=== PATIENT | male | born 1960 | race Caucasian/White ===

== ENCOUNTER → 2018-05-29 11:10 | Outpatient (CLI) | payer MEDICARE, SELFPAY ==
[2018-05-29 12:02] LABS: Basophils % 0.6 % (0.1-2.0); Eosinophils # 0.2 K/mm3 (0.0-0.4); Eosinophils % 2.5 % (0.1-12.0); Hematocrit 50.8 % (42.0-52.0); Lymphocytes # 2.2 K/mm3 (0.7-4.5); Lymphocytes % 31.4 % (10-50); Mean Corpuscular HGB Conc 33.5 g/dL (31.8-35.4); Mean Corpuscular Hemoglobin 30.9 pg (27.0-31.2); Mean Corpuscular Volume 92.2 fl (80-94); Mean Platelet Volume 7.3 fl (7.4-10.4); Monocytes # 0.5 K/mm3 (0.1-1.0); Monocytes % 6.9 % (1.7-9.3); Neutrophils # 4.1 K/mm3 (1.8-7.8); Neutrophils % 58.6 % (37.0-80.0); Platelet Count 241 K/mm3 (142-424); Red Blood Count 5.51 M/mm3 (4.60-6.20)
[2018-05-29 14:37] LABS: Alanine Aminotransferase 23 U/L (12-78); Albumin Level 4.2 gm/dL (3.4-5.0); Albumin/Globulin Ratio 1.1 (1.1-1.8); Alkaline Phosphatase 86 U/L (46-116); Anion Gap 15.7 mEq/L (5-15); Aspartate Amino Transferase 19 U/L (15-37); Bilirubin,Total 0.4 mg/dL (0.2-1.0); Blood Urea Nitrogen 22 mg/dL (7-18); Calcium 9.4 mg/dL (8.5-10.1); Carbon Dioxide 26 mmol/L (21.0-32.0); Chloride 104 mmol/L (98-107); Cholesterol 176 mg/dL (140-200); Creatinine,Serum 1.34 mg/dL (0.70-1.30); Estimated Glomerular Filt Rate 55 ml/min (>60); GFR (African American) 67 ML/MIN (>60); Globulin 3.7 gm/dl (1.3-3.2); Glucose 70 mg/dL (74-106); HDL Cholesterol 25 mg/dL (27-67); LDL Cholesterol 106 mg/dL (0-130); Potassium 4.7 mmoL/L (3.5-5.1); Sodium 141 mmol/L (136-145); Total Protein,Serum 7.9 gm/dL (6.4-8.2); Triglycerides 223 mg/dL (30-200); VLDL Cholesterol 45 mg/dL (0-40)
== END ==
PROVIDERS: PCP Family Medicine; Visit Provider Family Medicine
DX: R97.20 Elevated prostate specific antigen [PSA] (principal); I10 Essential (primary) hypertension; E78.5 Hyperlipidemia, unspecified
CPT/HCPCS: 36415; 80053; 80061; 84153; 85025

== ENCOUNTER → 2018-11-03 12:28 | Outpatient (CLI) | payer MEDICARE, SELFPAY ==
--- NOTE | 2018-11-03 12:32 | CT_ITS ---
CT lung screening EXAM: CT LUNG LOW DOSE WO CONTRAST HISTORY: 57 pack year smoking history, asymptomatic for lung cancer ITS.REASON: CURRENT TOBACCO USE ORDERING PHYSICIAN: Ganesh Garcia MD PATIENT AGE: 58 years COMPARISON: None TECHNIQUE: The exam was performed on a GE Light Speed [address] scanner using 2.90 mGy CTDI. A low dose helical CT CHEST was performed on a multi-detector scanner. All CT scans at the facility use one or more dose reduction, viz: automated exposure control, ma/kV adjustment per patient size (including targeted exams where dose is matched to indication, i.e. head), or iterative reconstruction technique. The LDCT was performed in a facility that meets the criteria for the screening program. Data regarding this exam was submitted to ACR which is an approved registry. The order for this exam indicates that it came as a result of a lung cancer screening counseling shard decision-making visit that included all the elements required of such a visit including smoking cessation. The radiologist interpreting this exam meets the CMS criteria for the LDCT lung cancer screening program. The exam is reported using the Lung-RADS classification scale and reported to the ACR registry. NOTE: This study was performed for the specific purposes of lung cancer screening and is not an alternative to diagnostic chest CT. RADIATION DOSE: CTDI vol(CT dose Index-volume) = 2.90mG DLP (Dose Length Product) = 107.86 all by mGcm FINDINGS: There is a right-sided aortic arch as a normal variant. Along the anterior and left lateral aspect of the proximal descending thoracic aorta there is a curvilinear area of calcification measuring 11 mm. Is may be due to a small aneurysm. Dedicated CT angiogram of the aorta suggested for further evaluation. There are coronary artery calcifications and calcified nodes are present. There is normal heart size. There is hyperinflation with attenuation of the peripheral pulmonary vessels consistent with COPD. A 4 mm nodule present in the right major fissure inferiorly axial image #48. There is mild diffuse bronchial thickening calcified granuloma is present in the left lower lobe there is an oval 13 x 8 mm nodular opacity along the left major fissure centrally possibly due to a fissural lymph node. Probably benign. Recommend 6 month follow-up. There are degenerative changes in the lower thoracic spine. IMPRESSION: 1. Lung RADS Category: 3, probably benign 2. 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 Recommend CT angiogram of the chest evaluation. COPD. Coronary artery disease RECOMMENDATIONS: 1. CT angiogram of the thoracic aorta. 2. [address] follow-up regarding 13 x 8 mm fissural nodule on the left.
== END ==
PROVIDERS: PCP Family Medicine; Visit Provider Family Medicine
DX: Z12.2 Encounter for screening for malignant neoplasm of respiratory organs (principal); Z87.891 Personal history of nicotine dependence

== ENCOUNTER → 2018-12-22 14:35 | Outpatient (CLI) | payer MEDICARE, SELFPAY ==
[2018-12-22 15:57] LABS: Blood Urea Nitrogen 18 mg/dL (7-18); Creatinine,Serum 1.53 mg/dL (0.70-1.30); Estimated Glomerular Filt Rate 47 ml/min (>60); GFR (African American) 57 ML/MIN (>60)
== END ==
PROVIDERS: Visit Provider Family Medicine
DX: I71.2 Thoracic aortic aneurysm, without rupture (principal)
CPT/HCPCS: 36415; 82565; 84520

== ENCOUNTER → 2018-12-23 12:41 | Outpatient (CLI) | payer MEDICARE, SELFPAY ==
--- NOTE | 2018-12-23 12:45 | CT_ITS ---
CT angio chest HISTORY: ITS.REASON: THORACIC AORTIC ANEURYSM ORDERING PHYSICIAN: Ganesh Garcia MD PATIENT AGE: 58 years COMPARISON: 11/03/2018. TECHNIQUE: Axial images obtained following the administration of 75 mL of Optiray 350 . Sagittal, and coronal reformatted images are also generated and reviewed. All CT scans at the facility use one or more dose reduction, viz: automated exposure control, ma/kV adjustment per patient size (including targeted exams where dose is matched to indication, i.e. head), or iterative reconstruction technique. FINDINGS: The airway structures are patent. The small nodules described on the prior report are stable. The remainder of the lung coburn are clear without pleural effusion or pneumothorax. There is a right-sided aortic arch. The left common carotid artery arises from the medial proximal ascending aorta followed by the origin of the right common carotid artery and then followed by the right subclavian artery which gives rise immediately to the right vertebral artery. There is no innominate artery. There is a diverticulum from the left lateral aspect of the proximal descending thoracic aorta and this measures 1.2 x 1.4 cm and at the tip of the diverticulum there is a small soft tissue density with peripheral calcification which does not opacify and could be related to the area of the ligamentous arteriosum. There is a centimeters segment of nonopacification distal to this area followed by contrast in the left-sided cleaving artery likely because of retrograde filling through the left vertebral artery. Remainder of the mediastinal and hilar areas are normal. Heart size is normal. Visualized portions of the upper abdominal structures are unremarkable. Impression: Stable lung nodules described on 11/03/2018 report. 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 No other change or acute process.
== END ==
PROVIDERS: PCP Family Medicine; Visit Provider Family Medicine
DX: I71.2 Thoracic aortic aneurysm, without rupture (principal); Q65.01 Congenital dislocation of right hip, unilateral
CPT/HCPCS: 71275; Q9967

== ENCOUNTER → 2019-07-27 11:06 | Outpatient (CLI) | payer MEDICARE, SELFPAY ==
--- NOTE | 2019-07-27 11:11 | XR_ITS ---
PROCEDURE: XR HIP RT 2-3V W/PELVIS CLINICAL INDICATION: RT HIP PAIN COMPARISON: LS5 LUMBAR SPINE 5 VIEWS from 03/21/2014 FINDINGS: There is deformity of the right femoral head and neck with enlargement the femoral head with flattening of the femoral head superiorly and osteophyte formation along the inferior aspect of the femoral head. There is decrease in the joint space on the right. No fracture or dislocation. IMPRESSION: Dysplastic changes of the right hip/coxa plana with mild osteoarthritic changes of the right hip Dictated by: Saroj Matthew MD 07/27/2019 11:56 Electronically signed by Saroj Matthew MD in [place] 07/27/2019 11:56
== END ==
PROVIDERS: PCP Family Medicine; Visit Provider Family Medicine
DX: Q65.01 Congenital dislocation of right hip, unilateral (principal)
CPT/HCPCS: 73502

== ENCOUNTER → 2020-10-23 13:48 | Outpatient (CLI) | payer MEDICARE, SELFPAY ==
--- NOTE | 2020-10-23 13:55 | XR_ITS ---
PROCEDURE: XR KNEE LT 4V CLINICAL INDICATION: left knee pain COMPARISON: No exams were available for comparison FINDINGS: No fracture or dislocation. No lytic or blastic change. There is normal mineralization. There are severe osteoarthritic changes of the medial compartment and patellofemoral joint and mild osteoarthritis of the lateral compartment. Osteophytes are present at the medial and lateral compartment and patellofemoral joint. There is a well-circumscribed lucency involving the proximal aspect of the tibia medially at 11 mm possibly due to a geode or bone cyst. Other findings:There is a small suprapatellar effusion IMPRESSION: Severe osteoarthritis with small suprapatellar effusion Dictated by: Saroj Matthew MD 10/23/2020 14:55 Saroj Matthew MD in [place] 10/23/2020 14:55
--- NOTE | 2020-10-23 13:55 | XR_ITS ---
PROCEDURE: XR KNEE RT 4V CLINICAL INDICATION: right knee pain COMPARISON: No exams were available for comparison FINDINGS: Status post total knee replacement. There is good alignment of the knee prosthesis with no obvious complications. There is increased density in the suprapatellar region which may be due to associated effusion. Other findings:None. IMPRESSION: Status post total knee replacement with good alignment Dictated by: Saroj Matthew MD 10/23/2020 15:00 Saroj Matthew MD in [place] 10/23/2020 15:00
--- NOTE | 2020-10-23 13:55 | XR_ITS ---
PROCEDURE: XR HIP LT 2-3V W/PELVIS RIGHT HIP 2-3 VIEWS CLINICAL INDICATION: left hip pain COMPARISON: DX XR HIP RT 2-3V W/PELVIS from 07/27/2019 CR XR HIP RT 2-3V W/PELVIS from 10/23/2020 FINDINGS: Right hip: Severe osteoarthritic changes are present involving the right hip with prominent subchondral cystic changes of the acetabulum and femoral head with deformity of the femoral head on the right/coxa plana. These findings are not significantly changed. There is a lucency in the mid femoral neck region possibly due to artifact. In addition there is a sclerotic density in the intertrochanteric area unchanged. The subchondral cystic changes are worse than when compared to the previous exam with areas of sclerosis around the subchondral cystic regions. There is mild lateral subluxation of the femoral head. Left hip: Unremarkable. No fracture or dislocation. No lytic or blastic change. IMPRESSION: Severe osteoarthritis of the right hip slightly progressed with subchondral cystic changes and deformity of the right femoral head/coxa plana. Negative left hip Dictated by: Saroj Matthew MD 10/23/2020 15:00 Saroj Matthew MD in [place] 10/23/2020 15:00
== END ==
PROVIDERS: PCP Family Medicine; Visit Provider Thoracic Surgery (Cardiothoracic Vascular Surgery)
DX: M25.551 Pain in right hip (principal); M25.561 Pain in right knee; M25.552 Pain in left hip; M25.562 Pain in left knee
CPT/HCPCS: 73502; 73564

== ENCOUNTER → 2021-01-25 11:57 | Outpatient (CLI) | payer MEDICARE, SELFPAY ==
--- NOTE | 2021-01-25 12:06 | XR_ITS ---
PROCEDURE: XR CHEST 2V CLINICAL HISTORY: Pure hyperglyceridemia COMPARISON: CT AGCHEST CT angio chest from 12/23/2018 FINDINGS: Mild cardiomegaly without failure. The lungs are clear without infiltrates, suspicious nodules, or pleural effusions. Degenerative changes thoracic spine IMPRESSION: Mild cardiomegaly otherwise negative Dictated by: Saroj Matthew MD 01/25/2021 13:12 Saroj Matthew MD in [place] 01/25/2021 13:12
[2021-01-25 12:33] LABS: Microscopic, Urine URINE MICROSCOPIC (MICROSCOPIC)
--- NOTE | 2021-01-25 12:38 | ECG_ITS ---
APPROVED REPORT Exam: Resting ECG HR:84 bpm ECG Measurements Heart Rate 84 AXES WA 154 P 41 QRSd 88 QRS 54 QT 352 T 32 QTc 415 Conclusion Normal sinus rhythm Cannot rule out Anterior infarct, age undetermined Abnormal ECG Electronically signed by : Jama Pryor MD 01/25/2021 18:52:18
[2021-01-25 13:27] LABS: Basophils # 0.1 K/mm3 (0-0.2); Basophils % 0.8 % (0.1-2.0); Eosinophils # 0.1 K/mm3 (0.0-0.4); Eosinophils % 1.3 % (0.1-12.0); Hemoglobin 16.2 g/dL (14.1-18.0); Lymphocytes # 2.2 K/mm3 (0.7-4.5); Lymphocytes % 27.5 % (10-50); Mean Corpuscular HGB Conc 33.8 g/dL (31.8-35.4); Mean Corpuscular Hemoglobin 31.6 pg (27.0-31.2); Mean Corpuscular Volume 93.4 fl (80-94); Mean Platelet Volume 8.9 fl (7.4-10.4); Monocytes # 0.4 K/mm3 (0.1-1.0); Monocytes % 5.4 % (1.7-9.3); Neutrophils # 5.1 K/mm3 (1.8-7.8); Neutrophils % 65.1 % (37.0-80.0); Platelet Count 264 K/mm3 (142-424); Red Blood Count 5.14 M/mm3 (4.60-6.20); Red Cell Distribution Width 13.6 % (11.5-17.5); White Blood Count 7.9 K/mm3 (4.8-10.8)
[2021-01-25 13:31] LABS: Appearance,Urine CLEAR (Clear); Bilirubin,Urine Negative (Negative); Blood, Urine Negative (Negative); Color,Urine YELLOW (Yellow); Glucose,Urine (UA) Negative (Negative); Ketones,Urine Negative (Negative); Leukocyte Esterase,Urine Negative (Negative); Nitrate,Urine Negative (Negative); PH,Urine 5.5 (5.0-8.5); Protein,Urine Negative (Negative); Specific Gravity, Urine 1.025 (1.005-1.030); Urobilinogen,Urine 0.2 EU/dl (0.2)
[2021-01-25 13:46] LABS: Activated Partial Thrombo Time 27.3 seconds (22.8-30.6); Hemoglobin A1C 5.9 % (4.0-6.0); Prothrombin Time 11.2 seconds (10.1-12.5)
[2021-01-25 13:48] LABS: INR 0.95 (0.9-1.1)
[2021-01-25 14:16] LABS: Alanine Aminotransferase 19 U/L (12-78); Albumin Level 4.2 g/dl (3.5-5.0); Albumin/Globulin Ratio 1.2 (1.1-1.8); Alkaline Phosphatase 125 U/L (38-126); Anion Gap 17.3 mEq/L (5-15); Aspartate Amino Transferase 43 U/L (17-59); Bilirubin,Total 0.9 mg/dl (0.2-1.3); Blood Urea Nitrogen 16 mg/dl (9-20); Calcium 9.4 mg/dl (8.4-10.2); Carbon Dioxide 25 mmol/L (22.0-30.0); Chloride 102 mmol/L (98-107); Chol/HDL Ratio 6.1 (1-3.5); Cholesterol 183 mg/dl (140-200); Estimated Glomerular Filt Rate 62 ml/min (>60); GFR (African American) 75 ML/MIN (>60); Globulin 3.4 g/dL (1.3-3.2); Glucose 115 mg/dl (74-100); HDL Cholesterol 30 mg/dl (40-60); Potassium 4.3 mmoL/L (3.5-5.1); Sodium 140 mmol/L (136-145); Total Protein,Serum 7.6 g/dl (6.3-8.2); Triglycerides 330 mg/dl (30-150); VLDL Cholesterol 66 mg/dL (0-40)
[2021-01-25 14:21] LABS: Squamous Epithelial Cell,Urine Occasional #/hpf (0-5)
[2021-01-25 14:27] LABS: Direct LDL Cholesterol 92.27 mg/dL (100-129)
[2021-01-25 14:46] LABS: Prostate Specific Ag Screen 7.4 ng/ml (0.0-4.0)
== END ==
PROVIDERS: PCP Family Medicine; Visit Provider Family Medicine
DX: Z01.818 Encounter for other preprocedural examination (principal); I10 Essential (primary) hypertension; E78.1 Pure hyperglyceridemia; Z12.5 Encounter for screening for malignant neoplasm of prostate; Z51.81 Encounter for therapeutic drug level monitoring; Z79.899 Other long term (current) drug therapy
CPT/HCPCS: 36415; 71046; 80053; 80061; 81001; 83036; 85025; 85610; 85730; 93005; G0103

== ENCOUNTER → 2021-02-07 07:43 | Outpatient (CLI) | payer MEDICARE, SELFPAY ==
--- NOTE | 2021-02-07 07:52 | CA_ITS ---
APPROVED REPORT EXAM: Comprehensive 2D, Doppler, and color-flow Echocardiogram Ice Resurfacing Machine Operators: Layne Palmer RVT Ht: 6 ft 0 in Wt: 273lbs BSA: 2.43 BP: 151/89 mmHg Indications: LT RETINAL ART OCCLUSION,HTN,SMOKER,HLD,SOA,GERD,EDEMA 2D Dimensions LVOT 2.58 cm (M/F) 1.5-2.5 LA Volume 24.90 mL LA Volume Index 10.24 mL/m2 (M/F) 16-34 M-Mode Dimensions RVDd 2.53 cm (0.9-2.6) LA Diam 4.26 cm (1.9-4.0) LVDd 3.60 cm (3.5-5.7) Ao Diam 3.32 cm (2.0-3.7) LVDs 2.46 cm (3.5-5.7) IVSd 1.10 cm (0.6-1.1) PWd 0.98 cm (0.6-1.1) EF (Teich) 60.70% FS 31.70% EDV (Teich) 54.40 mL TAPSE 2.17 (<1.7) ESV (Teich) 21.40 mL LV Diastology E Decel Time 290.00 (160-240 msec) E/A Ratio 0.7 MED E' 4.40 (< 7 cm/sec) E'/MED E' Ratio 18.43 (>14) LAT E' 9.00 (<10 cm/sec) E/LAT E' Ratio 9.01 (>14) Aortic Valve AO Peak GR. 6.30 mmHg Mitral Valve MV E Max Ministerio. 81.00 (40-130 cm/s) MV A Velocity 122.00 (40-130 cm/s) E/A Ratio 0.67 MV Decel. Time 290.00 (160-240 ms) MV PHT 85.00 ms Pulmonary Valve PV Peak Velocity 95.00 (50-150 cm/s) Left Ventricle Left atrium is mildly enlarged, left ventricle is normal size, mild concentric left ventricular hypertrophy, visually estimated ejection fraction 55% with no regional wall motion abnormality, grade 1 diastolic dysfunction seen without tissue Doppler evidence of raise left atrial pressure. Right Ventricle Right atrium and right ventricle are normal size and contractility. Aortic Valve Aortic valve is thickened and calcified without Doppler evidence of aortic stenosis or aortic insufficiency. Mitral Valve Mitral valve leaflets are minimally thickened, there is mild mitral regurgitation. Tricuspid Valve Tricuspid valve is grossly normal, there is mild tricuspid regurgitation. Tricuspid regurgitation jet velocity is inadequate for calculation of the right ventricular systolic pressure. Pulmonic Valve Pulmonic valve is poorly visualized. Great Vessels Aortic root is normal size. Pericardium No significant pericardial effusion noted. Conclusion 1. Mildly enlarged left atrium, normal left ventricular size, mild concentric left ventricular hypertrophy, visually estimated ejection fraction 55% with no regional wall motion abnormality, grade 1 diastolic dysfunction seen without tissue Doppler evidence of raise left atrial pressure. 2. Thickened and calcified aortic valve without aortic stenosis or aortic insufficiency. 3. Mild mitral and tricuspid regurgitation. 4. No significant pericardial effusion noted. Electronically signed by : Kyle Bland MD 02/08/2021 10:37:10
--- NOTE | 2021-02-07 07:53 | CA_ITS ---
APPROVED REPORT Advertising Dispatch Clerk: Layne Palmer RVT Laterality: Bilateral Study Quality: Good Indications: LT RETINAL ART OCCLUSION,LT VISUAL DISTURBANCE Risk Factors Hypertension: Hyperlipidemia Smoking Doppler Spectral Velocity Analysis ECA (R) 121.90/24.60 cm/s ECA (L) 100.50/20.30 cm/s dICA (R) 68.40/24.60 cm/s dICA (L) 74.90/31.00 cm/s Sandra (R) 65.20/25.70 cm/s Sandra (L) 87.70/35.30 cm/s pICA (R) 80.20/18.20 cm/s pICA (L) 75.90/27.80 cm/s dCCA (R) 62.00/17.10 cm/s dCCA (L) 71.60/15.00 cm/s pCCA (R) 112.30/21.40 cm/s pCCA (L) 93.00/22.50 cm/s Vert (R) 56.70/13.90 cm/s Vert (L) 69.50/2.10 cm/s ICA/CCA 1.29 ICA/CCA 1.22 Findings Study suggests less than 20% stenosis of the right internal cartoid artery. Study suggests 20-49% stenosis (lower end of scale) of the left internal cartoid artery. Retrograde flow seen in the left verterbral artery. Antegrade flow in the right verterbral artery. Conclusion Study suggests less than 20% stenosis of the right internal cartoid artery. Study suggests 20-49% stenosis (lower end of scale) of the left internal cartoid artery. Retrograde flow seen in the left verterbral artery suggesting stenosis of left subclavian artery. Antegrade flow in the right verterbral artery. Electronically signed by : Saroj Matthew MD 02/07/2021 17:57:47
== END ==
PROVIDERS: PCP Family Medicine
DX: H34.12 Central retinal artery occlusion, left eye (principal); H35.00 Unspecified background retinopathy; R06.02 Shortness of breath; I10 Essential (primary) hypertension; Z72.0 Tobacco use
CPT/HCPCS: 93306; 93880

== ENCOUNTER → 2021-02-11 10:41 | Outpatient (CLI) | payer MEDICARE, SELFPAY ==
[2021-02-11 11:31] LABS: Basophils # 0.1 K/mm3 (0-0.2); Basophils % 0.9 % (0.1-2.0); Eosinophils # 0.2 K/mm3 (0.0-0.4); Eosinophils % 2.7 % (0.1-12.0); Hematocrit 48.4 % (42.0-52.0); Hemoglobin 16.2 g/dL (14.1-18.0); Lymphocytes % 27.7 % (10-50); Mean Corpuscular HGB Conc 33.4 g/dL (31.8-35.4); Mean Corpuscular Hemoglobin 31.4 pg (27.0-31.2); Mean Corpuscular Volume 93.8 fl (80-94); Mean Platelet Volume 7.6 fl (7.4-10.4); Monocytes # 0.4 K/mm3 (0.1-1.0); Monocytes % 5.2 % (1.7-9.3); Neutrophils # 4.6 K/mm3 (1.8-7.8); Neutrophils % 63.5 % (37.0-80.0); Platelet Count 223 K/mm3 (142-424); Red Blood Count 5.16 M/mm3 (4.60-6.20); White Blood Count 7.2 K/mm3 (4.8-10.8)
[2021-02-11 12:15] LABS: Erythrocyte Sedimentation Rate 17 mm/hr (0-20)
[2021-02-11 12:26] LABS: Alanine Aminotransferase 18 U/L (12-78); Albumin Level 3.9 g/dl (3.5-5.0); Alkaline Phosphatase 91 U/L (38-126); Amylase 50 U/L (30-110); Anion Gap 14.3 mEq/L (5-15); Aspartate Amino Transferase 28 U/L (17-59); Bilirubin,Direct 0.3 mg/dl (0.0-0.4); Bilirubin,Indirect 0.2 mg/dL (0.0-0.9); Bilirubin,Total 0.5 mg/dl (0.2-1.3); Bilirubin,Unconjugated 0.2 mg/dL (0.0-1.1); Blood Urea Nitrogen 17 mg/dl (9-20); Calcium 9.4 mg/dl (8.4-10.2); Carbon Dioxide 26 mmol/L (22.0-30.0); Chloride 104 mmol/L (98-107); Estimated Glomerular Filt Rate 57 ml/min (>60); GFR (African American) 69 ML/MIN (>60); Glucose 113 mg/dl (74-100); Lipase 28 U/L (23-300); Potassium 4.3 mmoL/L (3.5-5.1); Sodium 140 mmol/L (136-145); Total Protein,Serum 7.3 g/dl (6.3-8.2)
[2021-02-11 12:32] LABS: C-Reactive Protein 11.7 mg/L (0-4)
[2021-02-11 12:44] LABS: Prothrombin Time 11.1 seconds (10.1-12.5)
[2021-02-11 12:46] LABS: INR 0.94 (0.9-1.1)
[2021-02-12 09:37] LABS: HIV Screen 4th Generation wRfx Non Reactive (Non Reactive)
[2021-02-12 17:29] LABS: Treponema pallidum Ab (FTA-ABS Non Reactive (Non Reactive)
[2021-02-13 00:07] LABS: Protein C Functional 98 % (73-180); Protein S, Free 124 % (61-136); Protein S, Total 93 % (60-150); Protein S-Functional 102 % (63-140)
[2021-02-13 02:08] LABS: Rapid Plasma Reagin Ab Titer Non Reactive (NonRea<1:1)
[2021-02-14 17:38] LABS: QuantiFERON-TB Gold Plus Negative (Negative)
== END ==
PROVIDERS: Visit Provider Ophthalmology Retina Specialist
DX: H34.12 Central retinal artery occlusion, left eye (principal); Z11.4 Encounter for screening for human immunodeficiency virus [HIV]
CPT/HCPCS: 36415; 80048; 80076; 81241; 82150; 83690; 85025; 85302; 85305; 85306; 85610; 85651; 86140; 86480; 86592; 86703; 86780; G0432

== ENCOUNTER → 2021-05-03 11:09 | Outpatient (CLI) | payer MEDICARE, SELFPAY ==
[2021-05-03 11:16] LABS: Microscopic, Urine URINE MICROSCOPIC (MICROSCOPIC)
--- NOTE | 2021-05-03 11:21 | XR_ITS ---
PROCEDURE: XR CHEST 2V CLINICAL HISTORY: HIGH BLOOD PRESSURE, PRE-OPERATIVE COMPARISON: CT AGCHEST CT angio chest from 12/23/2018 CR XR CHEST 2V from 01/25/2021 FINDINGS: There is a right-sided aortic arch. Normal heart size. The lungs are clear without infiltrates, suspicious nodules, or pleural effusions. Degenerative changes thoracic spine. IMPRESSION: No change with no acute finding. Incidental note made of right-sided aortic arch Dictated by: Saroj Matthew MD 05/03/2021 11:53 Saroj Matthew MD in [place] 05/03/2021 11:53
[2021-05-03 12:00] LABS: Basophils # 0.1 K/mm3 (0-0.2); Basophils % 1.1 % (0.1-2.0); Eosinophils # 0.2 K/mm3 (0.0-0.4); Hematocrit 48.4 % (42.0-52.0); Hemoglobin 16.1 g/dL (14.1-18.0); Lymphocytes # 2.6 K/mm3 (0.7-4.5); Lymphocytes % 30.6 % (10-50); Mean Corpuscular HGB Conc 33.3 g/dL (31.8-35.4); Mean Corpuscular Hemoglobin 30.9 pg (27.0-31.2); Mean Corpuscular Volume 92.8 fl (80-94); Mean Platelet Volume 8.6 fl (7.4-10.4); Monocytes # 0.4 K/mm3 (0.1-1.0); Neutrophils # 5.1 K/mm3 (1.8-7.8); Neutrophils % 61.3 % (37.0-80.0); Platelet Count 272 K/mm3 (142-424); Red Blood Count 5.22 M/mm3 (4.60-6.20); Red Cell Distribution Width 13.5 % (11.5-17.5); White Blood Count 8.3 K/mm3 (4.8-10.8)
[2021-05-03 12:29] LABS: Chloride 104 mmol/L (98-107); Potassium 5.1 mmoL/L (3.5-5.1); Sodium 140 mmol/L (136-145)
[2021-05-03 12:31] LABS: Alanine Aminotransferase 13 U/L (12-78); Aspartate Amino Transferase 28 U/L (17-59); Blood Urea Nitrogen 15 mg/dl (9-20); Estimated Glomerular Filt Rate 52 ml/min (>60); GFR (African American) 63 ML/MIN (>60)
[2021-05-03 12:32] LABS: Albumin Level 4.1 g/dl (3.5-5.0); Albumin/Globulin Ratio 1.4 (1.1-1.8); Alkaline Phosphatase 100 U/L (38-126); Anion Gap 13.1 mEq/L (5-15); Bilirubin,Total 0.4 mg/dl (0.2-1.3); Calcium 9.7 mg/dl (8.4-10.2); Carbon Dioxide 28 mmol/L (22.0-30.0); Globulin 2.9 g/dL (1.3-3.2); Glucose 107 mg/dl (74-100)
[2021-05-03 15:08] LABS: INR 0.99 (0.9-1.1); Prothrombin Time 11.2 seconds (10.1-12.5)
[2021-05-03 23:10] LABS: Appearance,Urine CLEAR (Clear); Bilirubin,Urine Negative (Negative); Blood, Urine Negative (Negative); Color,Urine YELLOW (Yellow); Glucose,Urine (UA) Negative (Negative); Ketones,Urine Negative (Negative); Leukocyte Esterase,Urine Negative (Negative); Nitrate,Urine Negative (Negative); Protein,Urine Negative (Negative); Specific Gravity, Urine 1.025 (1.005-1.030); Urobilinogen,Urine 0.2 EU/dl (0.2)
[2021-05-03 23:30] LABS: Bacteria,Urine Trace /lpf; Squamous Epithelial Cell,Urine Occasional #/hpf (0-5); WBC,Urine Occasional #/hpf (0-3)
== END ==
PROVIDERS: Visit Provider Family Medicine
DX: Z01.818 Encounter for other preprocedural examination (principal); Z51.81 Encounter for therapeutic drug level monitoring
CPT/HCPCS: 36415; 71046; 80053; 81001; 85025; 85610; 85730

== ENCOUNTER → 2021-07-03 13:14 | Outpatient (CLI) | payer MEDICARE, SELFPAY | PROVIDERS: PCP Family Medicine; Visit Provider Nurse Practitioner | DX: Z20.822 Contact with and (suspected) exposure to COVID-19 (principal) | CPT/HCPCS: C9803; U0003; U0005 ==

== ENCOUNTER → 2021-09-20 15:14 | Outpatient (CLI) | payer MEDICARE, SELFPAY ==
--- NOTE | 2021-09-20 15:18 | XR_ITS ---
FINAL REPORT CLINICAL HISTORY: HTN COMPARISON: May 03, 2021 FINDINGS: TWO-VIEW CHEST The heart size is normal. The mediastinum is normal. The lungs are clear. There is no pneumothorax. There is moderate degenerative change of the thoracic spine. IMPRESSION: No acute cardiopulmonary process. Reviewed, Interpreted and Dictated by Darrin Morfin III, MD Transcribed by [employer] Authenticated by Darrin Morfin III, MD on 09/20/2021 03:55:37 PM [facility]
[2021-09-20 15:42] LABS: Microscopic, Urine URINE MICROSCOPIC (MICROSCOPIC)
--- NOTE | 2021-09-20 15:59 | ECG_ITS ---
APPROVED REPORT Exam: Resting ECG HR:89 bpm ECG Measurements Heart Rate 89 AXES WV 168 P 29 QRSd 95 QRS 71 QT 343 T 41 QTc 389 Conclusion SINUS RHYTHM LOW QRS VOLTAGE IN PRECORDIAL LEADS [QRS DEFLECTION < 1.0 mV IN CHEST LEADS] POSSIBLE ANTERIOR MYOCARDIAL INFARCTION , OF INDETERMINATE AGE [30 ms Q WAVE IN V3/V4, OR R < 0.2 mV IN V4] ABNORMAL ECG UNCONFIRMED REPORT Electronically signed by : Jama Pryor MD 09/21/2021 12:09:42
--- NOTE | 2021-09-20 16:45 | PC.NURSE ---
Kyle Olivas read pts EKG before leaving facility.
[2021-09-20 17:01] LABS: Appearance,Urine CLEAR (Clear); Bilirubin,Urine Negative (Negative); Blood, Urine Negative (Negative); Color,Urine YELLOW (Yellow); Glucose,Urine (UA) Negative (Negative); Ketones,Urine Negative (Negative); Leukocyte Esterase,Urine Negative (Negative); Nitrate,Urine Negative (Negative); Protein,Urine Negative (Negative); Urobilinogen,Urine 0.2 EU/dl (0.2)
[2021-09-20 17:02] LABS: Basophils # 0.1 K/mm3 (0-0.2); Basophils % 1.9 % (0.1-2.0); Eosinophils # 0.2 K/mm3 (0.0-0.4); Eosinophils % 2.3 % (0.1-12.0); Hematocrit 46.7 % (42.0-52.0); Hemoglobin 15.7 g/dL (14.1-18.0); Lymphocytes # 2.8 K/mm3 (0.7-4.5); Mean Corpuscular HGB Conc 33.7 g/dL (31.8-35.4); Mean Corpuscular Volume 92.2 fl (80-94); Mean Platelet Volume 8.4 fl (7.4-10.4); Monocytes # 0.5 K/mm3 (0.1-1.0); Monocytes % 6.3 % (1.7-9.3); Neutrophils % 52.5 % (37.0-80.0); Platelet Count 264 K/mm3 (142-424); Red Blood Count 5.07 M/mm3 (4.60-6.20); Red Cell Distribution Width 13.8 % (11.5-17.5); White Blood Count 7.6 K/mm3 (4.8-10.8)
[2021-09-20 17:15] LABS: Activated Partial Thrombo Time 26.9 seconds (22.8-30.6); INR 0.97 (0.9-1.1)
[2021-09-20 17:19] LABS: Chloride 106 mmol/L (98-107); Potassium 4.2 mmoL/L (3.5-5.1); Sodium 138 mmol/L (136-145)
[2021-09-20 17:21] LABS: Blood Urea Nitrogen 15 mg/dl (9-20); Estimated Glomerular Filt Rate 52 ml/min (>60); GFR (African American) 63 ML/MIN (>60)
[2021-09-20 17:22] LABS: Anion Gap 11.2 mEq/L (5-15); Calcium 8.8 mg/dl (8.4-10.2); Carbon Dioxide 25 mmol/L (22.0-30.0); Glucose 77 mg/dl (74-100)
[2021-09-20 18:14] LABS: Squamous Epithelial Cell,Urine Occasional #/hpf (0-5)
== END ==
PROVIDERS: PCP Family Medicine; Visit Provider Family Medicine
DX: Z01.818 Encounter for other preprocedural examination (principal); Z51.81 Encounter for therapeutic drug level monitoring
CPT/HCPCS: 36415; 71046; 80048; 81001; 85025; 85610; 85730; 93005

== ENCOUNTER → 2021-10-11 07:11 | Outpatient (CLI) | payer MEDICARE, SELFPAY ==
--- NOTE | 2021-10-11 | CA_ITS ---
APPROVED REPORT Exam: Pharmacologic Technologist: Naheed Juarez, Ht: 6 ft 0 in Wt: 276 lbs BSA: 2.44 m2 HR: 63 bpm BP: 121/70 mmHg Rhythm: NSR, NSSTTN abnormalities Medical History Medical History: Smoking Medications: Omeprazole,,,,, Aspirin,,,,, Gabapentin,,,,, Benazepril,,,,, Naproxen,,,,, ZanTAC,,,,, MoRPHINE,,,,, Cardiac Risk Factors: Smoking, FHX of CAD Stress Test Details Test: LEXISCAN HR Resting HR: 75 bpm Max Heart Rate (APMHR): 161.401576 bpm Max HR Achieved: 96 bpm Target HR (85% APMHR): 136.636632 bpm % of APMHR: 59.63 Recovery HR: 79 bpm BP Resting BP: 121/70 mmHg Max BP: 132/77 mmHg Recovery BP: 115.0/75.0 mmHg ECG Resting ECG: NSR, NSSTTN abnormalities Clinical Reason for Termination: Completed Protocol Exercise duration: 04:02 min Highest Stage Achieved: Stress ECG Conclusion During lexiscan pt experinced no symptoms, no arrhythmias noted. <1.5mm ST segment changes. Non diagnostic. Test Summary . . . . . . Stop exercise at 04:02 . . . . Electronically signed by : Kyle Bland MD 10/11/2021 13:01:24
--- NOTE | 2021-10-11 07:19 | NM_ITS ---
APPROVED REPORT Exam: Nuclear Stress Test Indication: HTN, HYPERLIPIDEMIA, TOB USE, FM HX., SOB, FATIGUE Patient Location: Outpatient Stress Tech: Naheed Juarez [place] Tech:KIP Kelly RT (R)(N)(M) Ht: 6 ft 0 in Wt: 278 lbs HR: 63 bpm BP: 121/70 mmHg BSA: 2.45 m2 TID: 63 History: HTN, HYPERLIPIDEMIA, TOB USE, FM HX., SOB, FATIGUE Procedure: Patient received a 0.4 mg of intravenous Lexiscan, resting heart rate 63 bpm, resting blood pressure 121/70 mmHg, with Lexiscan maximum heart rate achived was 84 bpm which is Less than 85 % of the maximum predicted heart rate and blood pressure was 115/70 mmHg. With Lexiscan, patient denied any complaint of chest pain. Electrocardiogram Resting electrocardiogram shows sinus rhythm, with Lexiscan there is less than 1.[address] segment depression noted from the baseline EKG. The EKG portion of the Lexiscan is nondiagnostic. Cardiac Stress and Resting SPECT Images: Cardiac Stress and Resting SPECT images were obtained using technetium 99m Myoview 31.8 mCi stress and 10.34 mCi at rest. Gated SPECT for analysis of segmental wall motion and calculation of the ejection fraction also done, prone images were also obtained. Cardiac stress and rest SPECT images show fixed defect involving the inferior posterior basal wall consistent with area of myocardial scarring without significant renate-infarct ischemia, there is transient ischemic dilatation of the left ventricle seen, raising the concern for presence of multivessel coronary artery disease, computer derived ejection fraction is 58% with moderate inferior basal wall hypokinesis, right ventricle is mildly enlarged with normal contractility. Conclusion: 1. The EKG portion of the Lexiscan is nondiagnostic. 2. Scintigraphic evidence of myocardial scarring involving the inferior and posterior basal wall, there is transient ischemic dilatation of the left ventricle seen raising the concerns for presence of multivessel coronary artery disease. Computer derived ejection fraction 58% with segmental wall motion abnormality described above, right ventricle is mildly enlarged with normal contractility. 3. Abnormal Lexiscan Myoview study. Electronically signed by : Kyle Bland MD 10/11/2021 13:04:21
[2021-10-11 11:31] LABS: Alanine Aminotransferase 21 U/L (12-78); Albumin Level 4.1 g/dl (3.5-5.0); Alkaline Phosphatase 86 U/L (38-126); Aspartate Amino Transferase 26 U/L (17-59); Bilirubin,Indirect 0.3 mg/dL (0.0-0.9); Bilirubin,Total 0.3 mg/dl (0.2-1.3); Bilirubin,Unconjugated 0.3 mg/dL (0.0-1.1); Chol/HDL Ratio 6.9 (1-3.5); Cholesterol 165 mg/dl (140-200); HDL Cholesterol 24 mg/dl (40-60); Triglycerides 270 mg/dl (30-150); VLDL Cholesterol 54 mg/dL (0-40)
[2021-10-11 11:42] LABS: Direct LDL Cholesterol 98.81 mg/dL (100-129)
== END ==
PROVIDERS: PCP Family Medicine; Visit Provider Nurse Practitioner
DX: F17.200 Nicotine dependence, unspecified, uncomplicated (principal); K21.9 Gastro-esophageal reflux disease without esophagitis; R06.00 Dyspnea, unspecified; R94.31 Abnormal electrocardiogram [ECG] [EKG]; Z82.49 Family history of ischemic heart disease and other diseases of the circulatory system; E78.5 Hyperlipidemia, unspecified
CPT/HCPCS: 36415; 78452; 80061; 80076; 93017; A9502; J2785

== ENCOUNTER → 2021-10-22 09:35 | Outpatient (CLI) | payer MEDICARE, SELFPAY ==
[2021-10-22 10:37] LABS: Basophils # 0.1 K/mm3 (0-0.2); Basophils % 1.9 % (0.1-2.0); Eosinophils # 0.1 K/mm3 (0.0-0.4); Hematocrit 45.9 % (42.0-52.0); Hemoglobin 15.7 g/dL (14.1-18.0); Lymphocytes # 2.4 K/mm3 (0.7-4.5); Lymphocytes % 33.4 % (10-50); Mean Corpuscular HGB Conc 34.2 g/dL (31.8-35.4); Mean Corpuscular Hemoglobin 31.7 pg (27.0-31.2); Mean Corpuscular Volume 92.9 fl (80-94); Mean Platelet Volume 7.5 fl (7.4-10.4); Monocytes # 0.5 K/mm3 (0.1-1.0); Monocytes % 7.3 % (1.7-9.3); Neutrophils # 3.9 K/mm3 (1.8-7.8); Neutrophils % 55.4 % (37.0-80.0); Platelet Count 236 K/mm3 (142-424); Red Blood Count 4.94 M/mm3 (4.60-6.20); Red Cell Distribution Width 13.8 % (11.5-17.5); White Blood Count 7.1 K/mm3 (4.8-10.8)
[2021-10-22 10:51] LABS: Anion Gap 10.7 mEq/L (5-15); Blood Urea Nitrogen 18 mg/dl (9-20); Calcium 9.5 mg/dl (8.4-10.2); Carbon Dioxide 30 mmol/L (22.0-30.0); Chloride 102 mmol/L (98-107); Estimated Glomerular Filt Rate 52 ml/min (>60); GFR (African American) 63 ML/MIN (>60); Glucose 97 mg/dl (74-100); Potassium 4.7 mmoL/L (3.5-5.1); Sodium 138 mmol/L (136-145)
== END ==
PROVIDERS: Visit Provider Nurse Practitioner
DX: F17.200 Nicotine dependence, unspecified, uncomplicated (principal); I10 Essential (primary) hypertension; I20.8 Other forms of angina pectoris; K21.9 Gastro-esophageal reflux disease without esophagitis; R06.00 Dyspnea, unspecified; R94.31 Abnormal electrocardiogram [ECG] [EKG]; R94.39 Abnormal result of other cardiovascular function study; Z82.49 Family history of ischemic heart disease and other diseases of the circulatory system; I63.9 Cerebral infarction, unspecified
CPT/HCPCS: 36415; 80048; 85025; C9803; U0003; U0005

== ENCOUNTER 2021-10-23 08:48 | Day surgery (SDC) | payer MEDICARE, SELFPAY ==
[2021-10-23] VITALS (11 sets, daily range): BP systolic 84–170; BP diastolic 44–100; PULSE 61–80; RESP 16–20; TEMP 36.1; O2SAT 65–100; BMI 37.5
--- NOTE | 2021-10-23 07:09 | IR_ITS ---
APPROVED REPORT Patient Location: Outpatient Desktop [employer] Specialist: KIP Rodriguez RT (R) PROCEDURES Selective coronary angiogram Drug-eluting stent deployment to the ostial proximal mid circumflex artery INDICATION Acute non-ST elevation myocardial infarction, Coronary artery disease Informed consent was obtained prior to the procedure. COMPLICATIONS See below Estimated Blood Loss: LESS THAN 10 ML TECHNIQUE One percent lidocaine used to anesthetize the right anterior aspect of the wrist. The right radial artery was accessed via the Seldinger technique. A 6 Swazi sheath was placed in the right radial artery. 2.5 mg of verapamil, 800 mcg of nitroglycerin, 1mg Lidocaine and 5000 U Heparin were given through the arterial sheath. The papa catheter was also used to perform l selective coronary angiogram. At the end of the diagnostic angiogram therapeutic heparin was administered giving a therapeutic ACT. A Choice PT extra-support wire was placed into the circumflex artery followed by a guide liner. A 2 mm balloon was used to predilate the stenosis following this a 2.25 x 38 mm resolute Sourav stent was deployed at 20 manda reducing the critical stenosis to 0%. An additional 2.25 x 8 mm resolute [place] stent was placed proximal to this in the ostium and deployed at 22 manda reducing the severe stenosis to 0%. MARVIN-3 flow was present before and after the procedure. At the end of procedure there was a demonstrable small distal wire perforation accompanied by MARVIN-3 flow. The apparatus was removed the sheath was removed good hemostasis was achieved using TR banding patient was transferred to the postop putting her stable condition for stat echocardiogram ANGIOGRAPHIC RESULTS The left main artery Has a distal 30% stenosis The left anterior descending artery Is a small caliber vessel and has a proximal 30 to 40% stenosis. The LAD then bifurcates and gives rise to a large first diagonal artery which has a proximal to mid vessel 50% stenosis The circumflex artery Is a nondominant yet still large vessel and has a proximal 90% stenosis followed by a stent which then has an additional 50% in-stent restenotic lesion. The right coronary artery Is a massively large dominant vessel which has proximal 20 and 30% stenosis followed by mid vessel stent which has a mid vessel 50% stenosis followed by a small vascular ectatic area followed by diffuse 40% stenosis. A large posterior descending artery has an ostial 80% stenosis while the posterior lateral branch is large has an ostial 70% stenosis The OSPINA ventriculogram reveals Not performed The left ventricular end-diastolic pressure Not measured IMPRESSION Critical disease in the ostial proximal circumflex artery as described above with successful stenting reducing the stenosis to 0% Small wire perforation identified distally in the circumflex artery Coronary artery disease as described above PLAN 1. Stat echocardiogram 2. Serial echocardiogram in 1 hour and monitor for cardiac tamponade 3. Dual antiplatelet therapy 4. After 30 days I would like for patient to be seen at [facility] to determine if he is a possible candidate for bypass surgery. My suspicion is patient's lung disease is severe enough where he is not a candidate from a pulmonary standpoint 5. Cardiac rehabilitation 6. LDL less than 55 to be achieved with high intensity statin Electronically signed by : Dionisio Earl MD 10/23/2021 12:52:03
== END 2021-10-23 14:46 | disposition home or self-care (01) ==
LOC: CATHLAB 08:49
PROVIDERS: PCP Family Medicine; Visit Provider Internal Medicine
DX: F17.200 Nicotine dependence, unspecified, uncomplicated (principal); I25.118 Atherosclerotic heart disease of native coronary artery with other forms of angina pectoris; K21.9 Gastro-esophageal reflux disease without esophagitis; R06.00 Dyspnea, unspecified; R94.31 Abnormal electrocardiogram [ECG] [EKG]; R94.39 Abnormal result of other cardiovascular function study; Z82.49 Family history of ischemic heart disease and other diseases of the circulatory system; Z79.899 Other long term (current) drug therapy; I10 Essential (primary) hypertension; E78.5 Hyperlipidemia, unspecified
CPT/HCPCS: 93458; 99152; C1725; C1760; C1769; J1644; Q9967

== ENCOUNTER 2021-11-13 12:02 | Emergency (ER) | payer MEDICARE, SELFPAY ==
[2021-11-13 12:10] VITALS: BP 129/75; PULSE 84; RESP 19; TEMP 37.1; O2SAT 96; BMI 31.1
--- NOTE | 2021-11-13 12:34 | HMH.EDUTC ---
[facility] Disposition Clinical Impression: Exposure to COVID-19 virus Disposition: Home, Self-Care Condition on Discharge: Good Instructions: DI for COVID-19 (Suspected or Confirmed ), Preventing the Spread of Coronavirus Discharge Instructions Additional Instructions: *Monitor Temp, Over the counter Motrin or Tylenol as directed/as needed Tylenol every 4 hours and Motrin every 6 hours (as long as your family doctor has told you that you can take it) for fever or pain. and straight to ER if unable to lower temp less than 101.0 after medication given *Warm salt water gargles may help to soothe the throat *Throat Lozenges *Warm fluids like tea with honey may help to soothe the throat *Sleep elevated *Humidifier/Vaporizer *Flonase 2 sprays in each nostril daily but be aware that it may take 2-3 days before you notice improvement *Bromfed may cause drowsiness. Know how it effects you (your child) before driving, caring for small child, or sending your child to school. Not other antihistamines/allergy medications while taking bromfed Your throat swab was sent for culture. Those results are typically sent to your primary care. Be sure to follow up in 2-3 days with your family doctor/primary care physician if no improvement so they can review those result and treat if necessary. If you don?t have a primary care doctor, I recommend you get one but in the mean time, you will have to return to a walk in clinic Follow up IMMEDIATELY for new or worsening symptoms or no Noticeable improvement over the next 48-72 hours. 911 for difficulty breathing or swallowing You were tested for today for COVID19 your test result should be back in the next 24-48 hours, you may check your results on the [facility] My Health Portal Make sure to take your Vitamins Vit. C Vit D and Zinc if you can take them Referrals: Ganesh Garcia MD [Primary Care Provider] - As needed Forms: Work/School Release Medical Decision Making - Landry Inquiry Pt receiving controlled substance: No [place]ry was queried for this patient: No Vital Signs: 11/13/21 12:10 Temperature 98.8 F Temperature Source Oral Pulse Rate [Right Brachial] 84 Respiratory Rate 19 Blood Pressure [Right Arm] 129/75 Blood Pressure Mean [Right Arm] 93 Blood Pressure Source [Right Arm] Automatic Cuff Blood Pressure Position [Right Arm] Sitting 02 Sat by Pulse Oximetry 96 Oxygen Delivery Method Room Air Orders (Tests/Meds): ORDERS Category Date Time Status Covid-19 Nasal PCR ([facility]) Routine Lab 11/13/21 12:15 Received [facility] HPI - General Stated complaint: covid test Time Seen by Provider: 11/13/21 12:34 Mode of Arrival: Ambulatory Source of Information: Patient Limitations: No Limitations Description of Symptoms (Recalled from Triage Doc. by RN): PATIENT REQUESTING COVID TEST D/T EXPOSURE. C/O FEVER HEENT Symptoms (Recalled from RN notes): No Resp Symptoms (Recalled from RN notes): No Skin Symptoms (Recalled from RN notes): No MS Symptoms (Recalled from RN notes): No Functional Status (Recalled from RN notes): WNL - History of Present Illness Provider Complaint: Patient states that his and daughter recently tested positive for COVID now he has started having nasal congestion and fever so he wanted to come in and get tested - Related Data Home Medications Medication Instructions Recorded Confirmed aspirin 81 mg tablet,delayed 81 mg PO DAILY 07/15/18 11/06/21 release morphine 15 mg tablet,extended 15 mg PO Q12H 07/15/18 11/06/21 release naproxen 500 mg tablet 500 mg PO BID 07/15/18 11/06/21 ranitidine HCl 150 mg tablet 150 mg PO DAILY 07/15/18 11/06/21 omeprazole 40 mg capsule,delayed 40 mg PO DAILY 10/23/20 11/06/21 release gabapentin 400 mg capsule 800 mg PO BID cap 10/22/21 11/06/21 loratadine 10 mg tablet 10 mg PO DAILY PRN tab 10/22/21 11/06/21 Rosuvastatin Calcium 20 mg PO DAILY 10/23/21 11/06/21 benazepril 20 mg tablet 10 mg PO DAILY tab 11/06/21 0
[2021-11-13 12:40] VITALS: BP 129/75; PULSE 84; RESP 19; TEMP 37.1; O2SAT 96
== END 2021-11-13 12:44 | disposition home or self-care (01) ==
PROVIDERS: Emergency Provider Nurse Practitioner; PCP Family Medicine
DX: U07.1 COVID-19 (principal)
CPT/HCPCS: 99212; C9803; G0463; U0003; U0005

== ENCOUNTER 2022-01-21 12:47 | Outpatient (RCR) | payer MEDICARE, SELFPAY | END 2022-01-21 23:59 | disposition home or self-care (01) | LOC: PT 12:47 | PROVIDERS: Visit Provider Thoracic Surgery (Cardiothoracic Vascular Surgery) | DX: I25.10 Atherosclerotic heart disease of native coronary artery without angina pectoris (principal); Z95.1 Presence of aortocoronary bypass graft ==

== ENCOUNTER → 2022-04-17 13:03 | Outpatient (CLI) | payer MEDICARE, MEDICAID, SELFPAY ==
--- NOTE | 2022-04-17 13:07 | CT_ITS ---
FINAL REPORT CLINICAL HISTORY: H/O NICOTINE DEPENDENCE FINDINGS: Low-Dose Chest CT Axial images were obtained from the lung apex to the mid abdomen by computed tomography. Low-dose protocol was utilized. CTDI vol (mGy): 2.90 DLP (mGy-cm): 105.77 Multiple median sternotomy wires are present. There is no axillary adenopathy. There is no hilar or mediastinal adenopathy. The heart is proper size. There is a right aortic arch in the descending thoracic aorta descends along the right side of the spine. There is no pericardial or pleural effusion. Lung window images demonstrate no suspicious infiltrate or nodule. Limited images of the upper abdomen are unremarkable. IMPRESSION: Lung RADS category 1. Recommend 12 month follow-up low-dose chest CT. Reviewed, Interpreted and Dictated by Andrés Castellanos MD Transcribed by Marti Hernandez Authenticated and [facility]
== END ==
PROVIDERS: PCP Family Medicine; Visit Provider Family Medicine
DX: Z87.891 Personal history of nicotine dependence (principal); Z12.2 Encounter for screening for malignant neoplasm of respiratory organs
CPT/HCPCS: 71271

== ENCOUNTER 2022-09-21 20:50 | Emergency (ER) | payer MEDICARE, MEDICAID, SELFPAY ==
[2022-09-21 21:00] VITALS: BP 110/76; PULSE 82; RESP 14; TEMP 36.7; O2SAT 96; BMI 37.4
--- NOTE | 2022-09-21 21:08 | CT_ITS ---
PROCEDURE INFORMATION: Exam: CT Right Lower Extremity With Contrast, Hip Exam date and time: 09/21/2022 9:48 PM Age: 62 years old Clinical indication: Other: Fever; Additional info: Fever, S/P hip repair x 4 weeks prior TECHNIQUE: Imaging protocol: CT of the right lower extremity with intravenous contrast was performed. Exam focused on the hip. Radiation optimization: All CT scans at this facility use at least one of these dose optimization techniques: automated exposure control; mA and/or kV adjustment per patient size (includes targeted exams where dose is matched to clinical indication); or iterative reconstruction. Contrast material: ISOVUE; Contrast volume: 75 ml; Contrast route: IV; REPORTING DATA: Count of CT and Cardiac NM exams in prior 12 months: This patient has received [address] and 0 known cardiac nuclear medicine studies in the 12 months prior to the current study. COMPARISON: CR XR HIP RT 2-3V W/PELVIS 10/23/2020 2:01 PM FINDINGS: Bones/joints: Right total hip arthroplasty. Soft tissues: No postsurgical abscess identified. IMPRESSION: No abscess identified.
[2022-09-21 21:20] LABS: Basophils # 0.1 K/mm3 (0-0.2); Basophils % 0.5 % (0.1-2.0); Eosinophils # 0.1 K/mm3 (0.0-0.4); Eosinophils % 1.2 % (0.1-12.0); Hematocrit 41.6 % (42.0-52.0); Hemoglobin 13.5 g/dL (14.1-18.0); Lymphocytes # 1.9 K/mm3 (0.7-4.5); Lymphocytes % 19.8 % (10-50); Mean Corpuscular HGB Conc 32.6 g/dL (31.8-35.4); Mean Corpuscular Hemoglobin 29.4 pg (27.0-31.2); Mean Corpuscular Volume 90.4 fl (80-94); Mean Platelet Volume 7.8 fl (7.4-10.4); Monocytes # 0.6 K/mm3 (0.1-1.0); Monocytes % 6.5 % (1.7-9.3); Neutrophils # 6.8 K/mm3 (1.8-7.8); Neutrophils % 72.1 % (37.0-80.0); Platelet Count 267 K/mm3 (142-424); Red Cell Distribution Width 13.8 % (11.5-17.5); White Blood Count 9.5 K/mm3 (4.8-10.8)
[2022-09-21 21:22] LABS: Chloride 100 mmol/L (98-107); Sodium 136 mmol/L (136-145)
[2022-09-21 21:23] LABS: Potassium 3.4 mmoL/L (3.5-5.1)
[2022-09-21 21:25] LABS: Alanine Aminotransferase 14 U/L (12-78); Albumin Level 3.7 g/dl (3.5-5.0); Albumin/Globulin Ratio 0.9 (1.1-1.8); Alkaline Phosphatase 88 U/L (38-126); Anion Gap 12.4 mEq/L (5-15); Aspartate Amino Transferase 20 U/L (17-59); Bilirubin,Total 0.6 mg/dl (0.2-1.3); Blood Urea Nitrogen 12 mg/dl (9-20); Carbon Dioxide 27 mmol/L (22.0-30.0); Creatinine Clearance Estimated 116 mL/min (50-200); Estimated Glomerular Filt Rate 62 ml/min (>60); GFR (African American) 75 ML/MIN (>60); Globulin 3.9 g/dL (1.3-3.2); Total Protein,Serum 7.6 g/dl (6.3-8.2)
[2022-09-21 21:26] LABS: Calcium 8.9 mg/dl (8.4-10.2); Glucose 173 mg/dl (74-100)
[2022-09-21 21:31] LABS: C-Reactive Protein 163.2 mg/L (0-4)
[2022-09-21 21:32] LABS: Lactic Acid 1.3 mmol/L (0.7-2.1)
--- NOTE | 2022-09-21 21:38 | HMH.EDFEV ---
Discharge Plan Disposition Patient Disposition: Home, Self-Care Prescriptions Prescriptions: New levofloxacin 500 mg tablet 500 mg PO DAILY Qty: 7 0RF No Action morphine 15 mg tablet extended release 15 mg PO Q12H aspirin [Aspir-81] 81 mg tablet,delayed release (DR/EC) 81 mg PO DAILY gabapentin 400 mg capsule 800 mg PO BID omeprazole 40 mg capsule,delayed release(DR/EC) 40 mg PO DAILY loratadine 10 mg tablet 10 mg PO DAILY PRN (Reason: allergies) Label Comments: TAKE ONE TABLET BY MOUTH EVERY DAY naproxen sodium [Aleve] 220 mg tablet 220 mg PO BID PRN (Reason: Pain) rosuvastatin 20 mg tablet 40 mg PO DAILY isosorbide mononitrate 30 mg tablet extended release 24 hr See Rx Instructions .ROUTE .COMPLEX Rx Instructions: TAKE ONE TABLET BY MOUTH EVERY DAY metoprolol succinate 25 mg tablet extended release 24 hr See Rx Instructions .ROUTE .COMPLEX Rx Instructions: TAKE 1 AND 1/2 TABLET BY MOUTH TWICE DAILY Referrals Follow up/Referrals: Ganesh Garcia MD [Primary Care Provider] - See instructions Clinical Impressions Clinical Impression: Acute febrile illness Instructions Patient Instructions: DI for Fever (Symptom) -- Adult Discharge ED Provider: Arjun (ED),Orion Jacobson Fever HPI General Chief Complaint: Fever Stated Complaint: fever,cough SOB Back&Knee Pain Time Seen by Provider: 09/21/22 21:38 Mode of Arrival: Family Vehicle Source of Information: Patient and Medical Record Limitations: No Limitations Description of Symptoms (Recalled from ER Triage Doc. by RN): 62 YO MALE PRESENTS WITH CC OF 'FEVER AT NIGHT ONLY X 2 NIGHTS'. PATIENT IS ALERT ORIENTED, DESCRIBES HAVING A TOTAL HIP REPLACEMENT 4 WEEKS AGO AT [facility] BY DR CONWAY. INCISION IS CLOSED WITH EDGES WELL APPROXIMATED, STERI STRIPS IN PLACE. DISTAL THIRD OF INCISION APPEARS TO BE SLIGHTLY REDDENED WITH SOME MILD EDEMA AND WARMTH TO TOUCH. PATIENT DENIES CHANGES IN PAIN. PATIENT DENIES COUGH/SOA/DYSPNEA. PATIENT DENIES CP. PATIENT DENIES N/V/D. STATES HAD 1ST BM IN 1 WEEK THIS MORNING. SOME KIDNEY PAIN ASSOCIATED WITH DYSURIA PRIOR TO BM. PT REVEALS NO ADDITIONAL SYMPTOMS AT THIS TIME. CONCERNED BECAUSE THE 'FEVER ONLY COMES ON AT NIGHT'. TREATING WITH OTC MEDICATIONS AND PRESCRIBED ANALGESICS. History of Present Illness HPI Narrative: fever over the last 2 days w/o dysuria or cough did have some back pain - had recent rt hip surg about 4 weeks ago - MD complaint: fever Onset (ago): day(s) Context: recent procedure Associated symptoms: denies other symptoms Related Data Home Medications Medication Instructions Recorded Confirmed aspirin 81 mg tablet,delayed 81 mg PO DAILY prevent 07/15/18 09/21/22 release (Aspir-) morphine 15 mg tablet,extended 15 mg PO Q12H Pain 07/15/18 09/21/22 release omeprazole 40 mg capsule,delayed 40 mg PO DAILY stomach 10/23/20 09/21/22 release gabapentin 400 mg capsule 800 mg PO BID Pain 10/22/21 09/21/22 loratadine 10 mg tablet 10 mg PO DAILY PRN allergies 10/22/21 09/21/22 rosuvastatin 20 mg tablet 40 mg PO DAILY Cholesterol 02/07/22 09/21/22 naproxen sodium 220 mg tablet 220 mg PO BID PRN Pain 05/16/22 09/21/22 (Aleve) isosorbide mononitrate 30 mg See Rx Instructions .Route 09/21/22 09/21/22 tablet,extended release 24 hr .COMPLEX CARDIAC metoprolol succinate 25 mg See Rx Instructions .Route 09/21/22 09/21/22 tablet,extended release 24 hr .COMPLEX CARDIAC Previous Rx's Medication Instructions Recorded levofloxacin 500 mg tablet 500 mg PO DAILY #7 tabs 09/22/22 Allergies Allergy/AdvReac Type Severity Reaction Status Date / Time No Known Allergies Allergy Verified 05/16/22 13:42 [facility] Disclaimer: The information contained in this section may have been updated after the patient was seen, as this information can be updated by other users. Medical History (Reviewed 05/16/22 @ 13:42 by
[2022-09-21 21:44] VITALS: BP 118/83; PULSE 94; RESP 18; O2SAT 94
[2022-09-21 22:10] LABS: Erythrocyte Sedimentation Rate 125 mm/hr (0-20)
[2022-09-21 22:20] VITALS: BP 105/71; PULSE 82; RESP 16; O2SAT 96
--- NOTE | 2022-09-21 22:38 | XR_ITS ---
PROCEDURE INFORMATION: Exam: XR Chest Exam date and time: 09/21/2022 11:28 PM Age: 62 years old Clinical indication: Fever TECHNIQUE: Imaging protocol: Radiologic exam of the chest. Views: 1 view. COMPARISON: CT LUNG SCREENING 04/17/2022 1:10 PM FINDINGS: Lungs: Unremarkable. No consolidation. Pleural spaces: Unremarkable. No pleural effusion. No pneumothorax. Heart/Mediastinum: Unremarkable. No cardiomegaly. Bones/joints: Median sternotomy. IMPRESSION: No acute cardiopulmonary findings.
--- NOTE | 2022-09-21 22:38 | CT_ITS ---
PROCEDURE INFORMATION: Exam: CT Abdomen And Pelvis Without Contrast Exam date and time: 09/21/2022 11:18 PM Age: 62 years old Clinical indication: Fever; Additional info: Abdominal pain TECHNIQUE: Imaging protocol: Computed tomography of the abdomen and pelvis without contrast. Radiation optimization: All CT scans at this facility use at least one of these dose optimization techniques: automated exposure control; mA and/or kV adjustment per patient size (includes targeted exams where dose is matched to clinical indication); or iterative reconstruction. REPORTING DATA: Count of CT and Cardiac NM exams in prior 12 months: This patient has received [address] and 0 known cardiac nuclear medicine studies in the 12 months prior to the current study. COMPARISON: CT HIP RT W CON 09/21/2022 9:48 PM FINDINGS: Tubes, catheters and devices: None noted. Lungs: Lung bases appear clear. Heart: CABG. No cardiomegaly. No significant pericardial effusion. Liver: Normal. No mass. Gallbladder and bile ducts: Normal. No calcified stones. No ductal dilation. Pancreas: Normal. No ductal dilation. Spleen: Normal. No splenomegaly. Adrenal glands: Normal. No mass. Kidneys and ureters: Normal. No hydronephrosis. Stomach and bowel: Unremarkable. No obstruction. No mucosal thickening. Appendix: No evidence of appendicitis. Intraperitoneal space: Unremarkable. No free air. No significant fluid collection. Retroperitoneal space: No significant retroperitoneal inflammatory changes are noted. Vasculature: Unremarkable. No abdominal aortic aneurysm. Lymph nodes: Unremarkable. No enlarged lymph nodes. Urinary bladder: Unremarkable as visualized. Reproductive: Unremarkable as visualized. Bones/joints: Right hip arthroplasty. No acute fracture. Soft tissues: Unremarkable. IMPRESSION: 1. No acute findings. 2. Right hip arthroplasty.
[2022-09-21 22:44] LABS: Coronavirus 19, PCR Not Detected (NotDetected); Influenza A, PCR Not Detected (NotDetected); Influenza B, PCR Not Detected (NotDetected)
[2022-09-21 22:46] LABS: Microscopic, Urine URINE MICROSCOPIC (MICROSCOPIC)
[2022-09-21 22:50] LABS: Procalcitonin 0.126 ng/mL (0.0-2.0)
[2022-09-21 22:57] LABS: Appearance,Urine CLEAR (Clear); Bilirubin,Urine Negative (Negative); Blood, Urine Negative (Negative); Color,Urine YELLOW (Yellow); Glucose,Urine (UA) Negative (Negative); Ketones,Urine Negative (Negative); Leukocyte Esterase,Urine Negative (Negative); Nitrate,Urine Negative (Negative); Protein,Urine Negative (Negative); Specific Gravity, Urine 1.015 (1.005-1.030)
[2022-09-21 23:11] LABS: Squamous Epithelial Cell,Urine Occasional #/hpf (0-5)
[2022-09-22 00:10] VITALS: BP 142/78; PULSE 72; RESP 19; TEMP 36.8; O2SAT 98
== END 2022-09-22 00:26 | disposition home or self-care (01) ==
PROVIDERS: Emergency Provider Emergency Medicine; PCP Family Medicine
DX: R50.9 Fever, unspecified (principal); R30.0 Dysuria; R06.02 Shortness of breath
CPT/HCPCS: 71045; 73701; 74176; 80053; 81001; 83605; 84145; 85025; 85651; 86140; 87040; 96365; 99284; 99285; C9803; J0696; Q9967; U0003; U0005

== ENCOUNTER 2022-10-22 14:00 | Outpatient (RCR) | payer MEDICARE, MEDICAID, SELFPAY | END 2022-10-22 14:05 | disposition home or self-care (01) | LOC: PT 14:00 | PROVIDERS: Visit Provider Orthopaedic Surgery | DX: M25.551 Pain in right hip (principal); Z96.641 Presence of right artificial hip joint | CPT/HCPCS: 97110; 97163; 97530 ==

== ENCOUNTER 2023-01-20 09:05 | Emergency (ER) | payer MEDICARE, SELFPAY ==
[2023-01-20 09:10] VITALS: BP 151/83; PULSE 78; RESP 20; TEMP 36.7; O2SAT 97; BMI 37.4
[2023-01-20 09:33] VITALS: BP 151/83; PULSE 78; RESP 20; TEMP 36.7; O2SAT 97
--- NOTE | 2023-01-20 09:35 | EXP.UTC ---
Discharge Plan Disposition Patient Disposition: Home, Self-Care Condition: Good Prescriptions Prescriptions: New albuterol sulfate [Ventolin HFA] 90 mcg/actuation HFA aerosol inhaler 2 puff inhalation Q6H PRN (Reason: shortness of breath or wheezing) Qty: 6.7 0RF benzonatate [benzonatate] 100 mg capsule 100 mg PO TIDP PRN (Reason: Cough) Qty: 30 0RF azithromycin [Zithromax] 250 mg tablet 250 mg PO UD DOSE PK Qty: 6 0RF Rx Instructions: Take two (2) tablets today, then one (1) tablet days #2 thru #5 Paxlovid 300 mg (150 mg x 2)-100 mg tablets,dose pack See Rx Instructions .ROUTE .COMPLEX Qty: 30 0RF Rx Instructions: take TWO 150 mg tablets of nirmatrelvir with ONE 100 mg tablet of ritonavir twice daily for 5 days prednisone [prednisone] 20 mg tablet 20 mg PO BID 4 Days Qty: 8 0RF No Action morphine 15 mg tablet extended release 15 mg PO Q12H aspirin [Aspir-81] 81 mg tablet,delayed release (DR/EC) 81 mg PO DAILY gabapentin 400 mg capsule 800 mg PO BID omeprazole 40 mg capsule,delayed release(DR/EC) 40 mg PO DAILY loratadine 10 mg tablet 10 mg PO DAILY PRN (Reason: allergies) Patient Comments: TAKE ONE TABLET BY MOUTH EVERY DAY naproxen sodium [Aleve] 220 mg tablet 220 mg PO BID PRN (Reason: Pain) ropinirole 0.5 mg tablet 0.5 mg PO HS rosuvastatin 20 mg tablet 40 mg PO DAILY isosorbide mononitrate 30 mg tablet extended release 24 hr See Rx Instructions .ROUTE .COMPLEX Rx Instructions: TAKE ONE TABLET BY MOUTH EVERY DAY levofloxacin 500 mg tablet 500 mg PO DAILY Qty: 7 0RF metoprolol succinate 50 mg tablet extended release 24 hr 50 mg PO BID Referrals Follow up/Referrals: Ganesh Garcia MD [Primary Care Provider] - See instructions Activity Restrictions/Add. Instructions Additional Instructions/Restrictions: Drink plenty of fluids. Take tylenol or ibuprofen for pain or fever. Take the medications as directed. Follow up with your regular doctor. GO TO THE ER FOR ANY WORSENING SYMPTOMS Clinical Impressions Clinical Impression: COVID-19, Acute viral syndrome Instructions Patient Instructions: Coronavirus Disease 2019, Preventing the Spread of Coronavirus Discharge Instructions Discharge ED Provider: Cristóbal Clarke [facility] HPI General Stated complaint: stuffiness, cough Mode of Arrival: Ambulatory Source of Information: Patient Limitations: No Limitations Time Seen by Provider: 01/20/23 09:35 Description of Symptoms (Recalled from Triage Doc. by RN): PATIENT C/O COUGH, CONGESTION AND SINUS PRESSURE. HE REPORTS 2 POSITIVE AT HOME COVID TEST HEENT Symptoms (Recalled from RN notes): Yes Resp Symptoms (Recalled from RN notes): Yes Skin Symptoms (Recalled from RN notes): No MS Symptoms (Recalled from RN notes): No Functional Status (Recalled from RN notes): WNL History of Present Illness Provider Complaint: He states that for the past 2 days he has felt bad. He has had sinus congestion, scratchy sore throat, fever, nonproductive cough, body aches, and nausea/diarrhea. He took 2 home covid-19 tests at home and they were both positive this morning. He came in to have a pcr test to confirm this. Related Data Home Medications Medication Instructions Recorded Confirmed aspirin 81 mg tablet,delayed 81 mg PO DAILY prevent 07/15/18 01/20/23 release (Aspir-) morphine 15 mg tablet,extended 15 mg PO Q12H Pain 07/15/18 01/20/23 release omeprazole 40 mg capsule,delayed 40 mg PO DAILY GERD 10/23/20 01/20/23 release gabapentin 400 mg capsule 800 mg PO BID Pain 10/22/21 01/20/23 loratadine 10 mg tablet 10 mg PO DAILY PRN allergies 10/22/21 12/29/22 rosuvastatin 20 mg tablet 40 mg PO DAILY Cholesterol 02/07/22 12/29/22 naproxen sodium 220 mg tablet 220 mg PO BID PRN Pain 05/16/22 01/20/23 (Aleve) isosorbide mononitrate 30 mg See Rx Instructions .Route 09/21/22 12/29/22 t
== END 2023-01-20 09:49 | disposition home or self-care (01) ==
PROVIDERS: Emergency Provider Nurse Practitioner Family; PCP Family Medicine
DX: U07.1 COVID-19 (principal); R50.9 Fever, unspecified; R19.7 Diarrhea, unspecified; R11.0 Nausea; K21.9 Gastro-esophageal reflux disease without esophagitis; F17.200 Nicotine dependence, unspecified, uncomplicated
CPT/HCPCS: 99212; 99214; G0463

== ENCOUNTER 2023-07-01 14:12 | Outpatient (CLI) | payer MEDICARE, SELFPAY ==
[2023-07-01 14:34] LABS: Basophils # 0.1 K/mm3 (0-0.2); Basophils % 1.1 % (0.1-2.0); Eosinophils # 0.2 K/mm3 (0.0-0.4); Hematocrit 48.9 % (42.0-52.0); Hemoglobin 16.7 g/dL (14.1-18.0); Lymphocytes % 36.2 % (10-50); Mean Corpuscular HGB Conc 34.3 g/dL (31.8-35.4); Mean Corpuscular Hemoglobin 31.3 pg (27.0-31.2); Mean Corpuscular Volume 91.2 fl (80-94); Mean Platelet Volume 7.7 fl (7.4-10.4); Monocytes # 0.5 K/mm3 (0.1-1.0); Monocytes % 5.5 % (1.7-9.3); Neutrophils # 4.6 K/mm3 (1.8-7.8); Neutrophils % 55.3 % (37.0-80.0); Platelet Count 171 K/mm3 (142-424); Red Blood Count 5.36 M/mm3 (4.60-6.20); Red Cell Distribution Width 13.7 % (11.5-17.5); White Blood Count 8.3 K/mm3 (4.8-10.8)
[2023-07-01 15:08] LABS: Alanine Aminotransferase 23 U/L (12-78); Albumin Level 4.2 g/dl (3.5-5.0); Alkaline Phosphatase 84 U/L (38-126); Anion Gap 11.9 mEq/L (5-15); Aspartate Amino Transferase 34 U/L (17-59); Bilirubin,Direct 0.3 mg/dl (0.0-0.4); Bilirubin,Indirect 0.3 mg/dL (0.0-0.9); Bilirubin,Total 0.6 mg/dl (0.2-1.3); Bilirubin,Unconjugated 0.3 mg/dL (0.0-1.1); Blood Urea Nitrogen 17 mg/dl (9-20); Calcium 9.3 mg/dl (8.4-10.2); Carbon Dioxide 25 mmol/L (22.0-30.0); Chloride 107 mmol/L (98-107); Chol/HDL Ratio 4.2 (1-3.5); Cholesterol 97 mg/dl (140-200); Estimated Glomerular Filt Rate 48 ml/min (>60); GFR (African American) 58 ML/MIN (>60); Glucose 97 mg/dl (74-100); HDL Cholesterol 23 mg/dl (40-60); Magnesium 2.3 mg/dl (1.6-2.3); Potassium 4.9 mmoL/L (3.5-5.1); Sodium 139 mmol/L (136-145); Total Protein,Serum 7.1 g/dl (6.3-8.2); Triglycerides 226 mg/dl (30-150); VLDL Cholesterol 45 mg/dL (0-40)
[2023-07-01 15:19] LABS: Direct LDL Cholesterol 52.05 mg/dL (100-129)
[2023-07-01 15:25] LABS: Free T4 (Free Thyroxine) 0.94 ng/dl (0.78-2.19)
== END 2023-07-01 23:59 ==
LOC: LAB 14:12
PROVIDERS: PCP Family Medicine; Visit Provider Internal Medicine
DX: E78.5 Hyperlipidemia, unspecified (principal); F17.200 Nicotine dependence, unspecified, uncomplicated; I10 Essential (primary) hypertension; I25.10 Atherosclerotic heart disease of native coronary artery without angina pectoris
CPT/HCPCS: 36415; 80048; 80061; 80076; 83735; 84439; 84443; 85025

== ENCOUNTER 2024-09-01 14:03 | Outpatient (CLI) | payer MEDICARE, MEDICAID, SELFPAY ==
--- NOTE | 2024-09-01 14:08 | CT_ITS ---
FINAL REPORT CLINICAL HISTORY: SCREENING CURRENT SMOKER 1 PPD X 45 YEARS COMPARISON: 04/17/2022 FINDINGS: CT CHEST LOW DOSE SCREENING HISTORY: Screening exam for lung cancer. 64-year-old male, current smoker, 16-hcna-imxr history. DOSE: CTDI vol: 2.9 mGy, DLP: 109.42 mGy*cm TECHNIQUE: Axial CT without IV contrast administration using low dose protocol. This study was performed with techniques to keep radiation doses as low as reasonably achievable, (ALARA). Individualized dose reduction techniques using automated exposure control or adjustment of mA and/or kV according to the patient's size were employed. No acute lung disease is present. No pulmonary lesions are seen suspicious for neoplasm. No pleural or pericardial effusion is seen. No adenopathy or mass lesion is present. A right aortic arch is noted, a normal vascular variant. IMPRESSION: No evidence of lung cancer LUNG RADS CATEGORY 1 RECOMMENDATION: 12 month LDCT follow up Reviewed, Interpreted and Dictated by Kaelyn Saha MD Transcribed by Hamida Hernandez Authenticated and [facility]
== END 2024-09-01 23:59 | disposition home or self-care (01) ==
LOC: RAD 14:04
PROVIDERS: PCP Family Medicine; Visit Provider Family Medicine
DX: Z87.891 Personal history of nicotine dependence (principal)
CPT/HCPCS: 71271

== ENCOUNTER 2025-05-16 11:28 | Emergency (ER) | payer MEDICARE, MEDICAID, SELFPAY ==
--- OUTSIDE RECORDS SUMMARY | 2024-02-09 08:45 | XMS_ITS ---
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 Name Role Phone Imani Garcia Primary Care Provider [phone] REASON FOR VISIT 2 months Encounters Encounter Location Date Provider Diagnosis [facility] [address] [place] [id number] 02/09/2024 Imani Garcia Plan Of Treatment Next Appt Details Provider Name:Imani Beaulieu, 06/06/2025 11:30:00 AM, [address], [address], [place], [place], [phone], Provider Name:Imani Beaulieu, 10/03/2025 11:45:00 AM, [address], [address], [place], [place], [id number], Progress Notes * GOMEZHuber SHIOB:1960 ( 65 yo M)Acc No.[id number]:02/09/2024 Progress Notes Patient: Brian BRANDON Provider: Imani Garcia M.D. :1960 A ge:63 Y S ex:Male Date:02/09/2024 [address], [phone] Subjective: * Chief Complaints: * 1 . 2 months. * Medical History: Objective: * Vitals: Assessment: Plan: * Treatment: * Images: Billing Information: * Visit Code: * Procedure Codes: * Electronic signature of Imani Garcia MD on 05/16/2025 at 11:46 AM EST Sign off status: Pending * Provider: Imani Garcia M.D. Date: 0 02/09/2024 Generated for Mary hinds/Natalie/Taraitting on: 1 07/17/2024 11:46 AM EST
--- OUTSIDE RECORDS SUMMARY | 2024-04-07 06:00 | XMS_ITS ---
Author Organization [facility] Address [address] [place] [id number] Care Team Providers Care Adventure Challenge Instructor Name Role Phone Imani Garcia Primary Care Provider Allergies Allergen (clinical drug ingredient) Drug/Non Drug [...] Encounter Location Date Provider Diagnosis Susanna 12[address] [facility] 36 [facility] [address] [place], [place] [id number] 04/07/2024 Imani Garcia RLS (restless legs syndrome) [...] Name:Imani Beaulieu, 06/06/2025 11:30:00 AM, [address] [facility] 36 [facility], [address], [place], [place], [id number], Provider Name:Imani Beaulieu, 10/03/2025 11:45:00 AM, [address], [address], [place], [id number], Progress Notes * Huber DYEROB:1960 ( 65 yo M)Acc No.[id number]:04/07/2024 Progress Notes Patient: Brian BRANDON Provider: Imani Garcia M.D. :1960 A ge:63 Y S ex:Male Date:04/07/2024 Address:[address] [place] [address] [address], [place] [facility] Subjective: * Chief Complaints: * 1 . [...] stic Procedure: h igh blood pressure 2002, [facility] ER-bells palsy 11/2012. * Family History: [...] * Images: Billing Information: * Visit Code: 09619 Office Visit, Est Pt., Level 3. * Procedure Codes: 25301 PULSE OX. * Electronic signature of Imani Garcia MD on 05/16/2025 at 11:45 AM EST Sign off status: Pending * Provider: Imani Garcia M.D. Date: 06/07/2023 Generated for Mary hinds/Natalie/Jose on: 07/17/2024 11:45 AM EST History and Physical Notes * HPI (History of Present Illness) Category Sub-Category Detail Notes Category Not es HPI Patient is here today for a 2 mo [facility] check up. Pt declines flu vaccine. Pt [...]
--- OUTSIDE RECORDS SUMMARY | 2024-06-02 05:15 | XMS_ITS ---
Author Organization [facility] Address [address] [place] [id number] Care Team Providers Care Cold Header Name Role Phone Imani Garcia Primary Care Provider [phone] Allergies Allergen (clinical drug ingredient) Drug/Non Drug [...] Encounters Encounter Location Date Provider Diagnosis Susanna [address] [place] [address] 36 [facility] [address] [place], [place] [id number] 06/02/2024 Imani Garcia RLS (restless legs syndrome) [...] Reason: Provider Name:Imani Beaulieu, 06/06/2025 11:30:00 AM, [address] [place] [address] 36 [facility], [facility] [address], [place], [id number], Provider Name:Imani Beaulieu, 10/03/2025 11:45:00 AM, [address] [place] [address] [address], [place], [place], [id number], Progress Notes * Huber DYEROB:1960 ( 65 yo M)Acc No.[id number]:06/02/2024 Progress Notes Patient: Brian BRANDON Provider: Imani Garcia M.D. :1960 A ge:64 Y S ex:Male Date:06/02/2024 Address:[address] [place] [address], [place], [id number] Subjective: * Chief Complaints: * 1 . [...] stic Procedure: h igh blood pressure 2002, [facility] ER-bells palsy 11/2012. * Family History: [...] * Images: Billing Information: * Visit Code: 47019 Office Visit, Est Pt., Level 3. * Procedure Codes: * Electronic signature of Imani Garcia MD on 05/16/2025 at 11:46 AM EST Sign off status: Pending * Provider: Imani Garcia M.D. Date: 0 06/02/2024 Generated for Mary hinds/Natalie/Daniellesmitting on: 1 07/17/2024 11:46 AM EST History and Physical Notes * [...]
--- OUTSIDE RECORDS SUMMARY | 2024-08-02 05:00 | XMS_ITS ---
Author Organization [facility] Address [address] [place] [phone] Care Team Providers Care Laboratory Secretary Name Role Phone Imani Garcia Primary Care Provider [phone] Allergies Allergen (clinical drug ingredient) Drug/Non Drug Allergy documented on EMR Reaction Allergy Type Onset Date Status ibuprofen Ibuprofen Unknown Drug Allergy Active pantoprazole Protonix Unknown Drug Allergy Acti ve Results Component Value Reference Range Notes CT SCAN : CHEST, LUNG CANCER SCREENING LOW DOSE Reviewed date:10/04/2024 11:44:32 PM Interpretation:no evidence of lung cancer, annual f/u Performing Lab: Notes/Report: no evidence of lung cancer, annual f/u REASON FOR VISIT 2 month follow up, Needs labs, low dose chest CT, & shingles vaccine Medications Medication SIG (Take, Route, Frequency, Duration) Notes Start Date End Date Status Aspirin 325 MG 2 tabs orally once a day Active Naproxen 500 mg TAKE ONE TABLET BY M OUTH TWICE DAILY --TAKE WITH FOOD--; Duration: 90 days Active Rosuvastatin Calcium 40 MG 1 tab(s) oral ly once a day; Duration: 90 days Active HYDROcodone Bitartrate ER 15 MG 1 capsule Orally Two times a day 07/27/2024 Active rOPINIRole HCl 1 MG 1 tablet Orally At B ed Time Active Omeprazole 40 MG 1 cap(s) orally once a day; Duration: 90 days Active Gabapentin 800 MG 1 tab(s) orally 2 ti mes a day; Duration: 30 day(s) 04/07/2024 Active Metoprolol Tartrate 50 MG 1 tab(s) Orall y 2 times a day Active Ezetimibe 10 MG 1 tablet Orally Once a day; Duration: 30 day(s) Active Isosorbide Mononitrate ER 30 MG 1 tab(s) orally once a day (in the morning) Active Problems Problem Type SNOMED Code ICD Code Onset Dates Problem Status W/U Status Risk Notes Problem Tobacco use (297558065) Tobacco use disorder (F17.200) Active confirmed Vital Signs Blood pressure systolic 138 mm Hg 08/03/19 25 Blood pressure diastolic 78 mm Hg 025 Heart Rate 73 /min 08/02/2024 Height 70 in 08/02/2024 Weight 279.2 lbs 08/02/2024 BMI 40.06 kg/m2 08/02/2024 Encounters Encounter Location Date Provider Diagnosis [place] [address] [facility] [address] [place] [phone] 08/02/2024 Imani Garcia RLS (restless legs syndrome) G25.81 ; Chronic pain syndrome G89.4 ; HTN (hypertension) I10 ; Dyslipidemia E78.5 ; 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 ; 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.9 and Tobacco use disorder F17.200 Assessments Encounter Date Diagnosis (ICD Code) Assessment Notes Treatment Notes Treatment Clinical Notes Section Notes 08/02/2024 RLS (restless legs syndrome) (ICD-10 - G25.81) 08/02/2024 Chronic pain syndrome (ICD-10 - G89.4) 08/02/2024 HTN (hypertension) (ICD-10 - I10) 08/02/2024 Dyslipidemia (ICD-10 - E78.5) 08/02/2024 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) 08/02/2024 DJD (degenerative joint disease) of knee (ICD-10 - M17.9) 08/02/2024 Tobacco use disorder (ICD-10 - F17.200) Plan Of Treatment Medication Medication Name Sig Start Date Stop Date Notes HYDROcodone Bitartrate ER 15 MG 1 capsul e Orally Two times a day 07/27/2024 rOPINIRole HCl 1 MG 1 tablet Orally At Bed Time Next Appt Details Follow Up: 2 Months, Reason: Provider Name:Imani Beaulieu, 06/06/2025 11:30:00 AM, [address], [address], [place], [id number], Provider Name:Imani Maza jacob, 10/03/2025 11:45:00 AM, [address] [facility] [address], [address], [place], [id number], Progress Notes * [place]er DYEROB:1960 ( 65 yo M)Acc No.[id number]:08/02/2024 Progress Notes Patient: Brian BRANDON Provider: Imani Garcia M.D. :1960 A ge:64 Y S ex:Male Date:08/02/2024 Address:[address] [place] [address] [address], [id number] Subjective: * Chief Complaints: * 1 . 2 month follow up. 2. Needs labs, low dose chest CT, & shingles vaccine. * HPI: R heumatology: He returns for follow-up on his chronic pain localized mostly around his right knee, thigh, and into his hip. Pharmacy has been unable to fill his extended release morphine and he was switched to extended release hydrocodone but states it has not been helping at all. He has only been taking this once a day. E NT/respiratory: He continues to smoke with no desire to quit. He denies increased shortness of breath, productive cough, or hemoptysis. He is due for low-dose lung scan. N eurology: He is not sleeping well at night partly because of pain but also notes that his restless legs symptoms have been worse. * ROS: D ERMATOLOGY: no R jesus. [...] stic Procedure: h igh blood pressure 2002, [facility] ER-bells palsy 11/2012. * Family History: F [...] cap(s) orally once a day , Taking Ezetimibe 10 MG Tablet 1 [...] TWICE DAILY --TAKE WITH FOOD-- , Taking rOPINIRole HCl 0.5 mg Tablet take one tablet by mouth every day at bedtime , Not-Taking HYDROcodone Bitartrate ER 15 MG Capsule Extended Release 12 Hour 1 capsule Orally Once a day , Medication List reviewed and reconciled with the patient * Allergies: P rotonix, Ibuprofen. Objective: * Vitals: W t:279.2, Temp:97.9, BP:138/78, HR:73, O2 Sat:100% on RA, Nurse:carlyn, Ht: 70, BMI:40.06. * Examination: G eneral Examination: General Appearance: N AD at rest. N jessica: s upple, no lymphadenopathy, no carotid bruits. H eart: R SR. L ungs: C oarse breath sounds with occasional rhonchi. E xtremities: M ild swelling around the right knee. Ambultes with a limp. Assessment: * Assessment: 1. R LS (restless legs syndrome) - G25.81 (Primary) 2 . C hronic pain syndrome - G89.4 3 . H TN (hypertension) - I10 4 . D yslipidemia - E78.5 5 . C ongenital dislocation of right hip - Q65.01 6 . DJD (degenerative joint disease) of knee - M17.9 7 . T obacco use disorder - F17.200 Plan: * Treatment: 2. C hronic pain syndrome Increase HYDROcodone Bitartrate ER Capsule Extended Release 12 Hour, 15 MG, 1 capsule, Orally, Two times a day, Refills 0. 3. T obacco use disorder I maging: CT SCAN : CHEST, LUNG CANCER SCREENING LOW DOSE (Performed Date - 09/01/2024) n o evidence of lung cancer, annual f/u * Procedure Codes: 3 075F SYST BP GE 130 - 139MM HG, 3078F DIAST BP < 80 MM HG * Follow Up: 2 Months * Images: Billing Information: * Visit Code: 30644 Office Visit, Est Pt., Level 3. * Procedure Codes: 3075F SYST BP GE 130 - 139MM HG. 3078F DIAST BP < 80 MM HG. * Electronic signature of Imani Garcia MD on 05/16/2025 at 11:44 AM EST Sign off status: Pending * Provider: Imani Garcia M.D. Date: 0 08/02/2024 Generated for Mary hinds/Natalie/Jose on: 1 07/17/2024 11:44 AM EST History and Physical Notes * Examination Category Sub-Category Detail Notes Category Not es General Examination Heart: RSR Lungs: Coarse breath sounds with occasional rhonchi Extremities: Mild swelling around the right knee. Ambultes with a limp General Appearance: NAD at rest Neck: supple, no lymphaden opathy, no carotid bruits
--- OUTSIDE RECORDS SUMMARY | 2024-10-04 04:15 | XMS_ITS ---
Author Organization [facility] Address [address] [place] [id number] Care Team Providers Care Email Engineer Name Role Phone Imani Garcia Primary Care [...] Status Risk Notes Problem Gastroesophageal reflux disease (729065428) GERD (gastroesop hageal reflux disease) (K21.9) Active confirmed Problem Body mass index 40+ - morbidly obese (383449410) BMI 40.0-44.9, adult (Z68.41) Active confirmed Problem Morbid obesity (287332514) Morbid obesity (E66.01) Active confirmed Vital Signs Blood pressure systolic 124 mm Hg 10/05/19 25 Blood pressure diastolic 70 mm Hg 025 Heart Rate 60 /min 10/04/2024 Height 70 in 10/04/2024 Weight 281.6 lbs 10/04/2024 BMI 40.4 kg/m2 10/04/2024 Encounters Encounter Location Date Provider Diagnosis [facility] [address] [facility] [address] [place], [place] [address], [place] [phone] 10/04/2024 Imani Garcia Chronic pain syndrom e [...] Provider Name:Imani Beaulieu, 06/06/2025 11:30:00 AM, [address] [facility] [address] [facility] [place], [address], [place], [id number], Provider Name:Imani Beaulieu, 10/03/2025 11:45:00 AM, [address] [place] [address], [address], [place], [id number], Progress Notes * GOMEZ GauravMatheusOB:1960 ( 65 yo M)Acc No.[id number]:10/04/2024 Progress Notes Patient: Brian BRANDON Provider: Imani Garcai M.D. :1960 A ge:64 Y S ex:Male Date:10/04/2024 Address:[address] [place] [address], [place] [id number] Subjective: * Chief Complaints: * 1 . [...] stic Procedure: h igh blood pressure 2002, [facility] ER-bells palsy 11/2012. * Family [...] reflux disease) - K21.9 1 0. B DE 40.0-44.9, adult - Z68.41 1 1. M [...] * Images: Billing Information: * Visit Code: 90897 Office Visit, Est Pt., Level 3. * Procedure Codes: G2211 Complex e/m visit add on. 3074F SYST BP LT 130 MM HG. 3078F DIAST BP < 80 MM HG. * Electronic signature of Imani Garcia MD on 05/16/2025 at 11:45 AM EST Sign off status: Pending * Provider: Imani Garcia M.D. Date: 0 10/04/2024 Generated for Mary hinds/Natalie/Jose on: 1 07/17/2024 11:45 AM EST History and Physical [...]
--- OUTSIDE RECORDS SUMMARY | 2024-12-01 06:00 | XMS_ITS ---
Author Organization [facility] Address [address] [place] [id number] Care Team Providers Care Forester Silviculture Name Role Phone Imani Garcia Primary Care [...] Encounters Encounter Location Date Provider Diagnosis [facility] [address] [place] [address] [address] [place] [id number] 12/01/2024 Imani Garcia Chronic pain syndrom e [...] Reason: Provider Name:Imani Beaulieu, 06/06/2025 11:30:00 AM, [address] [place] [address], [address], [place], [id number], Provider Name:Imani Beaulieu, 10/03/2025 11:45:00 AM, [address] [place] [address], [facility] [address], [place], [id number], Progress Notes * Huber DYEROB:1960 ( 65 yo M)Acc No.[id number]:12/01/2024 Progress Notes Patient: Brian BRANDON Provider: Imani Garcia M.D. :1960 A ge:64 Y S ex:Male Date:12/01/2024 Address:[facility], [place] Subjective: * Chief Complaints: * 1 . [...] stic Procedure: h igh blood pressure 2002, [facility] ER-bells palsy 11/2012. * Family History: [...] * Images: Billing Information: * Visit Code: 49026 Office Visit, Est Pt., Level 3. * Procedure Codes: * Electronic signature of Imani Garcia MD on 05/16/2025 at 11:46 AM EST Sign off status: Pending * Provider: Imani Garcia M.D. Date: 0 12/01/2024 Generated for Mary hinds/Natalie/Taraitting on: 1 07/17/2024 11:46 AM EST History [...]
--- OUTSIDE RECORDS SUMMARY | 2025-02-02 05:15 | XMS_ITS ---
Author Organization [facility] Address [address] [facility] [facility] [address] [place] [id number] Care Team Providers Care Floor Hand Name Role Phone Imani Garcia Primary Care [...] Provider Diagnosis [facility] [address] [facility] [address] [place] [id number] 02/02/2025 Imani Garcia Plan Of Treatment Next Appt Details Provider Name:Imani Beaulieu, 06/06/2025 11:30:00 AM, [address] [address] [facility], [address], [place], [id number], Provider Name:Imani Beaulieu, 10/03/2025 11:45:00 AM, [address] [facility], [address], [place], [id number], Progress Notes * Huber DYEROB:1960 ( 65 yo M)Acc No.[id number]:02/02/2025 Progress Notes Patient: Brian BRANDON Provider: Imani Garcia M.D. :1960 A ge:64 Y S ex:Male Date:02/02/2025 Address:[address], [place] Subjective: * Chief Complaints: * 1 . [...] h igh blood pressure 2002, [facility] ER-bells palsy 11/2012. * Family History: [...] 02/02/2025 Generated for Mary hinds/Natalie/Taraitting on: 1 07/17/2024 11:44 AM EST History and Physical Notes * HPI (History of Present Illness) Category Sub-Category Detail Notes Category Not es HPI Patient is here today for Pt is here today for a check up and fasting labs. Pt sts he is doing well and has no concerns at this time
--- OUTSIDE RECORDS SUMMARY | 2025-02-02 05:15 | XMS_ITS ---
Author Organization [facility] Address [address] [place] [id number] Care Team Providers Care Plywood Matcher Name Role Phone Imani Garcia Primary Care Provider [phone] Allergies Allergen (clinical drug ingredient) Drug/Non Drug Allergy documented on EMR Reaction Allergy Type Onset Date Status ibuprofen Ibuprofen Unknown Drug Allergy Active pantoprazole Protonix Unknown Drug Allergy Acti ve REASON FOR VISIT 2 months WORKERS COMP Medications Medication SIG (Take, Route, Frequency, Duration) Notes Start Date End Date Status Omeprazole 40 MG 1 cap(s) orally once a day; Duration: 90 days Active Gabapentin 800 MG 1 tab(s) orally 2 ti mes a day Active Rosuvastatin Calcium 40 mg TAKE ONE TABL ET BY MOUTH EVERY DAY; Duration: 90 Active MS Contin 15 MG 1 tab(s) orally Two times a day Active rOPINIRole HCl 1 MG 1 tablet Orally At B ed Time; Duration: 90 days Active Ezetimibe 10 MG 1 tablet Orally Once a day; Duration: 30 day(s) Active Naproxen 500 mg TAKE ONE TABLET BY M OUTH TWICE DAILY - TAKE WITH FOOD-; Duration: 90 Active Aspirin 81 MG 1 tablet orally once a day Active Isosorbide Mononitrate ER 30 MG 1 tab(s) orally once a day (in the morning) Active Metoprolol Tartrate 50 MG 1 tab(s) Orall y 2 times a day Active Vital Signs Blood pressure systolic 130 mm Hg 02/03/20 25 Blood pressure diastolic 74 mm Hg 025 Heart Rate 59 /min 02/02/2025 Height 70 in 02/02/2025 Weight 270.6 lbs 02/02/2025 BMI 38.82 kg/m2 02/02/2025 Encounters Encounter Location Date Provider Diagnosis [facility] [address] [place] [address] [address] [place] [id number] 02/02/2025 Imani Garcia Chronic pain syndrom e G89.4 ; 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 and 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.9 Assessments Encounter Date Diagnosis (ICD Code) Assessment Notes Treatment Notes Treatment Clinical Notes Section Notes 02/02/2025 Chronic pain syndrome (ICD-10 - G89.4) 02/02/2025 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) 02/02/2025 DJD (degenerative joint disease) of knee (ICD-10 - M17.9) Plan Of Treatment Medication Medication Name Sig Start Date Stop Date Notes Gabapentin 800 MG 1 tab(s) orally 2 times a day MS Contin 15 MG 1 tab(s) orally Two times a day Next Appt Details Follow Up: 2 Months, Reason: Provider Name:Imani Beaulieu, 06/06/2025 11:30:00 AM, [address] [place] [address], [address], [place], [id number], Provider Name:Imani Beaulieu, 10/03/2025 11:45:00 AM, [address] [place] [address], [facility] [address], [place], [id number], Progress Notes * Huber DYEROB:1960 ( 65 yo M)Acc No.[id number]:02/02/2025 Progress Notes Patient: Brian BRANDON Provider: Imani Garcia M.D. :1960 A ge:64 Y S ex:Male Date:02/02/2025 Address:[address] [place] [address], [place] Subjective: * Chief Complaints: * 1 . 2 months WORKERS COMP. * HPI: H PI: 64 year old male presents with c/o Patient is here today for?Pt sts he is here for a workers comp for c/o of hurting his rt knee and sts it is not any better.? * ROS: D ERMATOLOGY: no R jesus. [...] stic Procedure: h igh blood pressure 2002, [facility] ER-bells palsy 11/2012. * Family History: F [...] tablet orally once a day , Taking Naproxen 500 mg Tablet TAKE ONE TABLET BY MOUTH TWICE DAILY - TAKE WITH FOOD- , Taking Rosuvastatin Calcium 40 mg Tablet TAKE ONE TABLET BY MOUTH EVERY DAY , Taking Omeprazole 40 MG Capsule Delayed Release 1 cap(s) orally once a day , Taking Gabapentin 800 MG Tablet 1 tab(s) orally 2 times a day , Taking rOPINIRole HCl 1 MG Tablet 1 tablet Orally At Bed Time , Taking MS Contin 15 MG Tablet Extended Release 1 tab(s) orally Two times a day , Medication List reviewed and reconciled with the patient * Allergies: P rotonix, Ibuprofen. Objective: * Vitals: W t: 270.6, Temp: 97.9, BP: 130/74, HR: 59, O2 Sat: 97% on RA, Nurse: [facility], Ht: 70, BMI:38.82. * Examination: G eneral Examination: General Appearance: N AD at rest. N jessica: s upple, no lymphadenopathy, no carotid bruits. H eart: R SR. L ungs: c lear to auscultation.?Extremities: n o edema. Ambulates with limp. Noted deformity of right knee.? No effusion. Assessment: * Assessment: 1. C ongenital dislocation of right hip - Q65.01 (Primary) 2 . C hronic pain syndrome - G89.4 3 . D DARLEEN (degenerative joint disease) of knee - M17.9 ? Plan: * Treatment: * Follow Up: 2 Months * Images: Billing Information: * Visit Code: 74190 Office Visit, Est Pt., Level 3. * Procedure Codes: * Electronic signature of Imani Garcia MD on 05/16/2025 at 11:44 AM EST Sign off status: Pending * Provider: Imani Garcia M.D. Date: 02/02/2025 Generated for Mary hinds/Natalie/eTransmitting on: 1 07/17/2024 11:44 AM EST History and Physical Notes * HPI (History of Present Illness) Category Sub-Category Detail Notes Category Not es HPI Patient is here today for Pt sts he is here for a workers comp for c/o of hurting his rt knee and sts it is not any better Examination Category Sub-Category Detail Notes Category Not es General Examination Heart: RSR Lungs: clear to auscultatio n Extremities: no edema. Ambulates with limp. Noted deformity of right knee. No effusion General Appearance: NAD at rest Neck: supple, no lymphaden opathy, no carotid bruits
--- OUTSIDE RECORDS SUMMARY | 2025-04-04 06:45 | XMS_ITS ---
Author Organization [facility] Address [address] [place] [id number] Care Team Providers Care Senior Product Development Engineer Name Role Phone Imani Garcia Primary Care Provider Allergies Allergen (clinical drug ingredient) Drug/Non Drug Allergy documented on EMR Reaction Allergy Type Onset Date Status ibuprofen Ibuprofen Unknown Drug Allergy Active pantoprazole Protonix Unknown Drug Allergy Acti ve Results Component Value Reference Range Notes P-Comprehensive Metabolic Pa chaka (CMP) Reviewed date:04/06/2025 08:48:28 AM Interpretation:GFR 48 Performing Lab: Notes/Report: CLIA: [id number] Guanako Chadwick MD, Display And Banner Designer [address] [place] [address] , [address], [place] [address] Test performed by [facility], [facility] Sodium 143 135-145 mmol/L Potassium 4.3 3.5-5.3 mmol/L Chloride 107 97-108 mmol/L CO2 24 20-32 mmol/L Glucose 95 65-99 mg/dL BUN 16 8-23 mg/dL Creatinine 1.60 0.70-1.30 mg/dL Calcium 9.4 8.6-10.4 mg/dL eGFR by Creatinine 48 >59 mL/min/1.73m2 Protein 6.9 6.0-8.3 g/dL Albumin 4.1 3.5-5.3 g/dL Alkaline Phosphatase 77 40-129 IU/L ALT (SGPT) 14 <5-55 IU/L AST (SGOT) 19 <5-46 IU/L Bilirubin, Total 0.3 <0.2-1.2 mg/dL A/G Ratio 1.5 1.1-2.5 P-Lipid Panel Reviewed date:04/06/2025 08:48:28 AM Interpretation:LDL 25 Performing Lab: Notes/Report: Test performed by [facility], [address] , [place] , [place] [address] Guanako Chadwick MD, Display And Banner Designer CLIA: [id number] Lipid Panel Footnote See Below *Based on optimal reference values. Please refer to the DOS for additional information regarding diagnostic lipid reference ranges, patient management based on the recently updated lipid guidelines ([place] [employer]/[place] [employer] Association Task Force on Clinical Practice Guidelines (2018), and pediatric diagnostic lipid reference values (<18 years old). Total Cholesterol 88 <200 mg/dL Triglycerides 180 <150 mg/dL HDL Cholesterol 27 >40 mg/dL Total Cholesterol / HDL Ratio* 3.26 <4.99 Ratio Non-HDL Cholesterol 61 <130 mg/dL LDL Cholesterol (Calculation) 25 <100 mg/dL LDL / HDL Ratio* 0.93 <2.49 Ratio LDL Cholesterol Patient History Test Date: 02/04/2024 LDL Results: 19 Units: mg/dL % Change: - Test Date: 04/04/2025 LDL Results: 25 Units: mg/dL % Change: +31% P-PSA Reviewed date:04/06/2025 08:48:28 AM Interpretation:9.42 (PSA was 9.0 in 2018 with negative biopsy) Performing Lab: Notes/Report: Test performed by [facility] [address] , [address] , [place] [address] Guanako Chadwick MD, Display And Banner Designer CLIA: [id number] PSA 9.42 <4.00 ng/mL Please note this is an ultrasensitive PSA assay with a lower limit of detection of 0.014 ng/mL. This test is performed by the [employer] ECLIA methodology. Values obtained with different assay methods or kits cannot be directly compared. REASON FOR VISIT check up, Needs labs with PSA & colon cancer screening Medications Medication SIG (Take, Route, Frequency, Duration) Notes Start Date End Date Status Gabapentin 800 MG 1 tab(s) orally 2 ti mes a day; Duration: 30 days 03/31/2025 Active MS Contin 15 MG 1 tab(s) orally Two times a day; Duration: 30 days 04/03/2025 Active Omeprazole 40 MG 1 cap(s) orally once a day; Duration: 90 days Active Rosuvastatin Calcium 40 mg 1 tablet oral ly once a day Active rOPINIRole HCl 1 MG 1 tablet Orally At B ed Time; Duration: 90 days Active Ezetimibe 10 MG 1 tablet Orally Once a day Active Metoprolol Tartrate 50 MG 1 tab(s) Orall y 2 times a day Active Isosorbide Mononitrate ER 30 MG 1 tab(s) orally once a day (in the morning) Active Aspirin 81 MG 1 tablet orally once a day Active Naproxen 500 mg 1 tablet with food o rally twice a day; Duration: 90 days Active Vital Signs Blood pressure systolic 132 mm Hg 04/04/20 25 Blood pressure diastolic 80 mm Hg 025 Heart Rate 62 /min 04/04/2025 Height 70 in 04/04/2025 Weight 269.6 lbs 04/04/2025 BMI 38.68 kg/m2 04/04/2025 Encounters Encounter Location Date Provider Diagnosis [facility] [address] [facility] [address] [place] [id number] 04/04/2025 Imani Garcia HTN (hypertension) I 10 ; Dyslipidemia E78.5 ; GERD (gastroesophageal reflux disease) K21.9 ; RLS (restless legs syndrome) G25.81 ; ASCVD (arteriosclerotic cardiovascular disease) I25.10 ; Generalized osteoarthritis M15.9 and Prostate cancer screening Z12.5 Assessments Encounter Date Diagnosis (ICD Code) Assessment Notes Treatment Notes Treatment Clinical Notes Section Notes 04/04/2025 HTN (hypertension) (ICD-10 - I10) 04/04/2025 Dyslipidemia (ICD-10 - E78.5) 04/04/2025 GERD (gastroesophageal reflux disease) (ICD-10 - K21.9) 04/04/2025 RLS (restless legs syndrome) (ICD-10 - G25.81) 04/04/2025 ASCVD (arteriosclerotic cardiovascular disease) (ICD-10 - I25.10) 04/04/2025 Generalized osteoarthritis (ICD-10 - M15.9) 04/04/2025 Prostate cancer screening (ICD-10 - Z12.5) Plan Of Treatment Medication Medication Name Sig Start Date Stop Date Notes Omeprazole 40 MG 1 cap(s) orally once a day; Duration: 90 days Rosuvastatin Calcium 40 mg 1 tablet orally once a day rOPINIRole HCl 1 MG 1 tablet Orally At B ed Time; Duration: 90 days Ezetimibe 10 MG 1 tablet Orally Once a day Metoprolol Tartrate 50 MG 1 tab(s) Orall y 2 times a day Isosorbide Mononitrate ER 30 MG 1 tab(s) orally once a day (in the morning) Next Appt Details Follow Up: 6 Months, Reason: Provider Name:Imani Beaulieu, 06/06/2025 11:30:00 AM, [address] [facility] [address] [facility], [facility] [address], [place], [phone], Provider Name:Imani Beaulieu, 10/03/2025 11:45:00 AM, [address] [facility] 36 [facility], [facility] [address], [place], [phone], Progress Notes * Dario DYER:1960 ( 65 yo M)Acc No.[id number]:04/04/2025 Progress Notes Patient: Brian BRANDON Provider: Imani Garcia M.D. :1960 A ge:64 Y S ex:Male Date:04/04/2025 Address:[address] [place] [address], [place] [facility] Subjective: * Chief Complaints: * 1 . Check up. 2. Needs labs with PSA & colon cancer screening. * HPI: H PI: Patient is here today for c heckup and labs. Pt is not fasting. Pt states he needs refills on meds. Pt states he has no new concerns today. * ROS: D ERMATOLOGY: no R jesus. [...] Rajat/ stent x 1 10/23/21, CABG - 11/2021, Reconstruction Surgery of the Right Hip and pelvis/ 08/22/2022. * Hospitalization/Major Diagno stic Procedure: h igh blood pressure 2002, [facility] ER-bells palsy 11/2012. * Family History: F [...] 64, O2 Sat: 98% on RA, Nurse: PE, Ht: 70, BMI:38.68. * Examination: G eneral Examination: General Appearance: N AD. N jessica: s upple, no lymphadenopathy, no carotid bruits. H eart: R SR. L ungs: c lear to auscultation. E xtremities: n o leg edema. Assessment: * Assessment: 1. H TN (hypertension) - I10 (Primary) 2 . D yslipidemia - E78.5 3 . G ERD (gastroesophageal reflux disease) - K21.9 4 . R LS (restless legs syndrome) - G25.81 5 . A SCVD (arteriosclerotic cardiovascular disease) - I25.10 6 . G eneralized osteoarthritis - M15.9 7 . P rostate cancer screening - Z12.5 Plan: * Treatment: Value Reference Range A /G Ratio 1.5 1.1-2.5 - * A lbumin 4.1 3.5-5.3 - g/dL * A lkaline Phosphatase 77 40-129 - IU/L * A LT (SGPT) 14 <5-55 - IU/L * A ST (SGOT) 19 <5-46 - IU/L * B ilirubin, Total 0.3 <0.2-1.2 - mg/dL * B UN 16 8-23 - mg/dL * C alcium 9.4 8.6-10.4 - mg/dL * C hloride 107 97-108 - mmol/L * C O2 24 20-32 - mmol/L * C reatinine 1.60 H 0.70-1.30 - mg/dL * G lucose 95 65-99 - mg/dL * P otassium 4.3 3.5-5.3 - mmol/L * S odium 143 135-145 - mmol/L * P rotein 6.9 6.0-8.3 - g/dL * e GFR by Creatinine 48 L >59 - mL/min/1.73m2 * Imani Garcia 04/06/2025 08:48:12 AM EST > See phone encounter 2.?Dyslipidemia? Refill Ezetimibe Tablet, 10 MG, 1 tablet, Orally, Once a day, 90, Refills 1;?Refill Rosuvastatin Calcium Tablet, 40 mg, 1 tablet, orally, once a day, 90, Refills 1.?LAB: P-Lipid Panel (Collection Date & Time - 04/04/2025 11:16 AM)?LDL 25* Value Reference Range C holesterol / HDL Ratio 3.26 <4.99 - Ratio * C holesterol 88 <200 - mg/dL * H DL Cholesterol 27 L >40 - mg/dL * L DL Cholesterol (Calculation) 25 <100 - mg/d L * L DL/HDL Ratio 0.93 <2.49 - Ratio * N on-HDL Cholesterol 61 <130 - mg/dL * T riglycerides 180 H <150 - mg/dL * L ipid Panel Footnote See Below - * Imani Garcia Kuldeep 04/06/2025 08:48:12 AM EST > See phone encounter 3.?GERD (gastroesophageal reflux disease)? Refill Omeprazole Capsule Delayed Release, 40 MG, 1 cap(s), orally, once a day, 90 days, 90 Capsule, Refills 1.??4.?RLS (restless legs syndrome)? Refill rOPINIRole HCl Tablet, 1 MG, 1 tablet, Orally, At Bed Time, 90 days, 90, Refills 1.? 5.?ASCVD (arteriosclerotic cardiovascular disease)? Refill Isosorbide Mononitrate ER Tablet Extended Release 24 Hour, 30 MG, 1 tab(s), orally, once a day (in the morning), 90, Refills 1.??6.?Prostate cancer screening?LAB: P-PSA (Collection Date & Time - 04/04/2025 11:16 AM)?9.42 (PSA was 9.0 in 2018 with negative biopsy)* Value Reference Range P SA 9.42 H <4.00 - ng/mL * Imani Garcia Kuldeep 04/06/2025 08:48:12 AM EST > See phone encounter * Procedure Codes: G 2211 Complex e/m visit add on, G8950 PREHTN/HTN BP DOC INDCD F/U DOC, G8752 MOST RECENT SYSTOLIC BP < 140MM HG, G8754 MOST RECENT DIASTOLIC BP < 90MM HG, 3075F SYST BP GE 130 - 139MM HG, 3079F DIAST BP 80-89 MM HG * Follow Up: 6 Months * Images: Billing Information: * Visit Code: 96633 Office Visit, Est Pt., Level 4. * Procedure Codes: G2211 Complex e/m visit add on. G8950 PREHTN/HTN BP DOC INDCD F/U DOC. G8752 MOST RECENT SYSTOLIC BP < 140MM HG. G8754 MOST RECENT DIASTOLIC BP < 90MM HG. 3075F SYST BP GE 130 - 139MM HG. 3079F DIAST BP 80-89 MM HG. * Electronic signature of Imani Garcia MD on 05/16/2025 at 11:44 AM EST Sign off status: Pending * Provider: Imani Garcia M.D. Date: 06/04/2024 Generated for Mary hinds/Natalie/Taraitting on: 07/17/2024 11:44 AM EST History and Physical Notes * HPI (History of Present Illness) Category Sub-Category Detail Notes Category Not es HPI Patient is here today for checku p and labs. Pt is not fasting. Pt states he needs refills on meds. Pt states he has no new concerns today Examination Category Sub-Category Detail Notes Category Not es General Examination Heart: RSR Lungs: clear to auscultatio n Extremities: no leg edema General Appearance: NAD Neck: supple, no lymphaden opathy, no carotid bruits
--- OUTSIDE RECORDS SUMMARY | 2025-04-04 06:45 | XMS_ITS ---
Author Organization [facility] Address [address] [place] [phone] Care Team Providers Care Leather Roller Name Role Phone Imani Garcia Primary Care [...] Encounters Encounter Location Date Provider Diagnosis [facility] [address] [place] [address] [address] [place] [phone] 04/04/2025 Imani Garcia Chronic pain syndrom e [...] Reason: Provider Name:Imani Beaulieu, 06/06/2025 11:30:00 AM, [address] [place] [address], [address], [place], [phone], Provider Name:Imani Beaulieu, 10/03/2025 11:45:00 AM, [address] [place] [address], [facility] [address], [place], [phone], Progress Notes * Huber DYEROB:1960 ( 65 yo M)Acc No.[id number]:04/04/2025 Progress Notes Patient: Brian BRANDON Provider: Imani Garcia M.D. :1960 A ge:64 Y S ex:Male Date:04/04/2025 Address:[address] [place] [address], [id number] Subjective: * Chief Complaints: * 1 . [...] h igh blood pressure 2002, [facility] ER-bells palsy 11/2012. * Family [...] * Images: Billing Information: * Visit Code: 05945 Office Visit, Est Pt., Level 3. * Procedure Codes: * Electronic signature of Imani Garcia MD on 05/16/2025 at 11:45 AM EST Sign off status: Pending * Provider: Imani Garcia M.D. Date: 06/04/2024 Generated for Mary hinds/Natalie/eTransmitting on: 1 07/17/2024 11:45 AM EST History and Physical Notes * Examination Category Sub-Category Detail Notes Category Not es General Examination Heart: RSR Lungs: clear to auscultatio n Extremities: no edema. Noted defo rmity of right knee. No effusion. Walks with a limp General Appearance: NAD at rest Neck:
[2025-05-16] VITALS (11 sets, daily range): BP systolic 105–172; BP diastolic 65–90; PULSE 58–90; RESP 18–20; TEMP 36.7–37; O2SAT 91–99; BMI 36.2
--- NOTE | 2025-05-16 11:40 | XR_ITS ---
FINAL REPORT CLINICAL HISTORY: left leg pain FINDINGS: LEFT FEMUR 2 views were obtained. There is no acute fracture. Hip is intact. There is degenerative disease of the left knee with chondrocalcinosis. There is questionable erosion along the lateral femoral condyle. No significant joint effusion. IMPRESSION: Questionable erosion along the lateral femoral condyle. No acute bony abnormality. Reviewed, Interpreted and Dictated by Gisel Hess MD Transcribed by Latesha Miller Authenticated and [facility]
--- NOTE | 2025-05-16 11:40 | CT_ITS ---
FINAL REPORT TECHNIQUE: Axial images through the pelvis were performed by computed tomography. Sagittal and coronal reconstruction images were performed. This study was performed with techniques to keep radiation doses as low as reasonably achievable (ALARA). Individualized dose reduction techniques using automated exposure control or adjustment of mA and/or kV according to the patient's size were employed. CLINICAL HISTORY: back pain down LLE, hx of hip avascular necrosis COMPARISON: None FINDINGS: There are postoperative changes from right hip arthroplasty. The hardware appears intact. There is no acute fracture of the pelvis or left hip. Degenerative joint disease is noted at the bilateral SI joints and left hip. There is no evidence of left femoral head AVN. No acute soft tissue abnormality. IMPRESSION: Postoperative and degenerative changes without acute osseous abnormality of the pelvis or left hip. Reviewed, Interpreted and Dictated by Gisel Hess MD Transcribed by Meeta Thomas Authenticated and . [facility]
--- NOTE | 2025-05-16 11:40 | CT_ITS ---
FINAL REPORT TECHNIQUE: Thin section axial images were obtained through the lumbar spine without contrast. Multiplanar reconstruction images were obtained from the axial data. Exam was performed using dose reduction technique per the ALARA principle. CLINICAL HISTORY: back pain, LLE pain, hx hip avascular necrosis COMPARISON: None FINDINGS: There is no acute fracture or acute malalignment of the lumbar spine. Vertebral body height is preserved. Multilevel degenerative disc disease is most pronounced at L4-5 and L5-S1. There is no significant central stenosis. Evaluation of the soft tissues is limited due to technique. No gross paraspinal abnormality. IMPRESSION: No acute fracture of the lumbar spine. Degenerative disc disease. Consider MRI. Reviewed, Interpreted and Dictated by Gisel Hess MD Transcribed by Meeta Thomas Authenticated and [facility]
--- NOTE | 2025-05-16 11:40 | XR_ITS ---
FINAL REPORT CLINICAL HISTORY: Left hip/pain knee COMPARISON: None FINDINGS: 3 images of the left knee were obtained. There is no evidence of fracture or dislocation. Advanced degenerative joint disease is present with chondrocalcinosis noted within the knee joint. Small to moderate joint effusion is present. There is no soft tissue abnormality identified. IMPRESSION: Marked degenerative changes, with no acute bony abnormality. If symptoms persist, MRI is suggested for further evaluation. Reviewed, Interpreted and Dictated by Gisel Hess MD Transcribed by Hamida Hernandez Authenticated and . [facility]
--- NOTE | 2025-05-16 11:43 | [facility].EDGENADL ---
Discharge Plan Disposition Patient Disposition: Home, Self-Care Prescriptions Prescriptions: New methocarbamol 500 mg tablet 500 mg PO BID PRN (Reason: muscle spasm) Qty: 30 0RF No Action morphine 15 mg tablet extended release 15 mg PO Q12H aspirin [Aspir-81] 81 mg tablet,delayed release (DR/EC) 81 mg PO DAILY gabapentin 400 mg capsule 800 mg PO BID omeprazole 40 mg capsule,delayed release(DR/EC) 40 mg PO DAILY loratadine 10 mg tablet 10 mg PO DAILY PRN (Reason: allergies) Patient Comments: TAKE ONE TABLET BY MOUTH EVERY DAY naproxen sodium [Aleve] 220 mg tablet 220 mg PO BID PRN (Reason: Pain) ropinirole 0.5 mg tablet 0.5 mg PO HS ezetimibe 10 mg tablet See Rx Instructions .ROUTE .COMPLEX Qty: 90 3RF Dose Instruction: TAKE ONE TABLET BY MOUTH EVERY DAY Rx Instructions: TAKE ONE TABLET BY MOUTH EVERY DAY isosorbide mononitrate 30 mg tablet extended release 24 hr See Rx Instructions .ROUTE .COMPLEX Qty: 30 11RF Dose Instruction: TAKE ONE TABLET BY MOUTH EVERY DAY Rx Instructions: TAKE ONE TABLET BY MOUTH EVERY DAY metoprolol succinate 50 mg tablet extended release 24 hr See Rx Instructions .ROUTE .COMPLEX Qty: 180 1RF Dose Instruction: TAKE ONE TABLET BY MOUTH TWICE DAILY FOR HIGH BLOOD PRESSURE Rx Instructions: TAKE ONE TABLET BY MOUTH TWICE DAILY FOR HIGH BLOOD PRESSURE rosuvastatin 20 mg tablet 40 mg PO DAILY albuterol sulfate [Ventolin HFA] 90 mcg/actuation HFA aerosol inhaler 2 puff inhalation Q6H PRN (Reason: shortness of breath or wheezing) Qty: 6.7 0RF Referrals Follow up/Referrals: Ganesh Garcia MD [Primary Care Provider, Medical] - See instructions Activity Restrictions/Add. Instructions Additional Instructions/Restrictions: Encourage you to follow-up with your primary care doctor if your symptoms continue. You are being prescribed a muscle relaxer to help with your pain. Take this as prescribed as needed. Avoid driving if taking this medication as it can make you sleepy. Continue your home medications as prescribed. You likely have a pinched nerve that is causing your symptoms. Continue to walk and stretch the leg is much as you can. If you develop any new or worsening symptoms, such as weakness in 1 or both legs, inability to control your bowel or bladder, numbness or tingling in your genital region, or if you become concerned for your health for any reason, return to the emergency department for evaluation. Clinical Impressions Clinical Impression: Left leg pain Print Language Print Language: Cymraes Discharge ED Provider: Obie Olivas General Adult HPI General Chief complaint: PAIN Stated complaint: Pain in left side of hip - no accident Time Seen by Provider: 05/16/25 11:34 Mode of Arrival: Wheelchair Source of Information: Patient Description of Symptoms (Recalled from ER Triage Doc. by RN): pt presents to ED with c/o left sided hip and knee pain. pt reports no known injury or accident. pain worse with ambulation. pt reports that he has post void leakage since pain began. pt states that hip pain began first, and it has since radiated into his knee. History of Present Illness HPI narrative: Brian Dyer is a 65-year-old male with a history of tobacco use, hypertension, GERD, right hip surgery who presents to the emergency department for complaints of left sided hip pain and back pain. Patient states over the last week, he has had a dull shooting from his left hip down to his knee. He also reports some pain in his mid lower back. He states that walking makes the pain worse. 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 He does note that he has rods in his right lower extremity from traumatic injury. He states that the pain in his left hip feels similar to when his right hip deteriorated. He denies any recent trauma or falls. He denies any numbness or weakness. Related Data Home Medications ?Medication ?Instructions ?Recorded ?Confirmed aspirin 81 mg tablet,delayed 81 mg PO DAILY prevent 07/15/18 07/11/24 release (Aspir-) morphine 15 mg tablet,extended 15 mg PO Q12H Pain 07/15/18 07/11/24 release omeprazole 40 mg capsule,delayed 40 mg PO DAILY GERD 10/23/20 07/11/24 release gabapentin 400 mg capsule 800 mg PO BID Pain 10/22/21 07/11/24 loratadine 10 mg tablet 10 mg PO DAILY PRN allergies 10/22/21 07/11/24 rosuvastatin 20 mg tablet 40 mg PO DAILY Cholesterol 02/07/22 07/11/24 naproxen sodium 220 mg tablet 220 mg PO BID PRN Pain 05/16/22 07/11/24 (Aleve) ropinirole 0.5 mg tablet 0.5 mg PO HS 12/29/22 07/11/24 Previous Rx's ?Medication ?Instructions ?Recorded albuterol sulfate 90 mcg/actuation 2 puff inhalation Q6H PRN 01/20/23 aerosol inhaler (Ventolin HFA) shortness of breath or wheezing #6.7 grams ezetimibe 10 mg tablet See Rx Instructions .Route 05/30/24 .COMPLEX #90 tabs isosorbide mononitrate 30 mg See Rx Instructions .Route 06/20/24 tablet,extended release 24 hr .COMPLEX #30 tabs metoprolol succinate 50 mg See Rx Instructions .Route 12/13/24 tablet,extended release 24 hr .COMPLEX #180 tabs methocarbamol 500 mg tablet 500 mg PO BID PRN muscle spasm #30 05/16/25 tabs Allergies Allergy/AdvReac Type Severity Reaction Status Date / Time No Known Allergies Allergy Verified 07/11/24 14:[address] [facility] Disclaimer: The information contained in this section may have been updated after the patient was seen, as this information can be updated by other users. Medical History Tobacco dependence syndrome Dyspnea Gastroesophageal reflux disease Encounter for pre-operative cardiovascular clearance Abnormal electrocardiography Family history of heart disease Social History Smoking Status: Current every day smoker tobacco type: cigarettes packs per day: 1 alcohol intake: never current occupational status: unemployed Travel in the last 8 weeks?: Inside the [place] household members: spouse caffeine: Yes Have you lived/traveled outside [place] in past 30 days?: No Contact w/someone who lives/traveled outside [place] past 30 days?: No Exposure to someone with infectious disease in past 14 days?: No Do you have a fever (greater than 100.4 F or 38 C)?: No Have you tested positive for COVID-19?: No Exposed to someone with COVID-19 in past 14 days?: No Do you have a sore throat?: No Do you have a cough?: No Do you have any weakness?: No Do you have any diarrhea?: No Are you experiencing any unusual bleeding?: No Do you have any muscle aches/pain?: No Do you have any abdominal pain?: No Are you experiencing loss of taste or smell?: No Other Medical History Have you received the Flu Vaccine for this season: No Have you received the Pneumonia Vaccine: No ROS Obtained: Yes Systems reviewed as appropriate & no additional complaints except as documented Physical Exam General General appearance: alert and in no apparent distress Head Head exam: atraumatic Eye Eye exam: Present normal appearance ENT ENT exam: Present normal external ear exam Neck Neck exam: Present full ROM Chest Chest inspection: Present symmetric chest wall rise Respiratory Respiratory exam: Present normal lung sounds bilaterally; Absent respiratory distress Cardiovascular Cardiovascular exam: Present regular rate and normal rhythm Abdominal Exam Abdominal exam: Present soft; Absent tenderness or guarding exam: Present deferred Extremities Exam Extremities exam: Present normal inspection Expanded Lower Extremity Exam Left: Comment: LLE: Tenderness outpatient over the left lateral hip. Flexion and extension intact at the knee with 5 out of 5 strength. 5 out of 5 strength with plantar dorsiflexion of the ankle. Pulses intact distally. Some tenderness over the proximal knee. No swelling in the calf or knee is noted. Back Exam Back exam: Present normal inspection and vertebral tenderness (Midline lumbar spine tenderness without step-off or deformity) Neurological Exam Neurological exam: Present alert, oriented X3 and normal gait; Absent motor sensory deficit Psychiatric Psychiatric exam: Present normal affect Skin Skin exam: Present warm and dry Medical Decision Making Medical Records Screening: Per USPSTF and CDC recommendations, given the prevalence of disease in our region, it is our hospital?s policy to screen for HIV and viral Hepatitis for all patients aged 18 and over and those with ongoing risk factors. [place] Inquiry Pt receiving controlled substance: No Vital Signs: 05/16/25 11:35 05/16/25 11:36 05/16/25 11:41 Temperature 98.0 F Temperature Source Oral Pulse Rate 69 66 Pulse Rate [Left Radial] 69 Respiratory Rate 19 18 Blood Pressure 111/79 111/79 Blood Pressure [Right Arm] 172/90 H Blood Pressure Mean [Right Arm] 117 Blood Pressure Source Automatic Cuff Blood Pressure Position Sitting 02 Sat by Pulse Oximetry 99 98 97 Oxygen Delivery Method Room Air Room Air Room Air 05/16/25 11:45 05/16/25 12:31 05/16/25 13:00 Temperature Temperature Source Pulse Rate 65 60 58 L Pulse Rate [Left Radial] Respiratory Rate Blood Pressure 105/65 L 111/78 Blood Pressure [Right Arm] Blood Pressure Mean [Right Arm] Blood Pressure Source Blood Pressure Position 02 Sat by Pulse Oximetry 91 L 97 98 Oxygen Delivery Method 05/16/25 13:30 05/16/25 14:01 05/16/25 14:30 Temperature Temperature Source Pulse Rate 61 67 60 Pulse Rate [Left Radial] Respiratory Rate Blood Pressure 108/75 L 109/79 L Blood Pressure [Right Arm] Blood Pressure Mean [Right Arm] Blood Pressure Source Blood Pressure Position 02 Sat by Pulse Oximetry 98 99 98 Oxygen Delivery Method 05/16/25 15:01 Temperature Temperature Source Pulse Rate 62 Pulse Rate [Left Radial] Respiratory Rate Blood Pressure 109/78 L Blood Pressure [Right Arm] Blood Pressure Mean [Right Arm] Blood Pressure Source Blood Pressure Position 02 Sat by Pulse Oximetry 97 Oxygen Delivery Method Orders (Tests/Meds): ED MEDICATIONS Discontinued Medications Generic Name Dose Route Start Last Admin Trade Name Freq PRN Reason Stop Dose Admin Oxycodone HCl 5 mg 05/16/25 11:42 05/16/25 11:46 Oxycodone 5mg Immediate Release Tablet PO 05/16/25 11:43 5 mg ONCE ONE Administration ORDERS Category Date Time Status CT bony pelvis Stat Cat Scan 05/16/25 11:[address] lumbar spine wo con Stat Cat Scan 05/16/25 11:40 Completed Femur XR left 2 views [XR femur LT 2V] Stat Exams 05/16/25 11:40 Completed Knee XR left 2 views [XR knee LT 2V] Stat Exams 05/16/25 11:40 Taken Medical Decision Narrative: Brian Dyer is a 65-year-old male with a history of tobacco use, hypertension, GERD, right hip surgery who presents to the emergency department for complaints of left sided hip pain and back pain. Patient states over the last week, he has had a dull shooting from his left hip down to his knee. He also reports some pain in his mid lower back. He states that walking makes the pain worse. 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 He does note that he has rods in his right lower extremity from traumatic injury. He states that the pain in his left hip feels similar to when his right hip deteriorated. He denies any recent trauma or falls. He denies any numbness or weakness. Patient states that he takes morphine, gabapentin, naproxen at home at baseline for chronic pain from his right lower extremity and has been taking these without relief. On arrival, patient is hemodynamically stable, in no acute distress, breathing comfortably on room air. Afebrile. Physical exam, as stated above, revealed an overall nontoxic-appearing male in no distress. He has tenderness over the left lateral hip without deformity or swelling. He has tenderness over the left proximal knee without swelling or deformity. No calf tenderness or swelling. Distal pulses are intact. Flexion extension at the knee and dorsiflexion plantarflexion of the ankle are intact. Pulses are intact. Patient does have midline lumbar spine tenderness without deformity or step-off. Differential diagnosis includes, but is not limited to: Sciatica, compression fracture, avascular necrosis of the femoral head, long bone fracture, among others. The most morbid conditions were considered and workup was based on these. Workup in the emergency department included: Lumbar spine CT, bony pelvis CT, left femur and left knee x-rays. I have low concern for DVT as patient has no leg swelling and no tenderness over the calf muscle. Will administer [address] imaging was interpreted by me personally. No acute fracture of the lumbar spine. Patient has degenerative disc disease. No acute findings in the pelvis. No evidence of avascular necrosis. X-ray imaging was interpreted by me personally. No acute fracture or dislocation of the left lower extremity. Per radiology, there is questionable erosion along the lateral femoral condyle. Radiology report from knee is still pending at this time patient would like to go home. I do not appreciate any acute fractures or malalignment. On reassessment, patient remains in stable condition. I do feel that his symptomatology is best explained by sciatic nerve pain. Recommend he follow with his primary care doctor. Will prescribe a muscle relaxer. Return precautions were given. All questions were answered. He demonstrated understanding and was in agreement this plan. He was then discharged from the emergency department in stable condition peer Critical Care Critical Care Time Critical Care Time: No
[2025-05-16] MEDS: OXYCODONE 5MG IMMEDIATE RELEASE TABLET 5 MG PO (11:46)
--- OUTSIDE RECORDS SUMMARY | 2025-05-16 11:46 | XMS_ITS | Patient Health Record ---
Author Organization [facility] Address [address] [place] [id number] Care Team Providers Care Caustics Loader Name Role Phone Imani Garcia Primary Care Provider Richard Morales Unavailable [phone] Allergies Allergen (clinical drug ingredient) Drug/Non Drug [...] no evidence of lung cancer, annual f/u P-Comprehensive Metabolic Pa chaka (CMP) Reviewed date:04/06/2025 08:48:28 AM Interpretation:GFR 48 Performing Lab: Notes/Report: Test performed by [facility] [facility] [address] , [address], [place] [address] Guanako Chadwick MD, Administrative Hearing Officer CLIA: [id number] Sodium 143 135-145 mmol/L Potassium 4.3 3.5-5.3 [...] 25 Performing Lab: Notes/Report: Test performed by [facility], [address] , [place] [address] Guanako Chadwick MD, Administrative Hearing Officer CLIA: [id number] Lipid Panel Footnote See Below *Based on optimal reference values. Please refer to the DOS for additional information regarding diagnostic lipid reference ranges, patient management based on the recently updated lipid guidelines ([place] [employer]/[place] [employer] Task Force on Clinical Practice [...] biopsy) Performing Lab: Notes/Report: Test performed by [facility], [address] , [facility], [place] [address] Guanako Chadwick MD, Administrative Hearing Officer CLIA: [id number] PSA 9.42 <4.00 ng/mL Please note this is an ultrasensitive PSA assay with a lower limit of detection of 0.014 ng/mL. This test is performed by the [employer] ECLIA methodology. Values obtained with different assay methods or kits cannot be directly compared. Reason For Referral No Information Medications Medication SIG (Take, Route, Frequency, Duration) Notes Start Date End Date Status Ezetimibe 10 MG 1 tablet Orally Once a day Active Metoprolol Tartrate 50 MG 1 tab(s) Orall y 2 times a day Active Isosorbide Mononitrate ER 30 MG 1 tab(s) orally once a day (in the morning) Active MS Contin 15 MG 1 tab(s) orally Two times a day; Duration: 30 days 05/01/2025 Active Gabapentin 800 MG 1 tab(s) orally 2 ti mes a day; Duration: 30 days 03/31/2025 Active Aspirin 81 MG 1 tablet orally once a day Active Omeprazole 40 MG 1 cap(s) orally once a day; Duration: 90 days Active Naproxen 500 mg 1 tablet with food o rally twice a day; Duration: 90 days Active Rosuvastatin Calcium 40 mg 1 tablet oral ly once a day Active rOPINIRole HCl 1 MG 1 tablet Orally At B ed Time; Duration: 90 days Active Immunizations Vaccine Route Administration Date Status Comme nts Tetanus Tdap-Adacel (over 7yrs) Unknown 07/17/2021 Admi nistered Problems Problem Type SNOMED Code ICD Code Onset Dates Problem Status W/U Status Risk Notes Problem Anxiety disorder (340730832) Anxiety disorder (300.00) Active confirmed Problem Gastroesophageal reflux disease (781158579) GERD (gastroesophageal reflux disease) (K21.9) Active confirmed Problem Coronary arteriosclerosis (73673027) ASCVD (arteriosclerotic cardiovascular disease) (I25.10) Active confirmed Problem Back pain (578567814) Back pain (M54.9) Active confirmed Problem Hypertension (18484061) HTN (hypertension) (I10) Active confirmed Problem Morbid obesity (794036162) Morbid obesity (E66.01) Active confirmed Problem Hypertriglyceridemia (693688569) Hypertriglyceridemia (E78.1) Active confirmed Problem Osteoarthritis of knee (184075296) DJD (degenerative joint disease) of knee (M17.9) Active confirmed Problem Chronic pain syndrom e (543183699) Chronic pain syndrome (G89.4) Active confirmed Problem Nicotine dependence (28900561) Personal history of nicotine dependence (Z87.891) Active confirmed Problem Generalized osteoarthritis (249414602) Generalized osteoarthritis (M15.9) Active confirmed Problem Congenital dislocation of right hip (913501447) 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) Active confirmed Problem Body mass index 40+ - morbidly obese (678646965) BMI 40.0-44.9, adult (Z68.41) Active confirmed Problem Dyslipidemia (656876336) Dyslipidemia (E78.5) Active confirmed Problem Restless legs (39767556) RLS (restless legs syndrome) (G25.81) Active confirmed Problem Tobacco use (473123213) Tobacco use disorder (F17.200) Active confirmed Problem Retinal artery occlusion (699365791) Retinal artery occlusion (H34.9) Active confirmed Problem Thoracic aortic aneurysm without rupture (40619495) Thoracic aortic aneurysm without rupture (I71.2) Active confirmed Vital Signs Heart Rate 62 /min 04/04/2025 Blood pressure diastolic 80 mm Hg 04/04/2025 Height 70 in 04/04/2025 Blood pressure systolic 132 mm Hg 04/04/2025 Weight 269.6 lbs 04/04/2025 BMI 38.68 kg/m2 04/04/2025 Encounters Encounter Location Date Provider Diagnosis [facility] [address] [place] [id number] 06/02/2024 R Kuldeep Jose RLS (restless legs syndrome) G25.81 ; Chronic pain syndrome G89.4 ; HTN (hypertension) I10 ; Dyslipidemia E78.5 ; 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 and 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.9 [facility] [address] [place] [id number] 08/02/2024 R Kuldeep Jose RLS (restless legs syndrome) G25.81 ; Chronic pain syndrome G89.4 ; HTN (hypertension) I10 ; Dyslipidemia E78.5 ; 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 ; 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.9 and Tobacco use disorder F17.200 [facility] [address] [place] [id number] 10/04/2024 R Kuldeep Jose Chronic pain syndrom e G89.4 ; 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 ; Dyslipidemia E78.5 ; RLS (restless legs syndrome) G25.81 ; HTN (hypertension) I10 ; 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.9 ; Tobacco use disorder F17.200 ; ASCVD (arteriosclerotic cardiovascular disease) I25.10 ; GERD (gastroesophageal reflux disease) K21.9 ; BMI 40.0-44.9, adult Z68.41 and Morbid obesity E66.01 [facility] [address] [place] [id number] 12/01/2024 R Kuldeep Jose Chronic pain syndrom e G89.4 ; 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 and 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.9 [facility] [address] [place] [id number] 02/02/2025 R Kuldeep Jose Chronic pain syndrom e G89.4 ; 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 and 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.9 [facility] [address] [place] [id number] 04/04/2025 R Kuldeep Jose Chronic pain syndrom e G89.4 and 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.9 [facility] [address] [place], [place] [id number] 04/04/2025 R Kuldeep Jose HTN (hypertension) I 10 ; Dyslipidemia E78.5 ; GERD (gastroesophageal reflux disease) K21.9 ; RLS (restless legs syndrome) G25.81 ; ASCVD (arteriosclerotic cardiovascular disease) I25.10 ; Generalized osteoarthritis M15.9 and Prostate cancer screening Z12.5 [facility] [address] [place], [place] [id number] 07/05/2024 R Kuldeep Jose Chronic pain syndrom e G89.4 [facility] [address] [place] [id number] 07/06/2024 R Kuldeep Jose [facility] [address] [place], [place] [id number] 07/06/2024 R Kuldeep Jose [facility] [address] [place] [id number] 07/26/2024 R Kuldeep Jose Chronic pain syndrom e G89.4 [facility] [address] [place], [place] [id number] 07/26/2024 R Kuldeep Jose Chronic pain syndrom e G89.4 [facility] [address] [place] [id number] 07/27/2024 R Kuldeep Jose [facility] [address] [place] [id number] 07/27/2024 R Kuldeep Jose [facility] [address] [place] [id number] 07/27/2024 R Kuldeep Jose [facility] [address] [place] [id number] 07/29/2024 R Kuldeep Jose [facility] [address] [place], [place] [id number] 08/03/2024 R Kuldeep Jose [facility] [address] [place], [place] [id number] 08/12/2024 R Kuldeep Jose Chronic pain syndrom e G89.4 [facility] [address] [place] [id number] 08/15/2024 R Kuldeep Jose [facility] [address] [place] [id number] 08/29/2024 R Kuldeep Jose Chronic pain syndrom e G89.4 [facility] [address] [place], [place] [id number] 09/05/2024 R Kuldeep Jose Chronic pain syndrom e G89.4 [facility] [address] [place] [id number] 09/28/2024 R Kuldeep Jose Chronic pain syndrom e G89.4 [facility] [address] [place] [id number] 09/29/2024 R Kuldeep Jose [facility] [address] [place] [id number] 10/03/2024 R Kuldeep Jose [facility] [address] [place] [id number] 10/07/2024 R Kuldeep Jose [facility] [address] [place] [id number] 10/28/2024 Richard Herminie Chronic pain syndrom e G89.4 [facility] [address] [place], [place] [id number] 10/31/2024 Richard Herminie Chronic pain syndrom e G89.4 [facility] [address] [place] [id number] 10/31/2024 R Kuldeep Jose [facility] [address] [place], [place] [id number] 11/01/2024 R Kuldeep Jsoe [facility] [address] [place] [id number] 12/30/2024 R Kuldeep Jose Chronic pain syndrom e G89.4 [facility] [address] [place] [id number] 01/31/2025 R Kuldeep Jose Chronic pain syndrom e G89.4 [facility] [address] [place] [id number] 03/01/2025 R Kuldeep Jose Chronic pain syndrom e G89.4 [facility] [address] [place] [id number] 03/31/2025 R Kuldeep Jose Chronic pain syndrom e G89.4 [facility] [address] [place], [place] [id number] 04/03/2025 R Kuldeep Jose Chronic pain syndrom e G89.4 [facility] [address] [place], [place] [id number] 04/03/2025 R Kuldeep Jose [facility] [address] [place] [id number] 04/06/2025 R Kuldeep Jose [facility] [address] [place] [id number] 05/01/2025 R Kuldeep Jose Chronic pain syndrom e G89.4 [facility] [address] [place], [place] [id number] 05/03/2025 R Kuldeep Jose [facility] [address] [place], [place] [id number] 05/05/2025 R Kuldeep Jose Assessments Encounter Date Diagnosis (ICD Code) Assessment Notes Treatment Notes Treatment Clinical Notes Section Notes 06/02/2024 Chronic pain syndrome (ICD-10 - G89.4) 06/02/2024 RLS (restless legs syndrome) (ICD-10 - G25.81) 07/05/2024 Chronic pain syndrome (ICD-10 - G89.4) 07/26/2024 Chronic pain syndrome (ICD-10 - G89.4) 07/26/2024 Chronic pain syndrome (ICD-10 - G89.4) 08/02/2024 Chronic pain syndrome (ICD-10 - G89.4) 08/02/2024 RLS (restless legs syndrome) (ICD-10 - G25.81) 08/12/2024 Chronic pain syndrome (ICD-10 - G89.4) 08/29/2024 Chronic pain syndrome (ICD-10 - G89.4) 09/05/2024 Chronic pain syndrome (ICD-10 - G89.4) 09/28/2024 Chronic pain syndrome (ICD-10 - G89.4) 10/04/2024 Chronic pain syndrome (ICD-10 - G89.4) 10/04/2024 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) 10/28/2024 Chronic pain syndrome (ICD-10 - G89.4) 10/31/2024 Chronic pain syndrome (ICD-10 - G89.4) 12/01/2024 Chronic pain syndrome (ICD-10 - G89.4) 12/30/2024 Chronic pain syndrome (ICD-10 - G89.4) 01/31/2025 Chronic pain syndrome (ICD-10 - G89.4) 02/02/2025 Chronic pain syndrome (ICD-10 - G89.4) 03/01/2025 Chronic pain syndrome (ICD-10 - G89.4) 03/31/2025 Chronic pain syndrome (ICD-10 - G89.4) 04/03/2025 Chronic pain syndrome (ICD-10 - G89.4) 04/04/2025 DJD (degenerative joint disease) of knee (ICD-10 - M17.9) 04/04/2025 Chronic pain syndrome (ICD-10 - G89.4) 04/04/2025 HTN (hypertension) (ICD-10 - I10) 04/04/2025 Dyslipidemia (ICD-10 - E78.5) 05/01/2025 Chronic pain syndrome (ICD-10 - G89.4) 04/04/2025 GERD (gastroesophageal reflux disease) (ICD-10 - K21.9) 02/02/2025 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) 12/01/2024 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) 10/04/2024 Dyslipidemia (ICD-10 - E78.5) 08/02/2024 HTN (hypertension) (ICD-10 - I10) 06/02/2024 HTN (hypertension) (ICD-10 - I10) 06/02/2024 Dyslipidemia (ICD-10 - E78.5) 08/02/2024 Dyslipidemia (ICD-10 - E78.5) 10/04/2024 RLS (restless legs syndrome) (ICD-10 - G25.81) 12/01/2024 DJD (degenerative joint disease) of knee (ICD-10 - M17.9) 02/02/2025 DJD (degenerative joint disease) of knee (ICD-10 - M17.9) 04/04/2025 RLS (restless legs syndrome) (ICD-10 - G25.81) 04/04/2025 ASCVD (arteriosclerotic cardiovascular disease) (ICD-10 - I25.10) 10/04/2024 HTN (hypertension) (ICD-10 - I10) 08/02/2024 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) 06/02/2024 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) 06/02/2024 DJD (degenerative joint disease) of knee (ICD-10 - M17.9) 08/02/2024 DJD (degenerative joint disease) of knee (ICD-10 - M17.9) 10/04/2024 DJD (degenerative joint disease) of knee (ICD-10 - M17.9) 04/04/2025 Generalized osteoarthritis (ICD-10 - M15.9) 04/04/2025 Prostate cancer screening (ICD-10 - Z12.5) 10/04/2024 Tobacco use disorder (ICD-10 - F17.200) 08/02/2024 Tobacco use disorder (ICD-10 - F17.200) 10/04/2024 ASCVD (arteriosclerotic cardiovascular disease) (ICD-10 - I25.10) 10/04/2024 GERD (gastroesophageal reflux disease) (ICD-10 - K21.9) 10/04/2024 BMI 40.0-44.9, adult (ICD-10 - Z68.41) 10/04/2024 Morbid obesity (ICD-10 - E66.01) Plan Of Treatment Pending Test Test Name Order Date H-Lipid Panel 10/04/2024 H-CMP 10/04/2024 Next Appt Details Provider Name:Imani Beaulieu, 06/06/2025 11:30:00 AM, [address], [address], [place], [phone], Provider Name:Imani Beaulieu, 10/03/2025 11:45:00 AM, [address], [address], [place], [phone], Insurance Providers Payer Name Payer Address Payer Phone Subscriber Number Group Number Insured Name Patient Relationship to Insured Coverage Start Date Coverage End Date [employer] [address] [place] [address] [id number] Brian Dyer Self - patient is the insured MEDICARE PART B [address] [address] [place] [id number] Brian Dyer Self - patient is the insured Medical (General) History Medical History History ICD Code Esophageal reflux duodenitis congenital right hip dislocation with ch ronic pain restless leg syndrome hypertriglyceridemia HBP 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 work-related right knee injury which resulted in knee replacement in 2000. This subsequently exacerbated a congenital right hip disorder. Retinal artery occlusion - 01/2021 ASCVD Surgical History Surgery Date(Month/Year) TKA-right 2000 right knee arthroscopic 2003 prostate biopsy - negative/ Dr. Herron 2015 prostate biospy - benign/ Dr. Herron 07/21 18 heart cath/ Rajat/ stent x 1 10/23/21 CABG - [facility] 11/2021 Reconstruction Surgery of the Right Hip and pelvis/ [facility] 08/22/2022 Hospitalization History Reason Date(Month/Year) high blood pressure 2002 [facility] ER-bells palsy 11/2012
--- OUTSIDE RECORDS SUMMARY | 2025-05-16 11:46 | XMS_ITS | Clinical Summary ---
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 2 Active loratadine (Claritin) 10 MG tablet Take 10 mg by mouth if needed. 2 Active morphine CR (MS Contin) 15 MG 12 hr tablet Take 15 mg by mouth 2 (two) times a day. 2 Active omeprazole (PriLOSEC) [address] capsule Take 40 mg by mouth 1 (one) time each day in the morning. 2 Active rosuvastatin (Crestor) 40 MG tablet Take 1 tablet (40 mg total) by mouth every night. 30 tablet 2 2 Active isosorbide mononitrate ER (Imdur) 30 MG 24 hr tablet Take 1 tablet (30 mg total) by mouth 1 (one) time each day. Do not crush or chew. 30 tablet 2 2 Active metoprolol succinate XL (Toprol-XL) 25 MG 24 hr tablet Take 37.5 mg by mouth 2 (two) times a day. Do not crush or chew. Active acetaminophen (Tylenol Extra Strength) 500 MG tablet Take 2 tablets (1,000 mg total) by mouth every 8 (eight) hours. 100 tablet 3 Active methocarbamol (Robaxin) 500 MG tablet Take 1 tablet (500 mg total) by mouth 3 (three) times a day if needed for muscle spasms. 30 tablet 3 Active tiZANidine (Zanaflex) 4 MG tablet Take 0.5 tablets (2 mg total) by mouth every 6 (six) hours if needed for muscle spasms for up to 10 days. 30 tablet 3 Active Additional Information Patient not taking.Reported on 09/30/2022 rOPINIRole (Requip) 0.5 MG tablet Take 0.5 mg by mouth every night. 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 Acute postoperative anemia due to expected blood loss 12/04/2021 Obesity (BMI 30-39.9) 10/31/2021 Closed fracture of right hip 10/31/2021 Coronary artery disease 10/29/2021 Hypertension 10/29/2021 Hyperlipidemia 10/29/2021 Anxiety 10/29/2021 GERD (gastroesophageal reflux disease) 2 Resolved Problems Problem Noted Date Diagnosed Date Resolved Date KARINA (acute kidney injury) 12/10/2021 Leukocytosis 12/10/2021 12/11/2021 Hypermagnesemia 12/10/2021 12/11/2021 Hypernatremia 12/10/2021 12/11/2021 Hypokalemia 12/10/2021 12/11/2021 Hypophosphatemia 12/10/2021 12/11/2021 Chronic hip pain, right 12/10/2021 09/2 06/2024 Feeding difficulty in adult 12/06/2021 12/07/2021 Overview (12/06/2021): -NPO -FEES ordered -DHT ordered Immunizations Immunization Administration Dates Next Due Tdap 07/17/2021 Family History Medical History Relation Name Comments Diabetes Father Heart attack Father Pancreatitis Mother Anesthesia problems Neg Hx Malig Hyperthermia Neg Hx Relation Name Status Comments Father Mother Social History Tobacco Use Types Packs/Day Years Used Date Smoking Tobacco: Every Day Cigarettes 1.5 45 Smokeless Tobacco: Never Tobacco Cessation:Ready to Q uit: Not Asked; Counseling Given: Not Answered Comments:Currently 1 ppd. Alcohol Use Standard Drinks/Week Comments Never 0 (1 standard drink = 0.6 oz pur e alcohol) CAGE ASSESSMENT Answer Date Recorded Cage unable to access Not on file 08/22/2022 Cage max number of drinks Not on file 2022 Cage Beverages a week Not on file 08/22/2022 Have you ever felt you should CUT down on your d rinking? 0 08/22/2022 Have you been ANNOYED by people criticizing your drinking? 0 08/22/2022 Have you felt GUILTY about your drinking? 0 08/22/2022 Have you had a drink first t ingrid in the morning (EYE-OUTSOLE BEVELER) to steady your nerves or to get rid of a hangover? 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 Not on file Not on file Not on file Last Filed Vital Signs Vital Sign Reading Time Taken Comments Blood Pressure 151/76 11/11/2022 1:52 PM EDT Pulse 74 11/11/2022 1:52 PM EDT Temperature 37.2 C (98.9 F) 08/25/2022 11:29 AM EDT Respiratory Rate 18 08/24/2022 3:05 AM EDT Oxygen Saturation 95% 08/25/2022 11:29 AM EDT Inhaled Oxygen Concentration - - Weight 125 kg (275 lb 9.2 oz) 11/11/2022 1:52 PM EDT Height 182.9 cm (6') 11/11/2022 1:52 PM EDT Body Mass Index 37.37 11/11/2022 1:52 PM EDT Plan of Treatment Health Maintenance Due Date Last Done Comments [facility]-Depression Screening 1962 [facility]-HIV Screening 1962 [facility]-Hepatitis C Screening 1962 [facility]-Medicare Annual Wellness (AWV) 1962 [facility]-Infant/Child/Adol SDOH Screenings 1962 [facility]- SDOH Screenings 1980 [facility]-Adult SDOH Screenings 1980 [facility]-Pneumococcal Vaccine: 50+ Years (1 of 2 - PCV) 1981 CT Colonography 2007 Colonoscopy 2007 FIT-DNA 2007 FIT 2007 FOBT 2007 Sigmoidoscopy 2007 [facility]-Colorectal Cancer Screening 2007 Lung Cancer Screening Shared Decision Making 2012 [facility]-Lung Cancer Screening 2012 [facility]-Zoster Vaccines (1 of 2) 2012 [id number] Vaccine (1 - 2024- season) 2025 [facility]-Influenza Vaccine (#1) 2025 [facility]-DTaP,Tdap,and Td Vaccines (2 - Td or Tdap) 07/17/2031 07/17/2021 [facility]-RSV Vaccine: 60+ Years or (1 - 1-dose 75+ series) 2037 [facility]-Diabetes: Hemoglobin A1C Discontinued 08/07/2022, 12/10/2021 [facility]-Obesity Intervention Completed 023, 09/30/2022, 09/09/2022, Additional history exists HPV Vaccines (No Doses Required) Completed [facility]-HIB Vaccines Aged Out No longer e ligible based on patient's age to complete this topic [facility]-Hepatitis A Vaccines Aged Out No longer eligible based on patient's age to complete this topic [facility]-IPV Vaccines Aged Out No longer e ligible based on patient's age to complete this topic [facility]-Rotavirus Vaccines Aged Out No lo nger eligible based on patient's age to complete this topic Medical Devices Implanted Type Area Manager Sales Training Device Identifier Shelf Expiration Date Model / Serial / Lot Shell Modular Redapt 62mm - [id number] Implanted:Qty: 1 on 08/22/2022 by Paul Orozco MD at [facility] Right: Hip [employer]-[id number] 01/11/2032 [id number] / / [id number] Chg Head Oxin Mod Fem 44m - [id number] Implanted:Qty: 1 on 08/22/2022 by Paul Orozco MD at [facility] Right: Hip [employer]-[id number] 09/02/2031 [id number] / / [id number] Chg Sleeve Tit Mod Neck -4 - [id number] Implanted:Qty: 1 on 08/22/2022 by Paul Orozco MD at [facility] Right: Hip [employer]-[id number] 09/10/2031 [id number] / / [id number] Chg Screw Redapt Lock 20mm - [id number] Implanted:Qty: 1 on 08/22/2022 by Paul Orozco MD at [facility] Right: Hip [employer]-[id number] 01/29/2032 [id number] / / [id number] Chg Screw Ref Spher Head 35mm - [id number] Implanted:Qty: 1 on 08/22/2022 by Paul Orozco MD at [facility] Right: Hip [employer]-[id number] 02/26/2032 [id number] / / [id number] Liner R3 Xlpe Liner 44mm Id X 62 Od - [id number] Implanted:Qty: 1 on 08/22/2022 by Paul Orozco MD at [facility] Right: Hip [employer]-[id number] 04/20/2031 [id number] / / [id number] Chg Screw Ref Spher Head 25mm - [id number] Implanted:Qty: 1 on 08/22/2022 by Paul Orozco MD at [facility] Right: Hip [employer]-[id number] 03/14/2032 [id number] / / [id number] Chg Screw Ref Spher Head 25mm - [id number] Implanted:Qty: 1 on 08/22/2022 by Paul Orozco MD at [facility] Right: Hip [employer]-[id number] 03/14/2032 [id number] / / [id number] Chg Screw Ref Spher Head 15mm - [id number] Implanted:Qty: 1 on 08/22/2022 by Paul Orozco MD at [facility] Right: Hip [employer]-[id number] 11/28/2031 [id number] / / [id number] Chg Screw Redapt Lock 20mm - [id number] Implanted:Qty: 2 on 08/22/2022 by Paul Orozco MD at [facility] Right: Hip [employer]-[id number] 01/07/2032 [id number] / / [id number] Chg Screw Redapt Lock 15mm - [id number] Implanted:Qty: 1 on 08/22/2022 by Paul Orozco MD at [facility] Right: Hip [employer]-[id number] 08/18/2031 [id number] / / [id number] Chg Stem Syn Por Plus Santos Ho Sz - [id number] Implanted:Qty: 1 on 08/22/2022 by Paul Orozco MD at [facility] Right: Hip [employer]-[id number] 08/27/2031 [id number] / / [id number] Procedures Procedure Name Priority Date/Time Associated Diagnosis Comments HEMOGLOBIN A1C Routine 08/07/2022 3:00 PM EST Osteoarthritis of right hip, unspecified osteoarthritis type History of obesity from Last 3 Months or Most Recently Relevant to Health Maintenance Results * (ABNORMAL) Hemoglobin A1c (08/07/2022 3:00 PM EST) Hemoglobin A1c 5.9(H) <5.7 % 08/07/2022 6:32 PM EST [facility] Blood Venous blood specimen / Unknown Venipuncture / Unknown 08/07/2022 3:00 PM EST 08/07/2022 3:00 PM EST Narrative [facility] - 08/07/2022 6:32 PM EST HA1C Interpretive Data: Diagnosis of Diabetes: Diabetic > or = 6.5% Pre-diabetic 5.7 to 6.4% Non-diabetic < or = 5.6% Glycemic Targets for Type I and Type II Diabetics: Non- Adults <7.0% Adults <6.0% Children and Adolescents <7.5% Source: [place] [employer]. Standards of medical care in diabetes,2017. Diabetes Care.2017:40 (suppl 1):S1-S135. HbA1c assay performed by an ion-exchange chromatography method that is certified traceable to the DCCT. Paul Orozoc MD LAB BLOOD ORDERABLES Final Resu lt [facility] [address] [place] [address] from Last 3 Months or Most Recently Relevant to Health Maintenance Insurance MEDICARE Member Subscriber Plan / Payer (Ef fective 2003-Present) Name:Brian Dyer Member ID:[id number] Relation to Subscriber:Self Name:Brian Dyer Subscriber ID:[id number] Payer ID:MEDICARE Group ID:Not on file Type:Medicare Address: [address] [employer] MEDICARE Advance Directives * Full Code (Latest Code Status on File) Date Activated Date Inactivated Comments 08/22/2022 1:17 PM 08/25/2022 6:56 PM Question Answer Comments Patient has decision-making capacity? Yes * Full Code Date Activated Date Inactivated Comments 12/04/2021 5:14 PM 12/10/2021 5:53 PM Question Answer Comments Patient has decision-making capacity? Yes Care Teams Open Hearth Worker Relationship Specialty Start Date End Date Ganesh Garcia MD [address] [place] [address] PCP - General 10/29/21 Dionisio Earl MD [address] [place] [address] Referring Physician Cardiology 10/29/21
== END 2025-05-16 15:22 | disposition home or self-care (01) ==
PROVIDERS: Emergency Provider Student in an Organized Health Care Education/Training Program; PCP Family Medicine
DX: M25.552 Pain in left hip (principal); M79.605 Pain in left leg
CPT/HCPCS: 72131; 72192; 73552; 73560; 99284; 99285

== ENCOUNTER 2025-05-30 21:32 | Emergency (ER) | payer MEDICARE, MEDICAID, SELFPAY ==
--- OUTSIDE RECORDS SUMMARY | 2024-02-09 08:45 | XMS_ITS ---
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 Name Role Phone Imani Garcia Primary Care Provider REASON FOR VISIT 2 months Encounters Encounter Location Date Provider Diagnosis [facility] [address] [place] [id number] 02/09/2024 Imani Garcia Plan Of Treatment Next Appt Details Provider Name:Imani Beaulieu, 06/06/2025 11:30:00 AM, [address], [address], [place], [place], [phone], Provider Name:Imani Beaulieu, 10/03/2025 11:45:00 AM, [address], [address], [place], [place], [phone], Progress Notes * GOMEZHuber SHIOB:1960 ( 65 yo M)Acc No.[id number]:02/09/2024 Progress Notes Patient: Brian BRANDON Provider: Imani Garcia M.D. :1960 A ge:63 Y S ex:Male Date:02/09/2024 [address], [phone] Subjective: * Chief Complaints: * 1 . 2 months. * Medical History: Objective: * Vitals: Assessment: Plan: * Treatment: * Images: Billing Information: * Visit Code: * Procedure Codes: * Electronic signature of Imani Garcia MD on 05/30/2025 at 09:54 PM EST Sign off status: Pending * Provider: Imani Garcia M.D. Date: 0 02/09/2024 Generated for Mary hinds/Natalie/Jose on: 1 09:54 PM EST
--- OUTSIDE RECORDS SUMMARY | 2024-04-07 06:00 | XMS_ITS ---
Author Organization [facility] Address [address] [place] [id number] Care Team Providers Care Dental Internship Name Role Phone Imani Garcia Primary Care Provider [phone] Allergies Allergen (clinical drug ingredient) Drug/Non Drug Allergy documented on EMR Reaction Allergy Type Onset Date Status ibuprofen Ibuprofen Unknown Drug Allergy Active pantoprazole Protonix Unknown Drug Allergy Acti ve REASON FOR VISIT 2 months, Needs low dose chest CT, shingles, & flu vaccine Medications Medication SIG (Take, Route, Frequency, Duration) Notes Start Date End Date Status Metoprolol Tartrate 50 MG 1 tab(s) Orall y 2 times a day Active Ezetimibe 10 MG 1 tablet Orally Once a day; Duration: 30 day(s) Active Omeprazole 40 MG 1 cap(s) orally once a day; Duration: 90 days Active Aspirin 325 MG 2 tabs orally once a day Active Isosorbide Mononitrate ER 30 MG 1 tab(s) orally once a day (in the morning) Active MS Contin 15 MG 1 tab(s) orally Two times a day 04/07/2024 Active Benazepril HCl 20 MG 1 tab(s) orally onc e daily Not-Taking Sertraline HCl 50 MG 1 tab(s) orally onc e a day Not-Taking Loratadine 10 MG 1 tab(s) orally once a day; Duration: 30 day(s) Not-Taking Gabapentin 800 MG 1 tab(s) orally 2 ti mes a day; Duration: 30 day(s) 04/07/2024 Active Naproxen 500 mg TAKE ONE TABLET BY MOUTH TWICE DAILY --TAKE WITH FOOD--; Duration: 90 days Active rOPINIRole HCl 0.5 mg take one tablet by mouth every day at bedtime Active Rosuvastatin Calcium 40 MG 1 tab(s) orally once a day; Duration: 90 days Active Vital Signs Blood pressure systolic 130 mm Hg 04/07/20 24 Blood pressure diastolic 78 mm Hg 024 Heart Rate 64 /min 04/07/2024 Height 70 in 04/07/2024 Weight 287.4 lbs 04/07/2024 BMI 41.23 kg/m2 04/07/2024 Encounters Encounter Location Date Provider Diagnosis Susanna [address] [facility] 36 [facility] [address] [place], [place] [id number] 04/07/2024 Imani Garcia RLS (restless legs syndrome) G25.81 ; Chronic pain syndrome G89.4 ; HTN (hypertension) I10 ; Dyslipidemia E78.5 ; 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 and 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.9 Assessments Encounter Date Diagnosis (ICD Code) Assessment Notes Treatment Notes Treatment Clinical Notes Section Notes 04/07/2024 RLS (restless legs syndrome) (ICD-10 - G25.81) 04/07/2024 Chronic pain syndrome (ICD-10 - G89.4) 04/07/2024 HTN (hypertension) (ICD-10 - I10) 04/07/2024 Dyslipidemia (ICD-10 - E78.5) 04/07/2024 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) 04/07/2024 DJD (degenerative joint disease) of knee (ICD-10 - M17.9) Plan Of Treatment Medication Medication Name Sig Start Date Stop Date Notes Omeprazole 40 MG 1 cap(s) orally once a day; Duration: 90 days MS Contin 15 MG 1 tab(s) orally Two times a day 04/07/2024 Gabapentin 800 MG 1 tab(s) orally 2 ti mes a day; Duration: 30 day(s) 04/07/2024 rOPINIRole HCl 0.5 mg take one tablet by mouth every day at bedtime Next Appt Details Follow Up: 2 Months, Reason: Provider Name:Imani Beaulieu, 06/06/2025 11:30:00 AM, [address] [facility] 36 [facility], [address], [place], [place], [id number], Provider Name:Imani Beaulieu, 10/03/2025 11:45:00 AM, [address], [place], [id number], Progress Notes * Huber DYEROB:1960 ( 65 yo M)Acc No.[id number]:04/07/2024 Progress Notes Patient: Brian BRANDON Provider: Imani Garcia M.D. :1960 A ge:63 Y S ex:Male Date:04/07/2024 Address:[address] [place] [address] [address], [place] [id number] Subjective: * Chief Complaints: * 1 . 2 months. 2. Needs low dose chest CT, shingles, & flu vaccine. * HPI: H PI: Patient is here today for a 2 month check up. Pt declines flu vaccine. Pt sts that he has no new concerns or complaints at this time. * ROS: D ERMATOLOGY: no R jesus. n o H abel. G ASTROENTEROLOGY: no N ausea. n o V omiting. U ROLOGY: no D ifficulty urinating. n o B lood in urine. 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 work-related right knee injury which resulted in knee replacement in 2000. 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 * Surgical History: T KA-right 2000, right knee arthroscopic 2003, prostate biopsy - negative/ Dr. Herron 06/2015, prostate biospy - benign/ Dr. Herron 07/2018, heart cath/ Rajat/ stent x 1 10/23/21, CABG - [facility] 11/2021, Reconstruction Surgery of the Right Hip and pelvis/ 08/22/2022. * Hospitalization/Major Diagno stic Procedure: h igh blood pressure 2002, [facility] ER-bells palsy 11/2012. * Family History: F ather: , DM, HTN, heart disease. M other: alive 87 yrs. P aternal Grand Father: DM, heart disease. P aternal Grand Mother: DM, heart disease. M aternal Grand Father: DM, heart disease. M aternal Grand Mother: DM, heart disease. 1 brother(s) , 2 sister(s) . 2 son(s) , 2 daughter(s) . . sister-HLP, children- asthma, daughter-GERD sister-HLP, children- asthma, daughter-GERD. * Social History: C URRENT TOBACCO USE S moking Status: Patient does smoke, packs per day: 1.5, number of cigarettes per day: 25, Since age of: 19, Smoking preference: cigarettes. C affeine: yes, frequency:daily. Exercise: yes. Home smoke detector use: yes. Marital Status: Single, living with partner for 16 yr.. New since last visit: none. Past smoking status: yes, Smoking status: Patient does smoke, Packs per day: 2, Number Cigarettes per day: 40, Since age of: 19, Smoking preference: cigarettes. Occup. exposure: none. Recreational drug use: no. Alcohol: no. Travel ouside [place]: no. * Medications: T aking Ezetimibe 10 MG Tablet 1 tablet Orally Once a day , Taking Metoprolol Tartrate 50 MG Tablet 1 tab(s) Orally 2 times a day , Taking Isosorbide Mononitrate ER 30 MG Tablet Extended Release 24 Hour 1 tab(s) orally once a day (in the morning) , Taking Aspirin 325 MG Tablet 2 tabs orally once a day , Taking Gabapentin 800 MG Tablet 1 tab(s) orally 2 times a day , Taking Omeprazole 40 MG Capsule Delayed Release 1 cap(s) orally once a day , Taking rOPINIRole HCl 0.5 mg Tablet take one tablet by mouth every day at bedtime , Taking Rosuvastatin Calcium 40 MG Tablet 1 tab(s) orally once a day , Taking Naproxen 500 mg Tablet TAKE ONE TABLET BY MOUTH TWICE DAILY --TAKE WITH FOOD-- , Taking MS Contin 15 MG Tablet Extended Release 1 tab(s) orally Two times a day , Not-Taking Loratadine 10 MG Tablet 1 tab(s) orally once a day , Not-Taking Sertraline HCl 50 MG Tablet 1 tab(s) orally once a day , Not-Taking Benazepril HCl 20 MG Tablet 1 tab(s) orally once daily , Medication List reviewed and reconciled with the patient * Allergies: P rotonix, Ibuprofen. Objective: * Vitals: W t:287.4, Temp:98.5, BP:130/78, HR:64, O2 Sat:98% on RA, Nurse:ELI, Ht: 70, BMI:41.23. * Examination: G eneral Examination: General Appearance: N AD at rest. N jessica: s upple, no lymphadenopathy, no carotid bruits. H eart: R SR. L ungs: c lear to auscultation.?Extremities: n o edema. Ambultes with a limp. Assessment: * Assessment: 1. R LS (restless legs syndrome) - G25.81 (Primary) 2 . C hronic pain syndrome - G89.4 3 . H TN (hypertension) - I10 4 . D yslipidemia - E78.5 5 . C ongenital dislocation of right hip - Q65.01 6 . DJD (degenerative joint disease) of knee - M17.9 Plan: * Treatment: 2. C hronic pain syndrome Refill MS Contin Tablet Extended Release, 15 MG, 1 tab(s), orally, Two times a day, 60, Refills 0.? 3. O thers Refill Gabapentin Tablet, 800 MG, 1 tab(s), orally, 2 times a day, 30 day(s), 60 Tablet, Refills 5;?Refill Omeprazole Capsule Delayed Release, 40 MG, 1 cap(s), orally, once a day, 90 days, 90 Capsule, Refills 1. * Procedure Codes: 9 4760 PULSE OX * Follow Up: 2 Months * Images: Billing Information: * Visit Code: 56082 Office Visit, Est Pt., Level 3. * Procedure Codes: 31915 PULSE OX. * Electronic signature of Imani Garcia MD on 05/30/2025 at 09:52 PM EST Sign off status: Pending * Provider: Imani Garcia M.D. Date: 06/07/2023 Generated for Mary hinds/Natalie/Jose on: 09:52 PM EST History and Physical Notes * HPI (History of Present Illness) Category Sub-Category Detail Notes Category Not es HPI Patient is here today for a 2 mo [facility] check up. Pt declines flu vaccine. Pt sts that he has no new concerns or complaints at this time Examination Category Sub-Category Detail Notes Category Not es General Examination Heart: RSR Lungs: clear to auscultatio n Extremities: no edema. Ambultes w ith a limp General Appearance: NAD at rest Neck: supple, no lymphaden opathy, no carotid bruits
--- OUTSIDE RECORDS SUMMARY | 2024-06-02 05:15 | XMS_ITS ---
Author Organization [facility] Address [address] [place] [id number] Care Team Providers Care Warehouse Puller Name Role Phone Imani Garcia Primary Care [...] Duration) Notes Start Date End Date Status Benazepril HCl 20 MG 1 tab(s) orally onc e daily Not-Taking MS Contin 15 MG 1 tab(s) orally Two times a day 06/02/2024 Active rOPINIRole HCl 0.5 mg take one tablet by mouth every day at bedtime Active Gabapentin 800 MG 1 tab(s) orally 2 ti mes a day; Duration: 30 day(s) 04/07/2024 Active Omeprazole 40 MG 1 cap(s) orally once a day; Duration: 90 days Active Aspirin 325 MG 2 tabs orally once a day Active Rosuvastatin Calcium 40 MG 1 tab(s) orally once a day; Duration: 90 days Active Naproxen 500 mg TAKE ONE TABLET BY MOUTH TWICE DAILY --TAKE WITH FOOD--; Duration: 90 days Active Loratadine 10 MG 1 tab(s) orally once a day; Duration: 30 day(s) Not-Taking Sertraline HCl 50 MG 1 tab(s) orally onc e a day Not-Taking Ezetimibe 10 MG 1 tablet Orally Once a day; Duration: 30 day(s) Active Metoprolol Tartrate 50 MG 1 tab(s) Orall y 2 times a day Active Isosorbide Mononitrate ER 30 MG 1 tab(s) orally once a day (in the morning) Active Vital Signs Blood pressure systolic 140 mm Hg 06/02/19 25 Blood pressure diastolic 80 mm Hg 025 Heart Rate 59 /min 06/02/2024 Height 70 in 06/02/2024 Weight 280.4 lbs 06/02/2024 BMI 40.23 kg/m2 06/02/2024 Encounters Encounter Location Date Provider Diagnosis Susanna [address] [place] [address] [address] [facility] [address] [place], [place] [id number] 06/02/2024 Imani Garcia RLS (restless legs syndrome) G25.81 ; Chronic pain syndrome G89.4 ; HTN (hypertension) I10 ; Dyslipidemia E78.5 ; 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 and 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.9 Assessments Encounter Date Diagnosis (ICD Code) Assessment Notes Treatment Notes Treatment Clinical Notes Section Notes 06/02/2024 RLS (restless legs syndrome) (ICD-10 - G25.81) 06/02/2024 Chronic pain syndrome (ICD-10 - G89.4) 06/02/2024 HTN (hypertension) (ICD-10 - I10) 06/02/2024 Dyslipidemia (ICD-10 - E78.5) 06/02/2024 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) 06/02/2024 DJD (degenerative joint disease) of knee (ICD-10 - M17.9) Plan Of Treatment Medication Medication Name Sig Start Date Stop Date Notes MS Contin 15 MG 1 tab(s) orally Two times a day 06/02/2024 rOPINIRole HCl 0.5 mg take one tablet by mouth every day at bedtime Next Appt Details Follow Up: 2 Months, Reason: Provider Name:Imani Beaulieu, 06/06/2025 11:30:00 AM, [address] [place] [address] 36 [facility], [facility] [address], [place], [id number], Provider Name:Imani Beaulieu, 10/03/2025 11:45:00 AM, [address] [place] [address] [address], [place], [place], [id number], Progress Notes * Huber DYEROB:1960 ( 65 yo M)Acc No.[id number]:06/02/2024 Progress Notes Patient: Brian BRANDON Provider: Imani Garcia M.D. :1960 A ge:64 Y S ex:Male Date:06/02/2024 Address:[address] [place] [address], [place], [facility] Subjective: * Chief Complaints: * 1 . 2 months. 2. Needs low dose chest CT, shingles, & flu vaccine. * HPI: H ip/Thigh: 64 year old male presents with c/o hip pain T he pt states his right hip and knee pain has gotten worse with the cold weather. Pt states he is needing refills sent to clinic pharmacy. * ROS: D ERMATOLOGY: no R jesus. n o H abel. G ASTROENTEROLOGY: no N ausea. n o V omiting. n o D iarrhea.? U ROLOGY: no D ifficulty urinating. n [...] Surgery of the Right Hip and pelvis/ [facility] 08/22/2022. * Hospitalization/Major Diagno stic Procedure: h igh blood pressure 2002, [facility] ER-bells palsy 11/2012. * Family History: F ather: , DM, HTN, heart disease. M other: alive 88 yrs. P aternal Grand Father: DM, heart disease. P aternal Grand Mother: DM, heart disease. M aternal Grand Father: DM, heart disease. M harry Grand Mother: DM, heart disease. 1 brother(s) [...] ouside [place]: no. * Medications: T aking Gabapentin 800 MG Tablet 1 tab(s) orally 2 times a day , Taking Omeprazole 40 MG Capsule Delayed Release 1 cap(s) orally once a day , Taking rOPINIRole HCl 0.5 mg Tablet take one tablet by mouth every day at bedtime , Taking Ezetimibe 10 MG Tablet 1 tablet Orally Once a day , Taking Metoprolol Tartrate 50 MG Tablet 1 tab(s) Orally 2 times a day , Taking Isosorbide Mononitrate ER 30 MG Tablet Extended Release 24 Hour 1 tab(s) orally once a day (in the morning) , Taking Aspirin 325 MG Tablet 2 tabs orally once a day , Taking Rosuvastatin Calcium 40 MG Tablet 1 tab(s) orally once a day , Taking Naproxen 500 mg Tablet TAKE ONE TABLET BY MOUTH TWICE DAILY --TAKE WITH FOOD-- , Taking MS Contin 15 MG Tablet Extended Release 1 tab(s) orally Two times a day , Notes to Pharmacist: G89.4 Chronic Pain Syndrome, M54.9 Back Pain, Not-Taking Loratadine 10 MG Tablet 1 tab(s) orally once a day , Not-Taking Sertraline HCl 50 MG Tablet 1 tab(s) orally once a day , Not-Taking Benazepril HCl 20 MG Tablet 1 tab(s) orally once daily , Medication List reviewed and reconciled with the patient * Allergies: P rotonix, Ibuprofen. Objective: * Vitals: W t:280.4, Temp:97.8, BP:140/80, HR:59, Nurse:MARILEE, Ht: 70, BMI:40.23. * Examination: G eneral Examination: General Appearance: N AD. H EENT: sclera and conjunctiva clear, TM's normal, translucent. O ral cavity: E dentulous, no oral lesions. N jessica: s upple, no lymphadenopathy. H eart: R SR. L ungs: g enerally diminished BS. N o wheezes.. E xtremities: t race PTE. Chronic deformity of knees.. ? Assessment: * Assessment: 1. R LS (restless [...] Two times a day, 60, Refills 0.? * Follow Up: 2 Months * Images: Billing Information: * Visit Code: 13250 Office Visit, Est Pt., Level 3. * Procedure Codes: * Electronic signature of Imani Garcia MD on 05/30/2025 at 09:54 PM EST Sign off status: Pending * Provider: Imani Garcia M.D. Date: 0 06/02/2024 Generated for Mary hinds/Natalie/Daniellesmitting on: 1 09:54 PM EST History and Physical Notes * HPI (History of Present Illness) Category Sub-Category Detail Notes Category Not es Hip/Thigh hip pain The pt states hi s right hip and knee pain has gotten worse with the cold weather. Pt states he is needing refills sent to clinic pharmacy Examination Category Sub-Category Detail Notes Category Not es General Examination HEENT: sclera and c onjunctiva clear, TM's normal, translucent Heart: RSR Lungs: generally diminished BS. No wheezes. Abdomen: Extremities: trace PTE. Chronic d eformity of knees. General Appearance: NAD Neck: supple, no lymphaden opathy Oral cavity: Edentulous, no oral lesions
--- OUTSIDE RECORDS SUMMARY | 2024-08-02 05:00 | XMS_ITS ---
[facility] Address [address] [place] [phone] Care Team Providers Care Tar Man Name Role Phone Imani Garcia Primary Care [...] W/U Status Risk Notes Problem Tobacco use (055336340) Tobacco use disorder (F17.200) Active confirmed Vital Signs Blood pressure systolic 138 mm Hg 08/03/19 25 Blood pressure diastolic 78 mm Hg 025 Heart Rate 73 /min 08/02/2024 Height 70 in 08/02/2024 Weight 279.2 lbs 08/02/2024 BMI 40.06 kg/m2 08/02/2024 Encounters Encounter Location Date Provider Diagnosis [place] [address] [facility] [address] [place] [phone] 08/02/2024 Imani Garcia RLS (restless legs syndrome) [address], [place], [phone], Provider Name:Imani Maza jacob, 10/03/2025 11:45:00 AM, [address] [facility] [address], [address], [place], [phone], Progress Notes * [place] DYEROB:1960 ( 65 yo M)Acc No.[id number]:08/02/2024 Progress Notes Patient: Brian BRANDON Provider: Imani Garcia M.D. :1960 A ge:64 Y S ex:Male Date:08/02/2024 Address:[address] [place] [address] [address], [id number] Subjective: * Chief Complaints: * 1 . [...] stic Procedure: h igh blood pressure 2002, [facility] ER-bells palsy 11/2012. * Family [...] * Images: Billing Information: * Visit Code: 81761 Office Visit, Est Pt., Level 3. * Procedure Codes: 3075F SYST BP GE 130 - 139MM HG. 3078F DIAST BP < 80 MM HG. * Electronic signature of Imani Garcia MD on 05/30/2025 at 09:52 PM EST Sign off status: Pending * Provider: Imani Garcia M.D. Date: 0 08/02/2024 Generated for Mary hinds/Natalie/Jose on: 1 09:52 PM EST History and Physical Notes * Examination Category Sub-Category Detail Notes Category Not es General Examination Heart: RSR Lungs: Coarse breath sounds with occasional rhonchi Extremities: Mild swelling around the right knee. Ambultes with a limp General Appearance: NAD at rest Neck: supple, no lymphaden opathy, no carotid bruits
--- OUTSIDE RECORDS SUMMARY | 2024-10-04 04:15 | XMS_ITS ---
Author Organization [facility] Address [address] [place] [phone] Care Team Providers Care Hand Binder Cutter Name Role Phone Imani Garcia Primary Care Provider Allergies Allergen (clinical drug ingredient) Drug/Non Drug Allergy documented on EMR Reaction Allergy Type Onset Date Status ibuprofen Ibuprofen Unknown Drug Allergy Active pantoprazole Protonix Unknown Drug Allergy Acti ve REASON FOR VISIT 2 month ckup, Needs labs with PSA & shingles vaccine Medications Medication SIG (Take, Route, Frequency, Duration) Notes Start Date End Date Status Aspirin 81 MG 1 tablet orally once a day Active Isosorbide Mononitrate ER 30 MG 1 tab(s) orally once a day (in the morning) Active Rosuvastatin Calcium 40 mg TAKE ONE TABL ET BY MOUTH EVERY DAY; Duration: 90 Active Naproxen 500 mg TAKE ONE TABLET BY M OUTH TWICE DAILY --TAKE WITH FOOD--; Duration: 90 Active rOPINIRole HCl 1 MG 1 tablet Orally At B ed Time Active Omeprazole 40 MG 1 cap(s) orally once a day; Duration: 90 days Active Gabapentin 800 MG 1 tab(s) orally 2 ti mes a day; Duration: 30 day(s) 10/04/2024 Active Metoprolol Tartrate 50 MG 1 tab(s) Orall y 2 times a day Active Ezetimibe 10 MG 1 tablet Orally Once a day; Duration: 30 day(s) Active MS Contin 15 MG 1 tab(s) orally Two times a day 09/29/2024 Active Problems Problem Type SNOMED Code ICD Code Onset Dates Problem Status W/U Status Risk Notes Problem Gastroesophageal reflux disease (371146180) GERD (gastroesop hageal reflux disease) (K21.9) Active confirmed Problem Body mass index 40+ - morbidly obese (423197196) BMI 40.0-44.9, adult (Z68.41) Active confirmed Problem Morbid obesity (184675385) Morbid obesity (E66.01) Active confirmed Vital Signs Blood pressure systolic 124 mm Hg 10/05/19 25 Blood pressure diastolic 70 mm Hg 025 Heart Rate 60 /min 10/04/2024 Height 70 in 10/04/2024 Weight 281.6 lbs 10/04/2024 BMI 40.4 kg/m2 10/04/2024 Encounters Encounter Location Date Provider Diagnosis [facility] [address] [facility] [address] [place], [place] [address], [place] [phone] 10/04/2024 Imani Garcia Chronic pain syndrom e G89.4 ; 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 ; Dyslipidemia E78.5 ; RLS (restless legs syndrome) G25.81 ; HTN (hypertension) I10 ; 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.9 ; Tobacco use disorder F17.200 ; ASCVD (arteriosclerotic cardiovascular disease) I25.10 ; GERD (gastroesophageal reflux disease) K21.9 ; BMI 40.0-44.9, adult Z68.41 and Morbid obesity E66.01 Assessments Encounter Date Diagnosis (ICD Code) Assessment Notes Treatment Notes Treatment Clinical Notes Section Notes 10/04/2024 Chronic pain syndrome (ICD-10 - G89.4) 10/04/2024 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) 10/04/2024 Dyslipidemia (ICD-10 - E78.5) 10/04/2024 RLS (restless legs syndrome) (ICD-10 - G25.81) 10/04/2024 HTN (hypertension) (ICD-10 - I10) 10/04/2024 DJD (degenerative joint disease) of knee (ICD-10 - M17.9) 10/04/2024 Tobacco use disorder (ICD-10 - F17.200) 10/04/2024 ASCVD (arteriosclerotic cardiovascular disease) (ICD-10 - I25.10) 10/04/2024 GERD (gastroesophageal reflux disease) (ICD-10 - K21.9) 10/04/2024 BMI 40.0-44.9, adult (ICD-10 - Z68.41) 10/04/2024 Morbid obesity (ICD-10 - E66.01) Plan Of Treatment Medication Medication Name Sig Start Date Stop Date Notes Omeprazole 40 MG 1 cap(s) orally once a day; Duration: 90 days Gabapentin 800 MG 1 tab(s) orally 2 ti mes a day; Duration: 30 day(s) 10/04/2024 Pending Test Test Name Order Date H-Lipid Panel 10/04/2024 H-CMP 10/04/2024 Next Appt Details Follow Up: 2 Months, Reason: Provider Name:Imani Beaulieu, 06/06/2025 11:30:00 AM, [address] [facility] [address] [facility], [address], [place], [phone], Provider Name:Imani Beaulieu, 10/03/2025 11:45:00 AM, [address] [place] [address], [address], [place], [phone], Progress Notes * GOMEZ GauravMatheusOB:1960 ( 65 yo M)Acc No.[id number]:10/04/2024 Progress Notes Patient: Brian BRANDON Provider: Imani Garcia M.D. :1960 A ge:64 Y S ex:Male Date:10/04/2024 Address:[address] [place] [address], [place] [id number] Subjective: * Chief Complaints: * 1 . 2 month ckup. 2. Needs labs with PSA & shingles vaccine. * HPI: C ardiology: The pt is here for a 2 month check up. Hip pain is about the same. Denies : Chest Pain. D enies : Short of Breath. D enies : Dizziness. D enies : Palpitations. * ROS: D ERMATOLOGY: no R jesus. [...] stic Procedure: h igh blood pressure 2002, [facility] ER-bells palsy 11/2012. * Family History: F [...] day (in the morning) , Taking Aspirin 81 MG Tablet Delayed Release 1 tablet orally once a day , Taking rOPINIRole HCl 1 MG Tablet 1 tablet Orally At Bed Time , Taking Naproxen 500 mg Tablet TAKE ONE TABLET BY MOUTH TWICE DAILY --TAKE WITH FOOD-- , Taking Rosuvastatin Calcium 40 mg Tablet TAKE ONE TABLET BY MOUTH EVERY DAY , Taking MS Contin 15 MG Tablet Extended Release 1 tab(s) orally Two times a day , Medication List reviewed and reconciled with the patient * Allergies: P rotonix, Ibuprofen. Objective: * Vitals: W t: 281.6, Temp: 97.8, BP: 124/70, HR: 60, O2 Sat: 99% on RA, Nurse: MARILEE, Ht: 70, BMI:40.4. * Examination: G eneral Examination: General Appearance: N AD at rest. N jessica: s upple, no lymphadenopathy, no carotid bruits. H eart: R SR. L ungs: c lear to auscultation.?Extremities: n o edema. Ambulates with a prominent limp. ? Assessment: * Assessment: 1. C ongenital dislocation of right hip - Q65.01 (Primary) 2 . C hronic pain syndrome - G89.4 3 . D yslipidemia - E78.5 4 . R LS (restless legs syndrome) - G25.81 5 . H TN (hypertension) - I10 6 . DJD (degenerative joint disease) of knee - M17.9 7 . T obacco use disorder - F17.200 8 . A SCVD (arteriosclerotic cardiovascular disease) - I25.10 9 . G ERD (gastroesophageal reflux disease) - K21.9 1 0. B MS 40.0-44.9, adult - Z68.41 1 1. M orbid obesity - E66.01 Plan: * Treatment: 2. G ERD (gastroesophageal reflux disease) Refill Omeprazole Capsule Delayed Release, 40 MG, 1 cap(s), orally, once a day, 90 days, 90 Capsule, Refills 1. * Labs: * L ab: H-Lipid Panel L ab: H-CMP * Procedure Codes: G 2211 Complex e/m visit add on, 3074F SYST BP LT 130 MM HG, 3078F DIAST BP < 80 MM HG * Follow Up: 2 Months * Images: Billing Information: * Visit Code: 45764 Office Visit, Est Pt., Level 3. * Procedure Codes: G2211 Complex e/m visit add on. 3074F SYST BP LT 130 MM HG. 3078F DIAST BP < 80 MM HG. * Electronic signature of Imani Garcia MD on 05/30/2025 at 09:53 PM EST Sign off status: Pending * Provider: Imani Garcia M.D. Date: 0 10/04/2024 Generated for Mary hinds/Natalie/Jose on: 09:53 PM EST History and Physical Notes * HPI (History of Present Illness) Category Sub-Category Detail Notes Category Not es Cardiology Short of Breath Chest Pain Palpitations Dizziness Examination Category Sub-Category Detail Notes Category Not es General Examination Heart: RSR Lungs: clear to auscultatio n Extremities: no edema. Ambulates with a prominent limp General Appearance: NAD at rest Neck: supple, no lymphaden opathy, no carotid bruits
--- OUTSIDE RECORDS SUMMARY | 2024-12-01 06:00 | XMS_ITS ---
Author Organization [facility] Address [address] [place] [id number] Care Team Providers Care Hydrologic Modeler Name Role Phone Imani Garcia Primary Care Provider [phone] Allergies Allergen (clinical drug ingredient) Drug/Non Drug Allergy documented on EMR Reaction Allergy Type Onset Date Status ibuprofen Ibuprofen Unknown Drug Allergy Active pantoprazole Protonix Unknown Drug Allergy Acti ve REASON FOR VISIT 2 months ( workers comp only) Medications Medication SIG (Take, Route, Frequency, Duration) Notes Start Date End Date Status rOPINIRole HCl 1 MG 1 tablet Orally At B ed Time Active Aspirin 81 MG 1 tablet orally once a day Active Isosorbide Mononitrate ER 30 MG 1 tab(s) orally once a day (in the morning) Active Naproxen 500 mg TAKE ONE TABLET BY M OUTH TWICE DAILY - TAKE WITH FOOD-; Duration: 90 Active Rosuvastatin Calcium 40 mg TAKE ONE TABL ET BY MOUTH EVERY DAY; Duration: 90 Active MS Contin 15 MG 1 tab(s) orally Two times a day; Duration: 30 days 12/01/2024 Active Metoprolol Tartrate 50 MG 1 tab(s) Orall y 2 times a day Active Ezetimibe 10 MG 1 tablet Orally Once a day; Duration: 30 day(s) Active Gabapentin 800 MG 1 tab(s) orally 2 ti mes a day Active Omeprazole 40 MG 1 cap(s) orally once a day; Duration: 90 days Active Vital Signs Blood pressure systolic 130 mm Hg 12/02/19 25 Blood pressure diastolic 72 mm Hg 025 Heart Rate 84 /min 12/01/2024 Height 70 in 12/01/2024 Weight 275 lbs 12/01/2024 BMI 39.45 kg/m2 12/01/2024 Encounters Encounter Location Date Provider Diagnosis [facility] [address] [place] [address] [address] [place] [id number] 12/01/2024 Imani Garcia Chronic pain syndrom e G89.4 ; 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 and 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.9 Assessments Encounter Date Diagnosis (ICD Code) Assessment Notes Treatment Notes Treatment Clinical Notes Section Notes 12/01/2024 Chronic pain syndrome (ICD-10 - G89.4) 12/01/2024 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) 12/01/2024 DJD (degenerative joint disease) of knee (ICD-10 - M17.9) Plan Of Treatment Medication Medication Name Sig Start Date Stop Date Notes MS Contin 15 MG 1 tab(s) orally Two times a day; Duration: 30 days 12/01/2024 Gabapentin 800 MG 1 tab(s) orally 2 times a day Next Appt Details Follow Up: 2 Months, Reason: Provider Name:Imani Beaulieu, 06/06/2025 11:30:00 AM, [address] [place] [address], [address], [place], [id number], Provider Name:Imani Beaulieu, 10/03/2025 11:45:00 AM, [address] [place] [address], [facility] [address], [place], [id number], Progress Notes * Huber DYEROB:1960 ( 65 yo M)Acc No.[id number]:12/01/2024 Progress Notes Patient: Brian BRANDON Provider: Imani Garcia M.D. :1960 A ge:64 Y S ex:Male Date:12/01/2024 Address:[facility], [place] Subjective: * Chief Complaints: * 1 . 2 months ( workers comp only). * HPI: H PI: 64 year old male presents with c/o Patient is here today for?Pt is here today for a 2 month check up. Pt sts he is doing well and has no conerns at this time.? * ROS: D ERMATOLOGY: no R jesus. [...] stic Procedure: h igh blood pressure 2002, [facility] ER-bells palsy 11/2012. * Family History: F [...] TAKE ONE TABLET BY MOUTH TWICE DAILY - TAKE WITH FOOD- , Taking Rosuvastatin Calcium 40 mg Tablet TAKE ONE TABLET BY MOUTH EVERY DAY , Taking Gabapentin 800 MG Tablet 1 tab(s) orally 2 times a day , Taking Omeprazole 40 MG Capsule Delayed Release 1 cap(s) orally once a day , Taking MS Contin 15 MG Tablet Extended Release 1 tab(s) orally Two times a day , Medication List reviewed and reconciled with the patient * Allergies: P rotonix, Ibuprofen. Objective: * Vitals: W t: 275, Temp: 97.9, BP: 130/72, HR: 84, O2 Sat: 98% on RA, Nurse: carlyn, Ht: 70, BMI:39.45. * Examination: G eneral Examination: General Appearance: N AD at rest. N jessica: s upple, no lymphadenopathy, no carotid bruits. H eart: R SR. L ungs: c lear to auscultation.?Extremities: n o edema. Ambulates with a prominent limp. Deformity of right knee. No effusion. Assessment: * Assessment: 1. C ongenital dislocation of right hip - Q65.01 (Primary) 2 . C hronic pain syndrome - G89.4 3 . D DARLEEN (degenerative joint disease) of knee - M17.9 ? Plan: * Treatment: * Follow Up: 2 Months * Images: Billing Information: * Visit Code: 64419 Office Visit, Est Pt., Level 3. * Procedure Codes: * Electronic signature of Imani Garcia MD on 05/30/2025 at 09:54 PM EST Sign off status: Pending * Provider: Imani Garcia M.D. Date: 0 12/01/2024 Generated for Mary hinds/Natalie/Taraitting on: 1 09:54 PM EST History and Physical Notes * HPI (History of Present Illness) Category Sub-Category Detail Notes Category Not es HPI Patient is here today for Pt is here today for a 2 month check up. Pt sts he is doing well and has no conerns at this time Examination Category Sub-Category Detail Notes Category Not es General Examination Heart: RSR Lungs: clear to auscultatio n Extremities: no edema. Ambulates with a prominent limp. Deformity of right knee. No effusion General Appearance: NAD at rest Neck: supple, no lymphaden opathy, no carotid bruits
--- OUTSIDE RECORDS SUMMARY | 2025-02-02 05:15 | XMS_ITS ---
Author Organization [facility] Address [address] [facility] [facility] [facility] [address] [place] [id number] Care Team Providers Care Head Field Hockey Coach Name Role Phone Imani Garcia Primary Care Provider [phone] Allergies Allergen (clinical drug ingredient) Drug/Non Drug Allergy documented on EMR Reaction Allergy Type Onset Date Status ibuprofen Ibuprofen Unknown Drug Allergy Active pantoprazole Protonix Unknown Drug Allergy Acti ve REASON FOR VISIT Check up with fasting labs, Needs labs with PSA & shingles vaccine Encounters Encounter Location Date Provider Diagnosis [facility] [address] [facility] [address] [place] [id number] 02/02/2025 Imani Garcia Plan Of Treatment Next Appt Details Provider Name:Imani Beaulieu, 06/06/2025 11:30:00 AM, [address] [facility], [address], [place], [id number], Provider Name:Imani Beaulieu, 10/03/2025 11:45:00 AM, [address] [facility], [address], [place], [id number], Progress Notes * Huber DYEROB:1960 ( 65 yo M)Acc No.[id number]:02/02/2025 Progress Notes Patient: Brian BRANDON Provider: Imani Garcia M.D. :1960 A ge:64 Y S ex:Male Date:02/02/2025 Address:[address], [place] Subjective: * Chief Complaints: * 1 . Check up with fasting labs. 2. Needs labs with PSA & shingles vaccine. * HPI: H PI: 64 year old male presents with c/o Patient is here today for?Pt is here today for a check up and fasting labs. Pt sts he is doing well and has no concerns at this time. * ROS: D ERMATOLOGY: [...] stic Procedure: h igh blood pressure 2002, [facility] ER-bells palsy 11/2012. * Family History: [...] Alcohol: no. Travel ouside [place]: no. * Allergies: P rotonix, Ibuprofen. Objective: * Vitals: Assessment: Plan: * Treatment: * Images: Billing Information: * Visit Code: * Procedure Codes: * Electronic signature of Imani Garcia MD on 05/30/2025 at 09:52 PM EST Sign off status: Pending * Provider: Imani Garcia M.D. Date: 0 02/02/2025 Generated for Mary hinds/Natalie/Taraitting on: 1 09:52 PM EST History and Physical Notes * HPI (History of Present Illness) Category Sub-Category Detail Notes Category Not es HPI Patient is here today for Pt is here today for a check up and fasting labs. Pt sts he is doing well and has no concerns at this time
--- OUTSIDE RECORDS SUMMARY | 2025-02-02 05:15 | XMS_ITS ---
Author Organization [facility] Address [address] [place] [phone] Care Team Providers Care Parking Worker Name Role Phone Imani Garcia Primary Care Provider [phone] Allergies Allergen (clinical drug ingredient) Drug/Non Drug [...] 02/02/2025 Encounters Encounter Location Date Provider Diagnosis [facility] [address] [place] [address] [address] [place] [id number] 02/02/2025 Imani Garcia Chronic pain syndrom e [...] Reason: Provider Name:Imani Beaulieu, 06/06/2025 11:30:00 AM, [address] [place] [address], [address], [place], [id number], Provider Name:Imani Beaulieu, 10/03/2025 11:45:00 AM, [address] [place] [address], [facility] [address], [place], [id number], Progress Notes * Huber DYEROB:1960 ( 65 yo M)Acc No.[id number]:02/02/2025 Progress Notes Patient: Brian BRANDON Provider: Imani Garcia M.D. :1960 A ge:64 Y S ex:Male Date:02/02/2025 Address:[address] [place] [address], [place] Subjective: * Chief Complaints: * 1 . [...] stic Procedure: h igh blood pressure 2002, [facility] ER-bells palsy 11/2012. * Family [...] 59, O2 Sat: 97% on RA, Nurse: [facility], Ht: 70, BMI:38.82. * Examination: G [...] * Images: Billing Information: * Visit Code: 80433 Office Visit, Est Pt., Level 3. * Procedure Codes: * Electronic signature of Imani Garcia MD on 05/30/2025 at 09:52 PM EST Sign off status: Pending * Provider: Imani Garcia M.D. Date: 02/02/2025 Generated for Mary hinds/Natalie/eTransmitting on: 1 09:52 PM EST History and [...]
--- OUTSIDE RECORDS SUMMARY | 2025-04-04 06:45 | XMS_ITS ---
Author Organization [facility] Address [address] [place] [id number] Care Team Providers Care Industrial Psychology Teacher Name Role Phone Imani Garcia Primary Care Provider [phone] Allergies Allergen (clinical drug ingredient) Drug/Non Drug Allergy documented on EMR Reaction Allergy Type Onset Date Status ibuprofen Ibuprofen Unknown Drug Allergy Active pantoprazole Protonix Unknown Drug Allergy Acti ve REASON FOR VISIT Workers comp visit Medications Medication SIG (Take, Route, Frequency, Duration) Notes Start Date End Date Status rOPINIRole HCl 1 MG 1 tablet Orally At B ed Time; Duration: 90 days Active Aspirin 81 MG 1 tablet orally once a day Active Naproxen 500 mg 1 tablet with food o rally twice a day Active Omeprazole 40 MG 1 cap(s) orally once a day; Duration: 90 days Active Rosuvastatin Calcium 40 mg 1 tablet oral ly once a day; Duration: 90 days Active MS Contin 15 MG 1 tab(s) orally Two times a day 04/03/2025 Active Gabapentin 800 MG 1 tab(s) orally 2 ti mes a day; Duration: 30 days 04/04/2025 Active Ezetimibe 10 MG 1 tablet Orally Once a day; Duration: 30 day(s) Active Metoprolol Tartrate 50 MG 1 tab(s) Orall y 2 times a day Active Isosorbide Mononitrate ER 30 MG 1 tab(s) orally once a day (in the morning) Active Vital Signs Blood pressure systolic 132 mm Hg 04/04/20 25 Blood pressure diastolic 80 mm Hg 025 Heart Rate 62 /min 04/04/2025 Height 70 in 04/04/2025 Weight 269.6 lbs 04/04/2025 BMI 38.68 kg/m2 04/04/2025 Encounters Encounter Location Date Provider Diagnosis [facility] [address] [place] [address] [address] [place] [id number] 04/04/2025 Imani Garcia Chronic pain syndrom e G89.4 and 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.9 Assessments Encounter Date Diagnosis (ICD Code) Assessment Notes Treatment Notes Treatment Clinical Notes Section Notes 04/04/2025 Chronic pain syndrome (ICD-10 - G89.4) 04/04/2025 DJD (degenerative joint disease) of knee (ICD-10 - M17.9) Plan Of Treatment Medication Medication Name Sig Start Date Stop Date Notes Naproxen 500 mg 1 tablet with food orally twice a day MS Contin 15 MG 1 tab(s) orally Two times a day 04/03/2025 Gabapentin 800 MG 1 tab(s) orally 2 ti mes a day; Duration: 30 days 04/04/2025 Next Appt Details Follow Up: 2 Months, Reason: Provider Name:Imani Beaulieu, 06/06/2025 11:30:00 AM, [address] [place] [address], [address], [place], [id number], Provider Name:Imani Beaulieu, 10/03/2025 11:45:00 AM, [address] [place] [address], [facility] [address], [place], [id number], Progress Notes * Huber DYEROB:1960 ( 65 yo M)Acc No.[id number]:04/04/2025 Progress Notes Patient: Brian BRANDON Provider: Imani Garcia M.D. :1960 A ge:64 Y S ex:Male Date:04/04/2025 Address:[address] [place] [address], [place] Subjective: * Chief Complaints: * 1 . Workers comp visit. * HPI: H PI: He returns for scheduled follow-up, has chronic right hip and knee pain related to 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 injury. He reports that his pain is manageable on his current dose of medication. No new concerns. * ROS: D ERMATOLOGY: no R jesus. n o H abel. G ASTROENTEROLOGY: no N ausea. n o V omiting. n o D iarrhea.? U ROLOGY: no B lood in urine. n o F requent urination. ? * Medical History: E sophageal reflux, Duodenitis, [...] tablet orally once a day , Taking Omeprazole 40 MG Capsule Delayed Release 1 cap(s) orally once a day , Taking Naproxen 500 mg Tablet 1 tablet with food orally twice a day , Taking Rosuvastatin Calcium 40 mg Tablet 1 tablet orally once a day , Taking rOPINIRole HCl 1 MG Tablet 1 tablet Orally At Bed Time , Taking Gabapentin 800 MG Tablet 1 tab(s) orally 2 times a day , Taking MS Contin 15 MG Tablet Extended Release 1 tab(s) orally Two times a day , Medication List reviewed and reconciled with the patient * Allergies: P rotonix, Ibuprofen. Objective: * Vitals: W t: 269.6, Temp: 98.4, BP: 132/80, HR: 62, O2 Sat: 98% on RA, Nurse: pe, Ht: 70, BMI:38.68. * Examination: G eneral Examination: General Appearance: N AD at rest. H eart: R SR.?Lungs: c lear to auscultation. E xtremities: n o edema. Noted deformity of right knee. No effusion. Walks with a limp. Assessment: * Assessment: 1. D DARLEEN (degenerative joint disease) of knee - M17.9 (Primary) 2 . C hronic pain syndrome - G89.4 Plan: * Treatment: 2. O thers Continue Naproxen Tablet, 500 mg, 1 tablet with food, orally, twice a day. * Follow Up: 2 Months * Images: Billing Information: * Visit Code: 25484 Office Visit, Est Pt., Level 3. * Procedure Codes: * Electronic signature of Imani Garcia MD on 05/30/2025 at 09:53 PM EST Sign off status: Pending * Provider: Imani Garcia M.D. Date: 06/04/2024 Generated for Mary hinds/Natalie/eTransmitting on: 1 09:53 PM EST History and Physical Notes * Examination Category Sub-Category Detail Notes Category Not es General Examination Heart: RSR Lungs: clear to auscultatio n Extremities: no edema. Noted defo rmity of right knee. No effusion. Walks with a limp General Appearance: NAD at rest Neck:
--- OUTSIDE RECORDS SUMMARY | 2025-04-04 06:45 | XMS_ITS ---
Author [facility] Address [address] [place] [phone] Care Team Providers Care Public Health Nutritionist Name Role Phone Imani Garcia Primary Care Provider [phone] Allergies Allergen (clinical drug ingredient) Drug/Non Drug Allergy documented on EMR Reaction Allergy Type Onset Date Status ibuprofen Ibuprofen Unknown Drug Allergy Active pantoprazole Protonix Unknown Drug Allergy Acti ve Results Component Value Reference Range Notes P-Comprehensive Metabolic Pa chaka (CMP) Reviewed date:04/06/2025 08:48:28 AM Interpretation:GFR 48 Performing Lab: Notes/Report: CLIA: [id number] Guanako Chadwick MD, Student Services Representative [address] [place] [address] , [address], [place] [address] Test performed by [facility], [facility] Sodium 143 135-145 mmol/L Potassium 4.3 3.5-5.3 [...] 25 Performing Lab: Notes/Report: Test performed by [facility], [address] , [place] , [place] [address] Guanako Chadwick MD, Student Services Representative CLIA: [id number] Lipid Panel Footnote See Below *Based on optimal reference values. Please refer to the DOS for additional information regarding diagnostic lipid reference ranges, patient management based on the recently updated lipid guidelines ([place] [employer]/[place] [employer] Task Force on Clinical Practice [...] biopsy) Performing Lab: Notes/Report: Test performed by [facility] [address] , [address] , [place] [address] Guanako Chadwick MD, Student Services Representative CLIA: [id number] PSA 9.42 <4.00 ng/mL Please note this is an ultrasensitive PSA assay with a lower limit of detection of 0.014 ng/mL. This test is performed by the [employer] ECLIA methodology. Values obtained with different assay [...] Provider Diagnosis [facility] [address] [facility] [address] [place] [id number] 04/04/2025 Imani Garcia HTN (hypertension) I 10 [...] Provider Name:Imani Beaulieu, 06/06/2025 11:30:00 AM, [address] [facility] 36 [facility], [facility] [address], [place], [phone], Provider Name:Imani Beaulieu, 10/03/2025 11:45:00 AM, [address] [facility] 36 [facility], [facility] [address], [place], [phone], Progress Notes * Dario DYER:1960 ( 65 yo M)Acc No.[id number]:04/04/2025 Progress Notes Patient: Brian BRANDON Provider: Imani Garcia M.D. :1960 A ge:64 Y S ex:Male Date:04/04/2025 Address:[address] [place] [address], [place] [facility] Subjective: * Chief Complaints: * 1 . [...] stic Procedure: h igh blood pressure 2002, [facility] ER-bells palsy 11/2012. * Family History: [...] * Images: Billing Information: * Visit Code: 83211 Office Visit, Est Pt., Level 4. * [...] Date: 06/04/2024 Generated for Mary hinds/Natalie/Taraitting on: 09:52 PM EST History and Physical [...]
--- NOTE | 2025-05-30 21:34 | ED_ITS ---
<Statement entered by Gautam New MD - 05/30/25 23:15> I was consulted by the [facility], and we discussed the complexity of the problems being addressed. I approved the treatment and management plan for this patient's care in the emergency department, thus performing a substantive portion of the medical decision making. Gautam New MD, AMERICO, FACEP Discharge Plan Disposition Patient Disposition: Home, Self-Care Condition: Good Prescriptions Prescriptions: No Action morphine 15 mg tablet extended release 15 mg PO Q12H aspirin [Aspir-81] 81 mg tablet,delayed release (DR/EC) 81 mg PO DAILY gabapentin 400 mg capsule 800 mg PO BID omeprazole 40 mg capsule,delayed release(DR/EC) 40 mg PO DAILY loratadine 10 mg tablet 10 mg PO DAILY PRN (Reason: allergies) Patient Comments: TAKE ONE TABLET BY MOUTH EVERY DAY naproxen sodium [Aleve] 220 mg tablet 220 mg PO BID PRN (Reason: Pain) ropinirole 0.5 mg tablet 0.5 mg PO HS ezetimibe 10 mg tablet See Rx Instructions .ROUTE .COMPLEX Qty: 90 3RF Dose Instruction: TAKE ONE TABLET BY MOUTH EVERY DAY Rx Instructions: TAKE ONE TABLET BY MOUTH EVERY DAY isosorbide mononitrate 30 mg tablet extended release 24 hr See Rx Instructions .ROUTE .COMPLEX Qty: 30 11RF Dose Instruction: TAKE ONE TABLET BY MOUTH EVERY DAY Rx Instructions: TAKE ONE TABLET BY MOUTH EVERY DAY metoprolol succinate 50 mg tablet extended release 24 hr See Rx Instructions .ROUTE .COMPLEX Qty: 180 1RF Dose Instruction: TAKE ONE TABLET BY MOUTH TWICE DAILY FOR HIGH BLOOD PRESSURE Rx Instructions: TAKE ONE TABLET BY MOUTH TWICE DAILY FOR HIGH BLOOD PRESSURE rosuvastatin 20 mg tablet 40 mg PO DAILY albuterol sulfate [Ventolin HFA] 90 mcg/actuation HFA aerosol inhaler 2 puff inhalation Q6H PRN (Reason: shortness of breath or wheezing) Qty: 6.7 0RF methocarbamol 500 mg tablet 500 mg PO BID PRN (Reason: muscle spasm) Qty: 30 0RF Referrals Follow up/Referrals: Ganesh Garcia MD [Primary Care Provider, Medical] - See instructions Christiano Alaniz MD [Nurse Practitioner, Pain Management] - See instructions Activity Restrictions/Add. Instructions Additional Instructions/Restrictions: You were evaluated on an emergency basis. It is very important that you follow- up with your primary care provider and any specialist who we discussed within the next 2 days in order to better assess your health more comprehensively. For example, incidental findings on imaging or laboratory results that were performed today may be discovered, which do not require immediate medical care, but may impact your health in the future. If your symptoms worsen or persist, please return to the emergency department immediately for reassessment. Take all medications as prescribed. In queue for allowing me to participate in your health care, and I hope you feel better soon. Clinical Impressions Clinical Impression: Chronic pain Instructions Patient Instructions: DI for Chronic Pain in Adults Print Language Print Language: Greenlandic Discharge ED Provider: Gautam New General Adult HPI General Chief complaint: PAIN Stated complaint: Left hip and knee pain,no injury Time Seen by Provider: 05/30/25 21:33 History of Present Illness HPI narrative: 65-year-old male with a history of chronic pain presents to the emergency department with complaints of ongoing pain in his low back, left hip, left knee. Patient was recently seen at this emergency department where he had CT scans of his back and hip as well as x-rays of his femur and knee that were unremarkable for acute findings but were positive for degenerative changes. Patient denies any new injuries to the area. He reports that he takes morphine 15 mg twice daily as well as gabapentin 600 mg twice daily naproxen twice daily and was just discharged from this facility with muscle relaxers. he reports that he took all those medications approximate 1 hour prior to arrival without relief of symptoms. Related Data Home Medications ?Medication ?Instructions ?Recorded ?Confirmed aspirin 81 mg tablet,delayed 81 mg PO DAILY prevent 07/11/24 release (Aspir-) morphine 15 mg tablet,extended 15 mg PO Q12H Pain 07/0207/11/24 release omeprazole 40 mg capsule,delayed 40 mg PO DAILY GERD 0 10/23/20 07/11/24 release gabapentin 400 mg capsule 800 mg PO BID Pain 10/22/21 07/11/24 loratadine 10 mg tablet 10 mg PO DAILY PRN allergies 10/22/21 07/11/24 rosuvastatin 20 mg tablet 40 mg PO DAILY Cholesterol 0 02/07/22 07/11/24 naproxen sodium 220 mg tablet 220 mg PO BID PRN Pain 1 07/17/21 07/11/24 (Aleve) ropinirole 0.5 mg tablet 0.5 mg PO HS 12/29/22 Previous Rx's ?Medication ?Instructions ?Recorded albuterol sulfate 90 mcg/actuation 2 puff inhalation Q 6H PRN 01/20/23 aerosol inhaler (Ventolin HFA) shortness of breath or wheezing #6.7 grams ezetimibe 10 mg tablet See Rx Instructions .Route 1 .COMPLEX #90 tabs isosorbide mononitrate 30 mg See Rx Instructions .Rout e 06/20/24 tablet,extended release 24 hr .COMPLEX #30 tabs metoprolol succinate 50 mg See Rx Instructions .Route 12/13/24 tablet,extended release 24 hr .COMPLEX #180 tabs methocarbamol 500 mg tablet 500 mg PO BID PRN muscle s pasm #30 05/16/25 tabs Allergies Allergy/AdvReac Type Severity Reaction Status Date / Time No Known Allergies Allergy Verified 07/11/24 14:20 [facility] Disclaimer: The information contained in this section may have been updated after the patient was seen, as this information can be updated by other users. Medical History Tobacco dependence syndrome Dyspnea Gastroesophageal reflux disease Encounter for pre-operative cardiovascular clearance Abnormal electrocardiography Family history of heart disease Social History Smoking Status: Current every day smoker tobacco type: cigarettes packs per day: 1 alcohol intake: never current occupational status: unemployed Travel in the last 8 weeks?: Inside the [place] household members: spouse caffeine: Yes Have you lived/traveled outside US in past 30 days?: No Contact w/someone who lives/traveled outside US past 30 days?: No Exposure to someone with infectious disease in past 14 days?: No Do you have a fever (greater than 100.4 F or 38 C)?: No Have you tested positive for COVID-19?: No Exposed to someone with COVID-19 in past 14 days?: No Do you have a sore throat?: No Do you have a cough?: No Do you have any weakness?: No Do you have any diarrhea?: No Are you experiencing any unusual bleeding?: No Do you have any muscle aches/pain?: No Do you have any abdominal pain?: No Are you experiencing loss of taste or smell?: No Other Medical History Have you received the Flu Vaccine for this season: No Have you received the Pneumonia Vaccine: No ROS Obtained: Yes other Musculoskeletal Musculoskeletal: Reports arthralgias, Reports back pain and Reports joint stiffness Physical Exam Narrative Physical exam: General: Awake, aware, in no acute distress HEENT: Normocephalic, no evidence of trauma CV: RRR, no murmurs, rubs, or gallops Pulm: CTA bilaterally with no rhonchi, rales, wheezes ABD: Nontender, no swelling, guarding, or rebound tenderness Psych, appropriate mood and affect Musculoskeletal: Patient reports tenderness on palpation of left hip and knee. Sensations intact with 2+ pulses. No ecchymosis, erythema, edema or heat noted to these areas. Patient with 2+ pulses in all extremities General General appearance: alert Respiratory Respiratory exam: Present normal lung sounds bilaterally Cardiovascular Cardiovascular exam: Present regular rate Neurological Exam Neurological exam: Present alert Medical Decision Making Medical Records Screening: Per USPSTF and CDC recommendations, given the prevalence of disease in our region, it is our hospital?s policy to screen for HIV and viral Hepatitis for all patients aged 18 and over and those with ongoing risk factors. [place] Inquiry Pt receiving controlled substance: No Vital Signs: 05/30/25 21:42 05/30/25 21:48 Temperature 98.0 F 98.0 F Temperature Source Oral Pulse Rate 79 Pulse Rate [Left] 79 Respiratory Rate 18 18 Blood Pressure 174/83 H Blood Pressure [Right Arm] 174/83 H Blood Pressure Mean [Right Arm] 113 02 Sat by Pulse Oximetry 99 98 Oxygen Delivery Method Room Air Room Air Orders (Tests/Meds): ORDERS Category Date Time Status HIV Combo Stat Lab 05/30/25 21:47 Ordered Hepatitis C Ab Qual. W/ RFX Stat Lab 05/30/25 21:47 Ordered Medical Decision Narrative: Initial impression of presenting illness: 65-year-old male presents emergency department with complaints of ongoing pain to his low back, left hip and left knee. Patient was recently seen at this facility with same complaints where he had CT of his lumbar spine and pelvis as well as x-rays of his femur and knee that were unremarkable for acute findings but positive for degenerative changes. Patient was discharged with muscle relaxers from that visit patient reports that he takes morphine, gabapentin twice daily chronically as prescribed by his primary care provider for chronic pain. He reports that he took all of his pain medications approximate 1 hour prior to arrival without relief of symptoms. He denies any recent injury to the areas. Differential diagnosis includes but is not limited to: Degenerative disc disease, herniated disc, musculoskeletal strain, osteoarthritis, cellulitis, septic joint Patient arrives hemodynamically stable, afebrile, without respiratory distress with vital signs interpreted by myself. Initial physical exam reveals tenderness to palpation of left hip and knee as well as lumbar back. No erythema, ecchymosis, edema or heat noted to the area. No vertebral tenderness present. Stations intact with 2+ pulses in all extremities. Rest of exam is unremarkable Disposition: Advised patient that from an emergency standpoint there was not much else that we could do. Formed him that he had already had the appropriate imaging studies that were available to us that were unremarkable except for chronic degenerative changes. I also informed him that he is already on a large amount of various pain medications and that there would not be any additional medications that we could add to his daily regimen. I did recommend that he follow-up with his primary care provider which he states is the person that manages his pain medications. I also offered patient contact information for pain management provider. I instructed him to return to the emergency department for any new or worsening symptoms. She was agreeable to the plan of care. Critical Care Critical Care Time Critical Care Time: No
[2025-05-30 21:42] VITALS: BP 174/83; PULSE 79; RESP 18; TEMP 36.7; O2SAT 99; BMI 35.2
[2025-05-30 21:48] VITALS: BP 174/83; PULSE 79; RESP 18; TEMP 36.7; O2SAT 98
--- OUTSIDE RECORDS SUMMARY | 2025-05-30 21:52 | XMS_ITS | Data Portability ---
Author Organization [facility] TONJA Boykin DYESS CLOSED Address [address] [place] [address] Assessment Encounter Date Assessment Date Assessment LastModified by Organization Details LastModified Time 08/02/2018 08/02/2018 SURGERY DATE: 08/02/2018 PREOPERATIVE DIAGNOSIS: Elevated PSA, 9.1. POSTOPERATIVE DIAGNOSIS: Elevated PSA, 9.1. PROCEDURE: Transrectal ultrasound of the prostate and biopsy. ANESTHESIA: Local. COMPLICATIONS: None. CONDITION: Stable. SURGEON: Olvin Rangel MD INDICATIONS: This is a 58-year-old white male with PSA elevation to 9. He has had a previous prostate biopsy in 2016 when his PSA was 5.9. OPERATIVE NOTE: The patient was taken to the operating room after informed consent was obtained. He had performed preoperative oral antibiotics and an enema at home. On the stretcher, he was placed into the left lateral decubitus position and a transrectal ultrasound probe was placed into the rectum without difficulty. The prostate was easily visualized and was measured at 30 cm3. There was no evidence of hypoechoic or hyperechoic lesions. Small calcifications were noted in the central zone bilaterally. Local anesthetic was placed in these neurovascular bundles and after couple of minutes, 12 biopsies were taken in a systematic fashion throughout the prostate, 6 on the right and 6 on the left. The patient tolerated the procedure well. There were no complications. The probe was removed. Routine instructions were given and he is to call me in 3 days for the results. [email or web address] Not available 08/02/2018 16:27:22 Plan of Treatment Reminders Order Date Submit Date Provider Last Modified By Organization Details Last Modified Time Details Appointments None record ed. Lab None record ed. Referral None record ed. Procedures None record ed. Surgeries None record ed. Imaging None record ed. Medication Orders None record ed. Patient TargetsNo targets recorded. Patient InstructionsNo instructions recorded. Reason for Referral None Reported. Results Created Date Observation Date Name Description Value Unit Range Abnormal Flag Note LastModifiedBy Organization Detail LastModifiedTime 08/03/19 19 08/02/2018 surgi jimmy patho logy study surgical pathology procedure SEE BELOW Depar tment of Patho logy Surgi jimmy Patho logy Repor t NAME: BRIAN ROSE PATH. :SS-1 9 [id number] Copy to: Diagn osis: Prost ate needl e core biops ies (A-L) : A) Left base: Benig n prost atic tissu e. B) Left mid: Benig n prost atic tissu e. C) Left apex: Benig n prost atic tissu e. D) Right base: Benig n prost atic tissu e. E) Right mid: Benig n prost atic tissu e. F) Right apex: Benig n prost atic tissu e. G) Left later al base: Benig n prost atic tissu e. H) Left later al mid: Benig n prost atic tissu e. I) Left later al apex: Benig n prost atic tissu e. J) Right later al base: Benig n prost atic tissu e. K) Right later al mid: Benig n prost atic tissu e. L) Right later al apex: Benig n prost atic tissu e. SOURC E OF SPECI MEN: PROST ATE BIOPS Y, A.) LEFT BASE PROST ATE BIOPS Y, C.) LEFT APEX PROST ATE BIOPS Y, E.) RIGHT MID PROST ATE BIOPS Y, G.) LEFT LAT BASE PROST ATE BIOPS Y, I.) LEFT LAT APEX PROST ATE BIOPS Y, K.) RIGHT LAT MID CLINI JIMMY INFOR MATIO N: R97.2 0 ELEVA ZAMZAM PSA Gross Descr iptio n: Recei arnie in forma galileo label ed with the patie nt's name are twelv e speci mens desig nated as prost ate biops y. All tissu e consi sts of oropeza cylin ders 0.[address]. If tissu e from two sites is place d in one casse tte, the latte r site is inked black ; e.g. if tissu es from site A and B are in one casse tte, the tissu es from site B are inked . SECTI ON LENGT H IN CENTI METER S A) Left Base 1.8 cm (1 cores ) B) Left Mid 1.8 cm (1 cores ) C) Left [place] 1.7 cm (1 cores ) D) Right Base 1.6 cm (1 cores ) E) Right Mid 2.0 cm (1 cores ) F) Right [place] 0.5, 1.2 cm (2 cores ) G) Left Lat Base 1.3 cm (1 cores ) H) Left Lat Mid 1.3 cm (1 cores ) I) Left Lat [place] 1.3 cm (1 cores ) J) Right Lat Base 1.5 cm (1 cores ) K) Right Lat Mid 1.6 cm (1 cores ) L) Right Lat [place] 1.6 cm (1 cores ) JAB 08/02 05:28 PM Micro scopi c Descr iptio n: There is no evide nce of carci noma or high- grade PIN. GONZALEZ Chandra M.D. Rachael d Out Date: 08/03 09:38 Page 1 of 1 Not Available [facility] [address] [place] [address], [place], [address], 08/03/2018 09:40:32 Result Notes None recorded. Medical Equipment None Reported. Medications Name Sig Start Date Stop Date Status Note LastModified by Organization Details LastModified Time gabapentin 800 mg tablet active Not Available Not Available No t Available ranitidine 150 mg tablet active Not Available Not Available No t Available morphine ER 15 mg tablet,extende d release active Not Available Not Available No t Available levofloxacin 500 mg tablet active Not Available Not Availabl e Not Available benazepril 10 mg tablet active Not Available Not Available No t Available naproxen 500 mg tablet active Not Available Not Available No t Available Vitals None Recorded Social History None recorded. Functional Status None recorded. Mental Status None recorded. Family History Nothing Reported. Medical History No medical history recorded. Past Encounters Encounter ID Performer Location Encounter Start Date Encounter Closed Date Diagnosis/Indication Diagnosis SNOMED-CT Code Diagnosis ICD10 Code Diagnosis IMO Codes Diagnosis Note [id number] OLVIN RANGEL MD SURGERY SCHEDULE [address] [place] [address] 08/02/2018 11:54:50 08/02/2018 11:59:40 Health Concerns Section Related Observation LastModified by Organization Detai ls LastModified Time None Recorded Concern Status LastModified by Organization Details LastModified Time None Recorded Advance Directives Directive None Recorded Payers Insurance Date Sequence Insurance Name Policy Number Policy Castillo Covered Member ID Castillo Member ID Guarantor Name 04/25/2020 1 [place] Brian Dyer [id number] Brian Dyer 08/10/2018 1 *SELF PAY* To kerry Dyer
--- OUTSIDE RECORDS SUMMARY | 2025-05-30 21:52 | XMS_ITS | Clinical Summary ---
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 Not on file Not [...] 2012 [facility]-Zoster Vaccines (1 of 2) 2012 [id number] Vaccine (1 - 2024- season) 2025 [facility]-Influenza [...] this topic Medical Devices Implanted Type Area Road Advisor Device Identifier Shelf Expiration Date Model / Serial / Lot Shell Modular Redapt 62mm - [id number] Implanted:Qty: 1 on 08/22/2022 by Paul Orozco MD at [facility] Right: Hip [employer]-[id number] 01/11/2032 [id number] / / [id number] Chg Head Oxin Mod Fem 44m - [id number] Implanted:Qty: 1 on 08/22/2022 by Paul Orozco MD at [facility] Right: Hip [employer]-[id number] 09/02/2031 [id number] / / [id number] Chg Sleeve Tit Mod Neck -4 - [id number] Implanted:Qty: 1 on 08/22/2022 by Paul Orozco MD at [facility] Right: Hip [employer]-[id number] 09/10/2031 [id number] / / [id number] Chg Screw Redapt Lock 20mm - [id number] Implanted:Qty: 1 on 08/22/2022 by Paul Orozco MD at [facility] Right: Hip [employer]-[id number] 01/29/2032 [id number] / / [id number] Chg Screw Ref Spher Head 35mm - [id number] Implanted:Qty: 1 on 08/22/2022 by Paul Orozco MD at [facility] Right: Hip [employer]-[id number] 02/26/2032 [id number] / / [id number] Liner R3 Xlpe Liner 44mm Id X 62 Od - [id number] Implanted:Qty: 1 on 08/22/2022 by Paul Orozco MD at [facility] Right: Hip [employer]-[id number] 04/20/2031 [id number] / / [id number] Chg Screw Ref Spher Head 25mm - [id number] Implanted:Qty: 1 on 08/22/2022 by Paul Orozco MD at [facility] Right: Hip [employer]-[id number] 03/14/2032 [id number] / / [id number] Chg Screw Ref Spher Head 25mm - [id number] Implanted:Qty: 1 on 08/22/2022 by Paul Orozco MD at [facility] Right: Hip [employer]-[id number] 03/14/2032 [id number] / / [id number] Chg Screw Ref Spher Head 15mm - [id number] Implanted:Qty: 1 on 08/22/2022 by Paul Orozco MD at [facility] Right: Hip [employer]-[id number] 11/28/2031 [id number] / / [id number] Chg Screw Redapt Lock 20mm - [id number] Implanted:Qty: 2 on 08/22/2022 by Paul Orozco MD at [facility] Right: Hip [employer]-[id number] 01/07/2032 [id number] / / [id number] Chg Screw Redapt Lock 15mm - [id number] Implanted:Qty: 1 on 08/22/2022 by Paul Orozco MD at [facility] Right: Hip [employer]-[id number] 08/18/2031 [id number] / / [id number] Chg Stem Syn Por Plus Santos Ho Sz - [id number] Implanted:Qty: 1 on 08/22/2022 by Paul Orozco MD at [facility] Right: Hip [employer]-[id number] 08/27/2031 [id number] / / [id number] Procedures Procedure Name Priority Date/Time Associated Diagnosis Comments HEMOGLOBIN A1C Routine 08/07/2022 3:00 PM EST Osteoarthritis of right hip, unspecified osteoarthritis type History of obesity from Last 3 Months or Most Recently Relevant to Health Maintenance Results * (ABNORMAL) Hemoglobin A1c (08/07/2022 3:00 PM EST) Hemoglobin A1c 5.9(H) <5.7 % 08/07/2022 6:32 PM EST [facility] Blood Venous blood specimen / Unknown [...] Adults <6.0% Children and Adolescents <7.5% Source: [place] [employer]. Standards of medical care in diabetes,2017. Diabetes Care.2017:40 (suppl 1):S1-S135. HbA1c assay performed by an ion-exchange chromatography method that is certified traceable to the DCCT. Paul Orozco MD LAB BLOOD ORDERABLES Final Resul t [facility] [address] [place] [phone] from Last 3 Months or Most Recently Relevant to Health Maintenance Insurance MEDICARE [employer] [place] [address] Advance Directives * Full Code (Latest Code Status on File) Date Activated Date Inactivated Comments 08/22/2022 1:17 PM 08/25/2022 6:56 PM Question Answer Comments Patient has decision-making capacity? Yes * Full Code Date Activated Date Inactivated Comments 12/04/2021 5:14 PM 12/10/2021 5:53 PM Question Answer Comments Patient has decision-making capacity? Yes Care Teams [employer] Relationship Specialty Start Date End Date Kuldeep Garcia MD [facility] [id number] PCP - General 10/29/21 Dionisio Earl MD [address] [place] [id number] Referring Physician Cardiology 10/29/21
--- OUTSIDE RECORDS SUMMARY | 2025-05-30 21:54 | XMS_ITS | Patient Health Record ---
[facility] [address] [place] [id number] Care Team Providers Care Broomcorn Sorter Name Role Phone Imani Garcia Primary Care Provider Richard Morales Unavailable [phone] Allergies Allergen (clinical drug ingredient) Drug/Non Drug [...] 48 Performing Lab: Notes/Report: Test performed by [facility] , [address], [place] [address] Guanako Chadwick MD, Assistant Professor Of Biology CLIA: [id number] Sodium 143 135-145 mmol/L Potassium 4.3 3.5-5.3 [...] 25 Performing Lab: Notes/Report: Test performed by [facility], [address] , [place] [address] Guanako Chadwick MD, Assistant Professor Of Biology CLIA: [id number] Lipid Panel Footnote See Below *Based on optimal reference values. Please refer to the DOS for additional information regarding diagnostic lipid reference ranges, patient management based on the recently updated lipid guidelines ([employer] [employer] Task Force on Clinical Practice [...] biopsy) Performing Lab: Notes/Report: Test performed by [facility], [address] , [facility], [place] [address] Guanako Chadwick MD, Assistant Professor Of Biology CLIA: [id number] PSA 9.42 <4.00 ng/mL Please note this [...] once a day (in the morning) Active Gabapentin 800 MG 1 tab(s) orally 2 ti mes a day; Duration: 30 days 03/31/2025 Active Aspirin 81 MG 1 tablet orally once a day Active Omeprazole 40 MG 1 cap(s) orally once a day; Duration: 90 days Active Naproxen 500 mg 1 tablet with food o rally twice a day; Duration: 90 days Active MS Contin 15 MG 1 tab(s) orally Two times a day; Duration: 30 days 05/30/2025 Active Rosuvastatin Calcium 40 mg 1 tablet oral ly once a day Active rOPINIRole HCl 1 MG 1 tablet Orally At B ed Time; Duration: 90 days Active Immunizations Vaccine Route Administration Date Status Comme nts Tetanus Tdap-Adacel (over 7yrs) Unknown 07/17/2021 Admi nistered Problems Problem Type SNOMED Code ICD Code Onset Dates Problem Status W/U Status Risk Notes Problem Anxiety disorder (103450446) Anxiety disorder (300.00) Active confirmed Problem Gastroesophageal reflux disease (104808923) GERD (gastroesophageal reflux disease) (K21.9) Active confirmed Problem Coronary arteriosclerosis (26196161) ASCVD (arteriosclerotic cardiovascular disease) (I25.10) Active confirmed Problem Back pain (581341906) Back pain (M54.9) Active confirmed Problem Hypertension (05730088) HTN (hypertension) (I10) Active confirmed Problem Morbid obesity (058996529) Morbid obesity (E66.01) Active confirmed Problem Hypertriglyceridemia (893537349) Hypertriglyceridemia (E78.1) Active confirmed Problem Osteoarthritis of knee (889303545) DJD (degenerative joint disease) of knee (M17.9) Active confirmed Problem Chronic pain syndrom e (377051203) Chronic pain syndrome (G89.4) Active confirmed Problem Nicotine dependence (82835451) Personal history of nicotine dependence (Z87.891) Active confirmed Problem Generalized osteoarthritis (482175310) Generalized osteoarthritis (M15.9) Active confirmed Problem Congenital dislocation of right hip (107615389) 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) Active confirmed Problem Body mass index 40+ - morbidly obese (433476679) BMI 40.0-44.9, adult (Z68.41) Active confirmed Problem Dyslipidemia (770334359) Dyslipidemia (E78.5) Active confirmed Problem Restless legs (52807606) RLS (restless legs syndrome) (G25.81) Active confirmed Problem Tobacco use (446728805) Tobacco use disorder (F17.200) Active confirmed Problem Retinal artery occlusion (361495666) Retinal artery occlusion (H34.9) Active confirmed Problem Thoracic aortic aneurysm without rupture (46724898) Thoracic aortic aneurysm without rupture (I71.2) Active confirmed Vital Signs Heart Rate 62 /min 04/04/2025 Blood pressure diastolic 80 mm Hg 04/04/2025 Height 70 in 04/04/2025 Blood pressure systolic 132 mm Hg 04/04/2025 Weight 269.6 lbs 04/04/2025 BMI 38.68 kg/m2 04/04/2025 Encounters Encounter Location Date Provider Diagnosis [facility] [address] [place] [id number] 06/02/2024 R Kuldeep Jose RLS (restless legs syndrome) G25.81 ; Chronic pain syndrome G89.4 ; HTN (hypertension) I10 ; Dyslipidemia E78.5 ; 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 and 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.9 [facility] [address] [place] [id number] 08/02/2024 R Kuldeep Jose RLS (restless legs syndrome) G25.81 ; Chronic pain syndrome G89.4 ; HTN (hypertension) I10 ; Dyslipidemia E78.5 ; 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 ; 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.9 and Tobacco use disorder F17.200 [facility] [address] [place] [id number] 10/04/2024 R Kuldeep Jose Chronic pain syndrom e G89.4 ; 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 ; Dyslipidemia E78.5 ; RLS (restless legs syndrome) G25.81 ; HTN (hypertension) I10 ; 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.9 ; Tobacco use disorder F17.200 ; ASCVD (arteriosclerotic cardiovascular disease) I25.10 ; GERD (gastroesophageal reflux disease) K21.9 ; BMI 40.0-44.9, adult Z68.41 and Morbid obesity E66.01 [facility] [address] [place] [id number] 12/01/2024 R Kuldeep Jose Chronic pain syndrom e G89.4 ; 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 and 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.9 [facility] [address] [place] [id number] 02/02/2025 R Kuldeep Jose Chronic pain syndrom e G89.4 ; 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 and 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.9 [facility] [address] [place] [id number] 04/04/2025 R Kuldeep Jose Chronic pain syndrom e G89.4 and 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.9 [facility] [address] [place], [place] [id number] 04/04/2025 R Kuldeep Jose HTN (hypertension) I 10 ; Dyslipidemia E78.5 ; GERD (gastroesophageal reflux disease) K21.9 ; RLS (restless legs syndrome) G25.81 ; ASCVD (arteriosclerotic cardiovascular disease) I25.10 ; Generalized osteoarthritis M15.9 and Prostate cancer screening Z12.5 [facility] [address] [place], [place] [id number] 07/05/2024 R Kuldeep Jose Chronic pain syndrom e G89.4 [facility] [address] [place], [place] [id number] 07/06/2024 R Kuldeep Jose [facility] [address] [place] [id number] 07/06/2024 R Kuldeep Jose [facility] [address] [place] [id number] 07/26/2024 R Kuldeep Jose Chronic pain syndrom e G89.4 [facility] [address] [place], [place] [id number] 07/26/2024 R Kuldeep Jose Chronic pain syndrom e G89.4 [facility] [address] [place] [id number] 07/27/2024 R Kuldeep Jose [facility] [address] [place] [id number] 07/27/2024 R Kuldeep Jose [facility] [address] [place], [place] [id number] 07/27/2024 R Kuldeep Jose [facility] [address] [place] [id number] 07/29/2024 R Kuldeep Jose [facility] [address] [place] [id number] 08/03/2024 R Kuldeep Jose [facility] [address] [place], [place] [id number] 08/12/2024 R Kuldeep Jose Chronic pain syndrom e G89.4 [facility] [address] [place], [place] [id number] 08/15/2024 R Kuldeep Jose [facility] [address] [place], [place] [id number] 08/29/2024 R Kuldeep Jose Chronic pain syndrom e G89.4 [facility] [address] [place] [id number] 09/05/2024 R Kuldeep Jose Chronic pain syndrom e G89.4 [facility] [address] [place] [id number] 09/28/2024 R Kuldeep Jose Chronic pain syndrom e G89.4 [facility] [address] [place], [place] [id number] 09/29/2024 R Kuldeep Jose [facility] [address] [place] [id number] 10/03/2024 R Kuldeep Jose [facility] [address] [place], [place] [id number] 10/07/2024 R Kuldeep Jose [facility] [address] [place], [place] [id number] 10/28/2024 Richard Newnan Chronic pain syndrom e G89.4 [facility] [address] [place], [place] [id number] 10/31/2024 Richard Newnan Chronic pain syndrom e G89.4 [facility] [address] [place] [id number] 10/31/2024 R Kuldeep Jose [facility] [address] [place] [id number] 11/01/2024 R Kuldeep Jose [facility] [address] [place] [id number] 12/30/2024 R Kuldeep Jose Chronic pain syndrom e G89.4 [facility] [address] [place] [id number] 01/31/2025 R Kuldeep Jose Chronic pain syndrom e G89.4 [facility] [address] [place], [place] [id number] 03/01/2025 R Kuldeep Jose Chronic pain syndrom e G89.4 [facility] [address] [place] [id number] 03/31/2025 R Kuldeep Jose Chronic pain syndrom e G89.4 [facility] [address] [place], [place] [id number] 04/03/2025 R Kuldeep Jose Chronic pain syndrom e G89.4 [facility] [address] [place] [id number] 04/03/2025 R Kuldeep Jose [facility] [address] [place] [id number] 04/06/2025 R Kuldeep Jose [facility] [address] [place] [id number] 05/01/2025 R Kuldeep Jose Chronic pain syndrom e G89.4 [facility] [address] [place], [place] [id number] 05/03/2025 R Kuldeep Jose [facility] [address] [place] [id number] 05/05/2025 R Kuldeep Jose [facility] [address] [place] [id number] 05/30/2025 R Kuldeep Jose Chronic pain syndrom e G89.4 Assessments Encounter Date Diagnosis (ICD Code) Assessment Notes Treatment Notes Treatment Clinical Notes Section Notes 08/12/2024 Chronic pain syndrome (ICD-10 - G89.4) 08/29/2024 Chronic pain syndrome (ICD-10 - G89.4) 10/04/2024 Chronic pain syndrome (ICD-10 - G89.4) 10/04/2024 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) 10/28/2024 Chronic pain syndrome (ICD-10 - G89.4) 10/31/2024 Chronic pain syndrome (ICD-10 - G89.4) 01/31/2025 Chronic pain syndrome (ICD-10 - G89.4) 03/31/2025 Chronic pain syndrome (ICD-10 - G89.4) 04/03/2025 Chronic pain syndrome (ICD-10 - G89.4) 05/01/2025 Chronic pain syndrome (ICD-10 - G89.4) 05/30/2025 Chronic pain syndrome (ICD-10 - G89.4) 02/02/2025 Chronic pain syndrome (ICD-10 - G89.4) 04/04/2025 HTN (hypertension) (ICD-10 - I10) 04/04/2025 DJD (degenerative joint disease) of knee (ICD-10 - M17.9) 04/04/2025 Chronic pain syndrome (ICD-10 - G89.4) 03/01/2025 Chronic pain syndrome (ICD-10 - G89.4) 12/30/2024 Chronic pain syndrome (ICD-10 - G89.4) 04/04/2025 Dyslipidemia (ICD-10 - E78.5) 12/01/2024 Chronic pain syndrome (ICD-10 - G89.4) 09/28/2024 Chronic pain syndrome (ICD-10 - G89.4) 09/05/2024 Chronic pain syndrome (ICD-10 - G89.4) 08/02/2024 Chronic pain syndrome (ICD-10 - G89.4) 07/26/2024 Chronic pain syndrome (ICD-10 - G89.4) 07/26/2024 Chronic pain syndrome (ICD-10 - G89.4) 07/05/2024 Chronic pain syndrome (ICD-10 - G89.4) 08/02/2024 RLS (restless legs syndrome) (ICD-10 - G25.81) 06/02/2024 Chronic pain syndrome (ICD-10 - G89.4) 06/02/2024 RLS (restless legs syndrome) (ICD-10 - G25.81) 06/02/2024 HTN (hypertension) (ICD-10 - I10) 08/02/2024 HTN (hypertension) (ICD-10 - I10) 12/01/2024 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) 04/04/2025 GERD (gastroesophageal reflux disease) (ICD-10 - K21.9) 02/02/2025 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) 10/04/2024 Dyslipidemia (ICD-10 - E78.5) 10/04/2024 RLS (restless legs syndrome) (ICD-10 - G25.81) 02/02/2025 DJD (degenerative joint disease) of knee (ICD-10 - M17.9) 12/01/2024 DJD (degenerative joint disease) of knee (ICD-10 - M17.9) 04/04/2025 RLS (restless legs syndrome) (ICD-10 - G25.81) 08/02/2024 Dyslipidemia (ICD-10 - E78.5) 06/02/2024 Dyslipidemia (ICD-10 - E78.5) 06/02/2024 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) 08/02/2024 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) 04/04/2025 ASCVD (arteriosclerotic cardiovascular disease) (ICD-10 - I25.10) 10/04/2024 HTN (hypertension) (ICD-10 - I10) 10/04/2024 DJD (degenerative joint disease) of knee (ICD-10 - M17.9) 04/04/2025 Generalized osteoarthritis (ICD-10 - M15.9) 06/02/2024 DJD (degenerative joint disease) of knee (ICD-10 - M17.9) 08/02/2024 DJD (degenerative joint disease) of knee (ICD-10 - M17.9) 08/02/2024 Tobacco use disorder (ICD-10 - F17.200) 04/04/2025 Prostate cancer screening (ICD-10 - Z12.5) 10/04/2024 Tobacco use disorder (ICD-10 - F17.200) 10/04/2024 ASCVD (arteriosclerotic cardiovascular disease) (ICD-10 - I25.10) 10/04/2024 GERD (gastroesophageal reflux disease) (ICD-10 - K21.9) 10/04/2024 BMI 40.0-44.9, adult (ICD-10 - Z68.41) 10/04/2024 Morbid obesity (ICD-10 - E66.01) Plan Of Treatment Pending Test Test Name Order Date H-Lipid Panel 10/04/2024 H-CMP 10/04/2024 Next Appt Details Provider Name:Imani Maza jacob, 06/06/2025 11:30:00 AM, [address], [address], [place], [place], [id number], Provider Name:Imani Light Shaunna james, 10/03/2025 11:45:00 AM, [address], [address], [place], [place], [id number], Insurance Providers Payer Name Payer Address Payer Phone Subscriber Number Group Number Insured Name Patient Relationship to Insured Coverage Start Date Coverage End Date [employer] [address] [place] [id number] Brian Dyer Self - patient is the insured MEDICARE PART B [address] [address] [place] [id number] Brian Dyer Self - patient is the [...] History Reason Date(Month/Year) high blood pressure [facility] 11/2012
[2025-05-30 21:59] VITALS: BP 133/76; PULSE 80; RESP 18; TEMP 36.9; O2SAT 100
== END 2025-05-30 22:05 | disposition home or self-care (01) ==
PROVIDERS: Emergency Provider Student in an Organized Health Care Education/Training Program; PCP Family Medicine
DX: M25.552 Pain in left hip (principal); M25.562 Pain in left knee
CPT/HCPCS: 99282; 99283